=== PATIENT | female | born 1940 | race Caucasian/White ===

== ENCOUNTER 2019-05-29 02:02 | Inpatient (IN) | payer MEDICARE ==
[2019-05-29] MEDS ORDERED: DOPamine 400 MG/D5W 250 ML 250 ML ONE (02:12)
[2019-05-29] MEDS ORDERED: Norepinephrine 8 MG/0.9% NS 250 ML ONE (02:14)
[2019-05-29] MEDS: Norepinephrine 8 MG/0.9% NS 250 ML IVPB SCH ×3 (02:15→23:54)
[2019-05-29] MEDS ORDERED: Acetaminophen 325 MG TAB PO PRN (02:44)
[2019-05-29] MEDS ORDERED: DOPamine 400 MG/D5W 250 ML 250 ML IVPB SCH (03:00)
[2019-05-29] MEDS: Sodium Chloride 0.9% 1,000 ML IV SCH ×3 (03:30→22:50)
[2019-05-29 04:12] LABS: Band 35 % (5-11); Hemoglobin 7.6 g/dL (12.0-16.0); Lymphocytes 10 % (21-51); MDiff Complete? YES; Mean Corpuscular HGB CONC 31.5 g/dL (32.0-36.0); Mean Corpuscular Hemoglobin 29.7 pg (27.0-31.0); Mean Corpuscular Volume 94.3 fL (78.0-98.0); Mean Platelet Volume 9.6 fL (7.4-10.4); Monocytes 11 % (0-10); Neutrophil 44 % (42-75); Nucleated RBC 1 % (0); Platelet Count 111 thou/uL (130-400); Platelet Morphology Comment Appears Decreased; RBC Distribution Width 15.8 % (11.5-14.5); Red Blood Cell (RBC) Count 2.57 mill/uL (4.20-5.40); White Blood Cell (WBC) Count 6.1 thou/uL (4.8-10.8)
[2019-05-29 04:18] LABS: ALT (SGPT) 12 U/L (8-55); AST (SGOT) 23 U/L (5-34); Albumin 2.6 g/dL (3.4-4.8); Alkaline Phosphatase 74 U/L (40-110); Anion Gap 10 mmol/L (10-20); BUN (Urea Nitrogen) 17 mg/dL (9.8-20.1); Bilirubin, Total 0.3 mg/dL (0.2-1.2); CK (CPK) 141 U/L (29-168); Calc. Creatinine Clearance 42 mL/min (70-130); Calcium 8.2 mg/dL (7.8-10.44); Carbon Dioxide 17 mmol/L (23-31); Chloride 115 mmol/L (98-107); Estimated GFR-MDRD 50; Globulin 2.1 g/dL (2.4-3.5); Glucose 66 mg/dL (83-110); Magnesium 1.5 mg/dL (1.6-2.6); Potassium 4.5 mmol/L (3.5-5.1); Protein, Total 4.7 g/dL (6.0-8.3); Sodium 137 mmol/L (136-145)
[2019-05-29 04:20] LABS: Troponin I 0.148 ng/mL (< 0.028)
[2019-05-29] MEDS ORDERED: Cefepime 1 GM in Sodium Chloride 0.9% 100 ML IVPB SCH (06:00)
[2019-05-29] MEDS ORDERED: Vancomycin HCl 1 GM in Premix Bag 1 BAG IVPB SCH (06:00)
--- NOTE | 2019-05-29 06:11 | HP ---
CHIEF COMPLAINT: Transfer from [facility] for sepsis. HISTORY OF PRESENT ILLNESS: This patient is a 79-year-old female, who presented to the [facility] approximately one month ago, at which time, she had fever of unknown origin, but was treated and resolved. The patient has a history of significant coronary artery disease including ventricular tachycardia, requiring pacemaker and defibrillator. She has a history of smoking until 1999, and she had presented previously with a large thyroid mass, surgically removed by Dr. 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 The patient has subsequently been treated by Dr. Newton in [place] and ultimately that led to her prior admission for fever. At that time, she reportedly had a white count of around 1000 and again the workup was negative for any specific source. The patient returned to the hospital in [place] on 05/28 with shortness of breath, cough, and fever. She was somewhat hypotensive, but appeared to improve with some fluid resuscitation and was subsequently admitted to Dr. Alonzo Mix. The patient fairly quickly had some decline in her blood pressures, requiring further fluid resuscitation and initiation of pressors with dopamine. The patient's workup there included labs which were notable for CMP with a BUN of 13, creatinine of 1.5, glucose was 104, and magnesium was 1.2. Her troponin was 0.06, CK-MB 0.87, myoglobin was 438. White count was 2.0, hemoglobin 7.9, and platelets 96. She had 62% segmented neutrophils, 6% bands, 26% lymphocytes, and 6% monocytes. INR was 1.3, PTT 26. Reportedly, her chest x-ray was negative. Given the patient's cardiac history, her underlying cancer, pancytopenia, sepsis with requirement for pressors, the patient was subsequently transferred to this facility for a higher level of care. In [place], the patient was started on a dopamine drip and at one point, a Levophed drip as well. She was started on Tamiflu, vancomycin, and cefepime. Her pressure at the time of transfer was stable with systolic in the 80s on the pressors. REVIEW OF SYSTEMS: All other systems reviewed. The patient reports that she felt like she needed to void. She does have a Rios catheter in place which appears to be draining adequately. 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 Subsequent to the thyroidectomy, the patient has vocal cord dysfunction and hypophonia. She has a history of coronary artery disease with stents, subsequent ventricular tachycardia with a pacemaker defibrillator placed. She is undergoing chemotherapy. The regimen is not presently known. Has hypertension, hyperlipidemia. PAST SURGICAL HISTORY: Coronary stents, total hysterectomy, she has had a patellar fracture repair, left hip fracture repair with subsequent hardware removal. SOCIAL HISTORY: History of smoking for years, quit in 1999. No history of drugs or alcohol. She is full code, and her son was made as her [id number] for healthcare decisions while at the hospital in [place]. FAMILY HISTORY: Notable for heart disease and hypertension. PHYSICAL EXAMINATION: VITAL SIGNS: Temperature is 103, pulse 97, BP 101/58, and O2 saturation 94%. GENERAL APPEARANCE: Age-appropriate female. She has some alopecia. She is hypophonic, but awake and alert, very pleasant, and cooperative. HEENT: PERRL. No OP lesions. Edentulous. NECK: Supple and symmetric. HEART: Regular with no murmurs, gallops, or rubs. LUNGS: Clear bilaterally except there is significant amount of upper airway noise. ABDOMEN: Soft, nontender, and nondistended. There is a palpable fullness in the bladder area, which is minimally tender, feels generally smooth. EXTREMITIES: There is no cyanosis, clubbing, or edema. PSYCH: Normal affect and behavior. NEURO: The patient appears to have normal cognition. Cranial nerves intact. Moves all extremities spontaneously. IMPRESSION AND PLAN: 1. Sepsis, etiology is unclear. She appears to have unremarkable urinalysis and chest x-ray by report, she has very elevated procalcitonin and hypotension with fever. Lactic acid was normal. We will continue with the vancomycin and cefepime for now. We will repeat labs. Obtain a consult from ID. Certainly concerning for the possibility of some aspiration given her difficulty swallowing. She also has this fullness in her pelvis, which may be benign, but needs to be investigated further. We will likely need a CT, however, want to see what her repeat labs look like with regard to her kidney. 2. Acute hypoxic respiratory failure, requiring supplemental oxygen again may be due to some aspiration pneumonitis. We will need to repeat the chest x-ray as well. In the meantime, continue supplemental oxygen as needed. 3. Hypotension. The patient is requiring dopamine and Levophed pressors in order to maintain pressure support. We will continue with IV fluids, normal saline 125 mL/h. 4. History of coronary artery disease, appears to be stable. We will continue with aspirin. Obtain echocardiogram. 5. Hypertension. Avoiding her antihypertensive medications given her hypotension. 6. B-cell lymphoma. Reportedly, her chemotherapy agents may be cardiotoxic as well. We will need to get information from Dr. Shanita Newton in [place] in order to get more detailed information on her chemotherapy regimen. 7. Hypomagnesemia. Recheck levels now. 8. History of ventricular tachycardia with AICD in place. 9. Pelvic/Bladder mass. May need CT to assess. Bladder scan did not reveal a full bladder. Rios is in place and draining some urine. Does not decompress the fullness. Job ID: [id number] MTDD
[2019-05-29] MEDS: Enoxaparin Sodium 40 MG/0.4 ML SYRINGE SC SCH (08:16)
--- NOTE | 2019-05-29 08:23 | RAD ---
CHEST 1 VIEW: HISTORY: Fever and cough. COMPARISON: None. FINDINGS: Abnormal consolidation of right upper lobe, right middle lobe, and right lower lobe. There is also s ome basilar consolidation of the left lung base. No pneumothorax. Port catheter tip projects over the inferior SVC. AICD/pacer leads are in good position. Incomplete evaluation of lumbar spine fusion hardware. IMPRESSION: Findings worrisome for multifocal pneumonia of the right lung versus underlying mass given the port c atheter. Followup after treatment recommended. POS: CET
[2019-05-29] MEDS: Gabapentin 300 MG CAP PO SCH ×3 (09:00→21:20)
[2019-05-29] MEDS: Aspirin 81 mg Enteric Coated Tablet PO SCH (09:00)
[2019-05-29] MEDS ORDERED: Famotidine/PF 20 mg/2ml Vial SLOW IVP SCH (09:00)
[2019-05-29] MEDS ORDERED: Magnesium 2 GM/50 ML 2 GM in Premix Bag 1 BAG IVPB SCH (10:15)
--- NOTE | 2019-05-29 10:44 | CON ---
DATE OF CONSULTATION: HISTORY OF PRESENT ILLNESS: Vesna Madsen is a 79-year-old female, who was transferred from [facility] with for high level of care. The patient's son is at the bedside, who gives adequate history. Six weeks ago, she was found to have a thyroid mass and underwent resection and thyroid tumor was found to be B-cell lymphoma. She then was seen by a local oncologist and received chemotherapy. Unfortunately, ever since the surgery, she is unable to swallow. She has been constantly aspirating. Yesterday, she presented to the hospital with , fever, and pneumonia. She now is on Levophed and dopamine to maintain a systolic blood pressure of 130. She has smoked a pack a day, quit smoking 20 years ago. According to the son who is at the bedside, she has gradually lost some weight. PAST MEDICAL HISTORY: Pertinent otherwise for hypertension; coronary artery disease, angioplasty; B-cell lymphoma, complicated by a vocal cord paralysis causing dysphagia. PAST SURGICAL HISTORY: Otherwise included a left patella surgery, recent thyroid surgery, pacemaker for V-tach. Coronary artery disease with stents, hysterectomy, angioplasty, thyroid surgery. MEDICATIONS: 1. Plavix 75. 2. Lipitor 80. 3. Metoprolol 25 twice a day. 4. Amlodipine 10. 5. Aspirin 81. 6. Gabapentin 300 three times a day. 7. Demadex 10. SOCIAL HISTORY: As noted. No alcohol or drug. ALLERGIES: NO ALLERGIES. REVIEW OF SYSTEMS: Otherwise, unremarkable. PHYSICAL EXAMINATION: VITAL SIGNS: Pulse 122, blood pressure 130/68, saturations 90%, respirations 25. CHEST: Extensive rhonchi and crackles, right greater than left. CARDIAC: Normal S1 and S2. No gallops. ABDOMEN: Soft. LABORATORY DATA: White count 6000, H and H 7.6 and 24, platelet count 111. Lytes are normal. Albumin is 2.6. ASSESSMENT AND PLAN: 1. Recurrent aspiration following thyroid surgeries with vocal cord paralysis. 2. Severe deconditioning, advanced age, B-cell lymphoma, coronary artery disease, right-sided pneumonia, pacemaker. 3. Therapeutic bronchoscopy performed. Continue pressors. I am going to add stress dose of steroids. She is probably going to need a PEG. Discussed with the son, they are agreeable. It is unlikely she is going to improve her swallowing with vocal cord paralysis. This is a 70-minute consultation note, 50% direct patient care. Job ID: [id number]
--- NOTE | 2019-05-29 11:57 | OP ---
DATE OF PROCEDURE: 05/29/2019 PROCEDURES PERFORMED: Bronchoscopy with lavage, therapeutic bronchoscopy. INDICATION: Retained secretions, recurrent aspiration. POSTBRONCHOSCOPY DIAGNOSES: Retained secretions, recurrent aspiration. DESCRIPTION OF PROCEDURE: After informed consent, a bite block was placed in. Posterior pharynx was sprayed with cetacaine. After the bite block was placed in, the flexible bronchoscope was passed. Posterior pharynx with large amount of pus, which was cleaned. The vocal cords were visualized. The left lung appeared to be partially paralyzed. Entering the trachea, there are copious amounts of thick purulent secretions, suctioned, lavaged to clear. Nani was sharp. Thereafter, the right lung was inspected, initially. Right upper lobe and right middle lobe, no endobronchial disease was seen, but some purulent secretions were suctioned and lavaged until completely clear. Left lung inspected thereafter, also was visualized in left upper and left lower lobe without much endobronchial disease, blood or pus. This was also lavaged with normal saline until clear. Washings sent for Gram stain C and S. The patient tolerated the procedure. We are going to start active neb treatments, steroids. Job ID: [id number]
[2019-05-29] MEDS ORDERED: Morphine 2 MG/ML SYRINGE SLOW IVP PRN (12:43)
[2019-05-29] MEDS: Hydrocortisone Sod Succ/PF 100 mg/2 ml Vial IVP SCH ×3 (13:31→23:54)
[2019-05-29] MEDS: MEROPENEM 1 GM/50 ML 1 GM in Premix Bag 1 BAG IVPB SCH ×2 (13:57→21:26)
[2019-05-29] MEDS ORDERED: Senokot S 8.6-50 MG TAB PO PRN (15:50)
--- NOTE | 2019-05-29 15:55 | PDOC.HOSPP ---
- Subjective Encounter Date: 05/29/19 Encounter Time: 12:50 Subjective: bronch in process; admitted w.. sepsis and hypovolumia; pallaitive on board, dexa and dmorphine - Objective Vital Signs & Weight: Vital Signs (12 hours) Pulse Resp Pulse Ox 05/29/19 13:49 100 05/29/19 13:45 114 H 16 100 05/29/19 07:07 96 Weight Weight 130 lb 15.273 oz Most Recent Monitor Data Heart Rate from ECG 110 NIBP 103/68 NIBP BP-Mean 79 Respiration from ECG 13 SpO2 100 I&O: 05/28/19 05/29/19 05/30/19 06:59 06:59 06:59 Intake Total 587.5 852 Output Total 260 150 Balance 327.5 702 Result Diagrams: 05/29/19 03:37 05/29/19 03:37 Hospitalist ROS - Medication Medications: Active Medications Generic Name Dose Route Start Last Admin Trade Name Freq PRN Reason Stop Dose Admin Acetaminophen 650 mg 05/29/19 02:44 05/29/19 07:51 Tylenol PO 650 mg Q4H PRN Administration Headache/Fever/Mild Pain (1-3) Albuterol/Ipratropium 3 ml 05/29/19 13:00 05/29/19 13:45 Duoneb NEB 3 ml [id number] RACHEL Administration Aspirin 81 mg 05/29/19 09:00 05/29/19 09:00 Ecotrin PO Not Given DAILY RACHEL Enoxaparin Sodium 40 mg 05/29/19 09:00 05/29/19 08:16 Lovenox SC 40 mg 0900 RACHEL Administration Gabapentin 300 mg 05/29/19 09:00 05/29/19 09:00 Neurontin PO Not Given TID RACHEL Hydrocortisone Sodium Succinate 50 mg 05/29/19 12:00 05/29/19 13:31 Solu-Cortef IVP 06/05/19 12:01 50 mg Q6HR RACHEL Administration Dopamine HCl/Dextrose 250 mls @ 11.138 mls/hr 05/29/19 03:00 05/29/19 02:15 Dopamine 400 Mg/D5w 250 Ml IVPB 250 mls INF RACHEL Administration Protocol 5 MCG/KG/MIN Norepinephrine Bitartrate 250 mls @ 0 mls/hr 05/29/19 03:30 05/29/19 08:15 Levophed IVPB 250 mls INF RACHEL Administration Protocol Titrate Meropenem 1 gm/ Device 50 mls @ 200 mls/hr 05/29/19 14:00 05/29/19 13:57 IVPB 50 mls Q8HR RACHEL Administration Morphine Sulfate 2 mg 05/29/19 12:43 05/29/19 13:32 Morphine SLOW IVP 2 mg Q6H PRN Administration Pain - Exam General Appearance: NAD, awake alert, ill appearing Eye: PERRL ENT: dry oral mucosa Neck: symmetric Heart: RRR, normal peripheral pulses Respiratory: CTAB, rales, rhonchi Gastrointestinal: normal bowel sounds Hosp A/P - Plan sepsis prob 2/2 hypovolumia/ and pneumonia -afebrile and no high wbcs -ho.e empiric abx w.. merum started given her sig. comorbidity of CA -solucortef to improve the BP -on levophed currently B cell lymphoma Bladder mass CA pain --palliative on board - dexa, morphine and stool softener. Hx of thyroid sux -TSH in nl range - not on suppl't Vocal cord paralaysis -s/p bronch dysphagia, sequelae of above - eval for PEG been discussed w.. son by Dr. Kelsey - it appears that poss trach and peg placement. Comm acqd pneumonia -on merum -no bl gera ordered at the time of admission DVT ppx- lovenox DNR
--- NOTE | 2019-05-29 18:36 | CON ---
DATE OF CONSULTATION: REASON FOR CONSULTATION: Pneumonia, bacteremia. 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 The patient developed a vocal cord dysfunction following thyroidectomy and has had problems with aspiration, had one episode of pneumonia treated in [place] just a few weeks ago. After the most recent episode of chemotherapy treatment, she developed shortness of breath and cough associated with temperature elevation, hypotension. She was admitted and initial creatinine is 1.5 and the white cell count is 2000 with 62% neutrophils, 6% bands. Chest x-ray was within normal limits. She was transferred to this area for higher level of care. Currently, Ms. Madsen is awake, but she is a bit drowsy. She has difficulty in handling her upper airway secretions and has obvious pooling of secretions in the large airways. She will cough intermittently. No headaches. No visual symptoms. No sore throat. No back pain. No chest pain. Mild to moderate dyspnea. No abdominal pain. No diarrhea. No pain in the right subclavian port which is accessed at this time. She was started on broad-spectrum coverage with vancomycin and cefepime. She is on IV fluids and vasopressors. PAST MEDICAL HISTORY: Hypertension, hyperlipidemia, recently diagnosed B-cell lymphoma in thyroid gland with thyroidectomy, vocal cord dysfunction, aspiration pneumonia, recently diagnosed coronary disease with stenting, ventricular tachycardia and AICD placement. PAST SURGICAL HISTORY: As above. Also, hysterectomy, patellar fracture repair and left hip fracture repair with removal of hardware eventually. SOCIAL HISTORY: Lives in the area close to [place], former smoker up to 1999. FAMILY HISTORY: Coronary artery disease, hypertension. CURRENT MEDICATIONS: 1. DuoNeb. 2. Ecotrin. 3. Lipitor. 4. Cipro. 5. Dopamine. 6. Lovenox. 7. Pepcid. 8. Neurontin. 9. Solu-Cortef. 10. Meropenem. 11. Levophed. PHYSICAL EXAMINATION: VITAL SIGNS: T-max 99.5. She was 100.9 earlier today, which was 101 the day before. BP 104/66, pulse 112, respiratory rate 20 to 28, O2 saturation 100 with a regular nasal cannula. Right subclavian port which is accessed. Indwelling Rios catheter. Urinary output ranges from 260-150 daily, balance is positive 300-700. SKIN: With areas of bruising in the upper extremities, the access port, the Rios catheter. HEENT: Some element of temporal wasting. Ocular movements are conjugate. Pupils are somewhat constricted. Conjunctivae normal. Oral cavity with no [place] teeth remaining. No other lesions noted. NECK: Supple, no jugular vein distention. LUNGS: With evidence of some secretions and large airways. Diminished breath sounds at bases. HEART: S1, S2. Regular rate. No S3 or S4. ABDOMEN: Soft, not distended or tender. No ascites. No bladder distention. NEURO: Diffusely weak, but no focal weakness. Plantar responses are flexor. She recognizes family members and where she is, some word-finding difficulty. LABORATORY DATA: White cell count 6.1, hemoglobin 7.6, MCV 94, platelets 111, 35% bands. Sodium 137, creatinine 1.06. Liver profile normal. Albumin 2.6, total protein 4.7, cortisol 22. IMAGING: Chest x-ray with multifocal pneumonia in the right lung. ASSESSMENT: 1. A large cell lymphoma diagnosed through thyroid mass biopsy. 2. Two episodes of chemotherapy with R-CHOP. 3. Swallowing dysfunction with episodes of aspiration. 4. Recurring episodes of pneumonia. DISCUSSION: The patient had a bronchoscopy done with lavage. The vocal cords were visualized. The left lung appeared to not be moving much, copious amounts of thick purulent secretions, suction lavaged to clear. There was no evidence of endobronchial disease. The left lung appeared to be clear. She is immunosuppressed from her chemotherapy and the lymphoma and is having swallowing dysfunction with aspiration, which probably explains both episodes of pneumonia. She does not have dental structures so anaerobic component is less likely. She does have 2/2 sets of blood cultures from [place] positive for a gram-negative geoff which is an aerobe. Yet to be identified, susceptibility tested. In view of the device, the AICD, the possibility of colonization of the device needs to be considered. An echocardiogram is pending. Gram-negative rods have less propensity to attach to those devices. The other possibility is a port infection. I communicated with her oncologist who treats her in [place] and the port was placed in April. The samples were obtained from the port, so I think to be on the safe side and in view of the persistent hypotension, we will go ahead and consult General surgery, Dr. Santiago to assist us with removal of this device in case it is colonized. Switch her to meropenem and levofloxacin to provide broader spectrum of coverage. Discontinue vancomycin. Job ID: [id number]
[2019-05-29] MEDS: Atorvastatin Calcium 40 MG TAB PO SCH (21:20)
[2019-05-29] MEDS: Ciprofloxacin Lactate/D5W 200 MG in Premix Bag 1 BAG IVPB SCH (21:25)
--- NOTE | 2019-05-30 00:05 | CON ---
DATE OF CONSULTATION: HISTORY OF PRESENT ILLNESS: Ms. Madsen is a 79-year-old female, admitted today with sepsis, transferred to [place]. She has history of thyroidectomy, lymphoma. She has problems swallowing. Speech has evaluated her and her swallow is not possible at all. Dr. Kelsey has done a bronchoscopy. She has pus in her lungs. She is septic. She is on Levophed. White count is 6.1, with 35% band count, hemoglobin 7.6. Renal function is normal. ALLERGIES: NONE. SOCIAL HISTORY: Tobacco, none. Alcohol, none. MEDICATIONS: In the hospital: 1. Cipro IV. 2. Solu-Cortef. 3. Meropenem. 4. Morphine. 5. Levophed. PAST MEDICAL HISTORY: B-cell lymphoma found on thyroidectomy, swallow dysfunction, vocal cord dysfunction, history of coronary artery disease with stents, history of ventricular tachycardia with pacemaker, defibrillator placement, undergoing chemotherapy, hypertension, hyperlipidemia. PAST SURGICAL HISTORY: Coronary stents, total hysterectomy, thyroidectomy, bilateral knee surgery, left hip ORIF with subsequent removal. The patient smoked until 2000. She has quit. PHYSICAL EXAMINATION: GENERAL: The patient is on Levophed drip, being weaned. VITAL SIGNS: 5 foot, 230 pounds, 124/82, 96, 98.8 degrees. HEAD, EARS, EYES, NOSE, AND THROAT: Unremarkable. LUNGS: Clear to auscultation. No rhonchi or rales. CARDIAC: Regular rate and rhythm. ABDOMEN: Soft. EXTREMITIES: Unremarkable. MediPort right chest with normal skin, accessed with a catheter. ASSESSMENT AND PLAN: Sepsis, Levophed, more likely from aspiration pneumonia. I have been asked initially to remove her MediPort, but I have discussed with Dr. Kelsey and Dr. Vidales. At this point, we will leave her MediPort. Her oncologist in [place] states that she is probably not a candidate for chemotherapy in the future but at this point, we will leave her MediPort as we are not sure this is the source of her infection. This can be removed later, she so desires. It is currently being used for IV access as necessary. At this point, we will plan placement of a PEG tube tomorrow bedside, endoscopy suite under sedation local. We will place a central line if necessary. Dr. Vidales prefers a PICC line. This can be done. Job ID: [id number]
[2019-05-30] MEDS: Morphine 2 MG/ML SYRINGE SLOW IVP PRN (00:37)
[2019-05-30] MEDS: Hydrocortisone Sod Succ/PF 100 mg/2 ml Vial IVP SCH ×3 (05:00→16:23)
[2019-05-30] MEDS: MEROPENEM 1 GM/50 ML 1 GM in Premix Bag 1 BAG IVPB SCH ×3 (05:00→21:31)
[2019-05-30 05:59] LABS: Anion Gap 14 mmol/L (10-20); BUN (Urea Nitrogen) 24 mg/dL (9.8-20.1); Calc. Creatinine Clearance 43 mL/min (70-130); Carbon Dioxide 15 mmol/L (23-31); Chloride 117 mmol/L (98-107); Estimated GFR-MDRD 53; Glucose 71 mg/dL (83-110); Potassium 4.7 mmol/L (3.5-5.1); Sodium 141 mmol/L (136-145)
[2019-05-30 06:56] LABS: Band 35 % (5-11); Crenated RBC SLIGHT = 1-5 cells (100X) (None Seen); Hemoglobin 9.5 g/dL (12.0-16.0); Lymphocytes 3 % (21-51); MDiff Complete? YES; Mean Corpuscular HGB CONC 32.5 g/dL (32.0-36.0); Mean Corpuscular Hemoglobin 30.2 pg (27.0-31.0); Mean Platelet Volume 9.8 fL (7.4-10.4); Monocytes 8 % (0-10); Neutrophil 54 % (42-75); Platelet Count 65 thou/uL (130-400); Platelet Morphology Comment Appears Decreased; RBC Distribution Width 14.9 % (11.5-14.5); Red Blood Cell (RBC) Count 3.15 mill/uL (4.20-5.40); Toxic Granulation SLIGHT; White Blood Cell (WBC) Count 15.6 thou/uL (4.8-10.8)
--- NOTE | 2019-05-30 09:30 | PRG ---
DATE OF SERVICE: 05/30/2019 SUBJECTIVE: This morning, she is awake, alert, responsive. She is better. X-ray still shows pretty much right-sided extensive pneumonia. She is now on meropenem, Cipro, and Maxipime antibiotic. Cultures have been negative. OBJECTIVE: VITAL SIGNS: Pulse is 92, blood pressure is 106/68, sats are 100%, respirations 18. CHEST: Bilateral rhonchi and crackles, right greater than left. CARDIAC: Normal S1, S2. No gallops. ABDOMEN: No masses. LABORATORY DATA: Thyroid function is normal. Cortisol level is 22. White blood count is 15,000, H and H are normal, platelet count is 65,000. ASSESSMENT AND PLAN: 1. Thrombocytopenia. 2. Lymphoma, status post chemo. 3. Aspiration pneumonia. Continue hydrocortisone. She is off all pressors . ENT was consulted to see can be done about the paralyzed vocal cords. PEG today. Nutrition, PT. We will follow. Job ID: [id number]
--- NOTE | 2019-05-30 09:36 | RAD ---
SINGLE VIEW OF THE CHEST: Comparison: 05-29-2019 History: Ventilated patient with respiratory failure. FINDINGS: Single view of the chest shows a cardiomediastinal silhouette which is upper limits of normal in size . The Mediport and pacemaker are unchanged in position. Multifocal mixed opacities are seen in the ri ght upper and lower lobes consistent with pneumonia. IMPRESSION: Stable right sided pneumonia. POS: C
[2019-05-30] MEDS: Sodium Chloride 0.9% 1,000 ML IV SCH (10:33)
[2019-05-30] MEDS: Famotidine/PF 20 mg/2ml Vial SLOW IVP SCH (10:33)
[2019-05-30] MEDS: Ciprofloxacin Lactate/D5W 200 MG in Premix Bag 1 BAG IVPB SCH ×2 (10:34→21:31)
[2019-05-30] MEDS ORDERED: Ketamine 50 MG/ML (10ML VIAL) ONE (12:44)
[2019-05-30] MEDS ORDERED: Fentanyl 100 MCG/2 ML VIAL ONE (12:44)
[2019-05-30] MEDS ORDERED: Midazolam HCl 2 mg/2 ml Vial ONE (12:44)
--- NOTE | 2019-05-30 12:49 | PDOC.HOSPP ---
- Subjective Encounter Date: 05/30/19 Encounter Time: 12:10 Subjective: pt quite fatigued, ENT consulted, PEG placement consideration. - Objective Vital Signs & Weight: Vital Signs (12 hours) Temp Pulse Resp Pulse Ox 05/30/19 07:11 90 15 100 05/30/19 04:00 98.1 F Weight Admit Weight 130 lb Weight 129 lb 6.581 oz Most Recent Monitor Data Heart Rate from ECG 91 NIBP 124/73 NIBP BP-Mean 90 Respiration from ECG 23 SpO2 99 I&O: 05/29/19 05/30/19 05/31/19 06:59 06:59 06:59 Intake Total 587.5 2902.8 Output Total 260 469 55 Balance 327.5 2433.8 -55 Result Diagrams: 05/30/19 05:40 05/30/19 05:40 Hospitalist ROS - Medication Medications: Active Medications Generic Name Dose Route Start Last Admin Trade Name Freq PRN Reason Stop Dose Admin Acetaminophen 650 mg 05/29/19 02:44 05/29/19 07:51 Tylenol PO 650 mg Q4H PRN Administration Headache/Fever/Mild Pain (1-3) Albuterol/Ipratropium 3 ml 05/29/19 13:00 05/30/19 07:11 Duoneb NEB 3 ml [id number] RACHEL Administration Aspirin 81 mg 05/29/19 09:00 05/29/19 09:00 Ecotrin PO Not Given DAILY RACHEL Atorvastatin Calcium 80 mg 05/29/19 21:00 05/29/19 21:20 Lipitor PO Not Given HS RACHEL Enoxaparin Sodium 40 mg 05/29/19 09:00 05/29/19 08:16 Lovenox SC 40 mg 0900 RACHEL Administration Famotidine 20 mg 05/30/19 09:00 05/30/19 10:33 Pepcid SLOW IVP 20 mg 0900 RACHEL Administration Gabapentin 300 mg 05/29/19 09:00 05/29/19 21:20 Neurontin PO Not Given TID RACHEL Hydrocortisone Sodium Succinate 50 mg 05/29/19 12:00 05/30/19 10:33 Solu-Cortef IVP 06/05/19 12:01 50 mg Q6HR RACHEL Administration Dopamine HCl/Dextrose 250 mls @ 11.138 mls/hr 05/29/19 03:00 05/29/19 02:15 Dopamine 400 Mg/D5w 250 Ml IVPB 250 mls INF RACHEL Administration Protocol 5 MCG/KG/MIN Norepinephrine Bitartrate 250 mls @ 0 mls/hr 05/29/19 03:30 05/29/19 23:54 Levophed IVPB 250 mls INF RACHEL Administration Protocol Titrate Ciprofloxacin/Dextrose 200 mg/ 100 mls @ 100 mls/hr 05/29/19 21:00 05/30/19 10:34 Device IVPB 100 mls Q12HR RACHEL Administration Meropenem 1 gm/ Device 50 mls @ 200 mls/hr 05/29/19 14:00 05/30/19 05:00 IVPB 50 mls Q8HR RACHEL Administration Sodium Chloride 1,000 mls @ 50 mls/hr 05/29/19 14:45 05/30/19 10:33 Normal Saline 0.9% IV 1,000 mls .Q20H RACHEL Administration Morphine Sulfate 2 mg 05/29/19 15:51 05/30/19 00:37 Morphine SLOW IVP 2 mg Q4H PRN Administration Pain Sodium Chloride 10 ml 05/29/19 21:00 05/30/19 10:46 Flush - Normal Saline IVF 10 ml Q12HR RACHEL Administration - Exam General Appearance: ill appearing Eye: PERRL ENT: normocephalic atraumatic Neck: supple Heart: RRR, no gallops Respiratory: normal chest expansion, rales, wheezes Gastrointestinal: no splenomegaly Hosp A/P - Plan sepsis prob 2/2 hypovolumia/ and pneumonia -afebrile and no high wbcs -ho.e empiric abx w.. merum started given her sig. comorbidity of CA -solucortef to improve the BP -on levophed currently B cell lymphoma Bladder mass CA pain --palliative on board - dexa, morphine and stool softener. Hx of thyroid sux -TSH in nl range - not on suppl't Vocal cord paralaysis -s/p bronch -ENt consult placed dysphagia, sequelae of above - eval for PEG been discussed w.. son by Dr. Kelsey - it appears that poss trach and peg placement. Comm acqd pneumonia -on merum -no growth in bl gera plan for PEG evaluation. DVT ppx- lovenox DNR
[2019-05-30] MEDS: Aspirin 81 mg Enteric Coated Tablet PO SCH (15:43)
[2019-05-30] MEDS: Enoxaparin Sodium 40 MG/0.4 ML SYRINGE SC SCH (15:44)
[2019-05-30] MEDS: Gabapentin 300 MG CAP PO SCH ×3 (15:44→21:31)
--- NOTE | 2019-05-30 15:54 | RAD ---
RADIOGRAPH CHEST 1 VIEW: Date: 05/30/19 Time: 2:56 p.m. HISTORY: 79-year-old female with abnormal chest radiograph. Follow-up. COMPARISON: 05/30/19, 4:57 a.m. FINDINGS: Alveolar infiltrates at right upper, mid and lower lung zones are again demonstrated, consistent with pneumonia. Moderately large, dense opacification of medial aspect of right upper lobe. Right subclav paco implantable vascular access port. Left subclavian AICD. Left upper lobe is relatively clear. Nons pecific mildly increased attenuation in left lower lobe. Allowing for positional and technical differ ences, there is probably no interval change. No cardiomegaly. No pneumothorax. IMPRESSION: 1. No interval change since 4:57 AM. 2. Extensive right upper lobe and right lower lung zone pneumonia. 3. Right upper lobe dense opacity could represent malignant neoplastic tumor or pneumonia. JN [] POS: TPC
--- NOTE | 2019-05-30 17:56 | PRG ---
DATE OF SERVICE: 05/30/2019 SUBJECTIVE: Ms. Madsen is awake. She is more alert. She answers questions with some difficulty because of her hypopharyngeal issues. She denies headaches. Mild dyspnea. No chest pain. No abdominal pain. She has been afebrile since admission. The vasopressors have been discontinued and she is being transferred to [facility]. OBJECTIVE: VITAL SIGNS: Blood pressure 114/69, O2 saturation 100 with nasal cannula O2. HEENT: The ocular movements are conjugate. Oral cavity is dry. : She has an indwelling Rios catheter. She has a port still in place and she has a right groin central line catheter inserted. GI: Gastrostomy tube was placed yesterday. Abdomen is soft, not distended or tender. No ascites. No bladder distention. LUNGS: There is evidence of large airway secretions. There are diminished breath sounds in the right side, but a few inspiratory crackles but not many. No wheezing. The left side is clear. CVS: S1 and S2, regular rate without murmurs. MUSCULOSKELETAL: No joint inflammatory activity. No edema. Pulses are 1+. Plantar responses are flexor. LABORATORY DATA: White cell count was 6.1 and now is 15.6, hemoglobin is 9.5, platelets 65,000, 54% neutrophils and 35% bands. Creatinine is at 1.02. Liver profile normal. Albumin 2.6. Two sets of blood cultures have been received and cultures are in progress. The cultures from [facility] have yielded Pseudomonas aeruginosa with pending susceptibilities. Repeat chest x-ray today, no evidence of changes. She still has a dense opacification of medial aspect of the right upper lobe. The port, left subclavian AICD. ASSESSMENT: 1. Extranodal large cell B lymphoma, diagnosed in [place], on chemotherapy with R-CHOP. 2. Pneumonia with aspiration. 3. Pseudomonas aeruginosa bacteremia. 4. Swallowing dysfunction. DISCUSSION: Going forward, the patient would continue on meropenem and ciprofloxacin. Awaiting on the final susceptibility results of the organism retrieved from [place], hopefully tomorrow, we will have further information. There is evidence of clinical improvement on the current regimen, so we will not change the meropenem or ciprofloxacin. The doses will remain the same. It is not clear why the right groin catheter was inserted. I would advise removal of the catheter. The port has been maintained in place. It is more likely that the pneumonia is responsible for the bacteremia, but the ports will remain a concern and we will continue monitoring the results of the second set of blood cultures obtained in this hospital. The AICD is another element of concern for colonization and may have to reconsider that depending on the results of the second set of blood cultures. Job ID: [id number]
--- NOTE | 2019-05-30 18:37 | OP ---
DATE OF PROCEDURE: 05/30/2019 PREOPERATIVE DIAGNOSES: Lymphoma, aspiration pneumonia, dysphagia, malnutrition, poor IV access. POSTOPERATIVE DIAGNOSES: Lymphoma, aspiration pneumonia, dysphagia, malnutrition, poor IV access, left IJ outflow and right IJ outflow occluded, left subclavian vein pacemaker in place, right subclavian vein MediPort. PROCEDURES PERFORMED: Unsuccessful placement of right IJ central line. Placement of left femoral vein central line had to be removed due to bleeding. Right femoral vein triple-lumen catheter. PEG tube placement. Ultrasound used for line placement. DESCRIPTION OF PROCEDURE: The patient was taken to the operating room, where under intravenous sedation, neck and chest were prepared with ChloraPrep and draped in routine fashion. The patient had a left subclavian vein pacemaker and the right subclavian vein MediPort. Ultrasound was used to visualize both the right and left internal jugular veins. Trocar catheter was cannulated both IJs, but the J-wire was not thread. Local anesthetic 1% Xylocaine had been used. Left groin central line was then placed using Seldinger technique, cannulating the femoral vein, obtaining good venous blood, J-wire threaded, trocar catheter removed. Skin site was enlarged sharply. Triple-lumen catheter was placed, and J-wire was removed. Catheter secured, but then developed arterial bleeding from the puncture site. We held pressure and this persisted. Thus, the line was removed, pressure held and it became hemostatic. Right groin was then prepared with ChloraPrep. used to place a right femoral vein triple-lumen catheter and J-wire had been removed. Catheter was secured with 3-0 silk sutures, and sterile dressing applied. Each port aspirated with blood, flushed with saline solution. Endoscope was placed per os under direct visualization. Using air insufflation, passed throughout the esophagus into the stomach. There was some difficulty insufflating the stomach, but I was able to inflate it. A good indentation noted in left medial subcostal. Local anesthetic was infiltrated in the skin and subcutaneous tissue after ChloraPrep, and trocar catheter was placed through the stab incision and into the stomach, visualized endoscopically, grasping the wire introduced through this and then the endoscope and wire brought out through the esophagus. Feeding tube connected and lubricated and dropped back down through the mouth and secured to the abdominal wall with a fixation device. Tube tailored to length and the feeding device secured. Sterile dressing applied. The patient tolerated the procedure well. Job ID: [id number]
[2019-05-30] MEDS: Atorvastatin Calcium 40 MG TAB PO SCH (21:31)
[2019-05-31] MEDS: Hydrocortisone Sod Succ/PF 100 mg/2 ml Vial IVP SCH ×4 (00:09→19:09)
[2019-05-31] MEDS: Sodium Chloride 0.9% 1,000 ML IV SCH ×3 (00:10→22:13)
[2019-05-31] MEDS: MEROPENEM 1 GM/50 ML 1 GM in Premix Bag 1 BAG IVPB SCH ×3 (05:59→22:11)
[2019-05-31 06:14] LABS: Hemoglobin 7.8 g/dL (12.0-16.0); Mean Corpuscular HGB CONC 33.6 g/dL (32.0-36.0); Mean Corpuscular Hemoglobin 31.4 pg (27.0-31.0); Mean Corpuscular Volume 93.5 fL (78.0-98.0); Mean Platelet Volume 11.1 fL (7.4-10.4); Platelet Count 59 thou/uL (130-400); RBC Distribution Width 15.3 % (11.5-14.5); Red Blood Cell (RBC) Count 2.49 mill/uL (4.20-5.40); White Blood Cell (WBC) Count 17.2 thou/uL (4.8-10.8)
[2019-05-31 06:29] LABS: Anion Gap 14 mmol/L (10-20); BUN (Urea Nitrogen) 30 mg/dL (9.8-20.1); Calc. Creatinine Clearance 52 mL/min (70-130); Calcium 9.2 mg/dL (7.8-10.44); Carbon Dioxide 17 mmol/L (23-31); Chloride 118 mmol/L (98-107); Estimated GFR-MDRD 60; Glucose 101 mg/dL (83-110); Potassium 4.1 mmol/L (3.5-5.1); Sodium 145 mmol/L (136-145)
[2019-05-31 06:57] LABS: Band 14 % (5-11); Burr Cells MODERATE= 6-15 cells (100X) (0-1/hpf); Dohle Bodies SLIGHT; Large Platelets SLIGHT; MDiff Complete? YES; Monocytes 5 % (0-10); Myelocyte 3 % (0-0); Neutrophil 78 % (42-75); Platelet Morphology Comment Appears Decreased; Toxic Granulation SLIGHT
[2019-05-31] MEDS: Famotidine/PF 20 mg/2ml Vial SLOW IVP SCH (09:51)
[2019-05-31] MEDS: Aspirin 81 mg Enteric Coated Tablet PO SCH (09:51)
[2019-05-31] MEDS: Enoxaparin Sodium 40 MG/0.4 ML SYRINGE SC SCH (09:51)
[2019-05-31] MEDS: Gabapentin 300 MG CAP PO SCH ×3 (09:51→20:27)
[2019-05-31] MEDS: Ciprofloxacin Lactate/D5W 200 MG in Premix Bag 1 BAG IVPB SCH ×2 (09:52→20:29)
[2019-05-31] MEDS: Morphine 2 MG/ML SYRINGE SLOW IVP PRN (09:54)
--- NOTE | 2019-05-31 10:06 | RAD ---
PORTABLE SEMI-UPRIGHT FRONTAL CHEST RADIOGRAPH: 05/31/2019 HISTORY: Ventilated patient. COMPARISON: 05/30/2019 FINDINGS: Persistent dense opacity within the medial left base suggests left basilar consolidation/collapse. Bryant zy nonspecific air space disease is noted in the right upper lobe. Soft tissue density in the right p aratracheal region may signify volume loss or adenopathy/mass lesion. Right sided Port-A-Cath present . No pneumothorax. Heart and mediastinal contours are stable. IMPRESSION: Stable appearance of the chest, as described above. POS: XIN
--- NOTE | 2019-05-31 13:37 | PDOC.HOSPP ---
- Subjective Subjective: Follow-up evaluation on patient with lymphoma, dysphasia status post PEG tube or Dr. Santiago. Patient's antibiotics for pseudomonas bacteremia and pneumonia with ciprofloxacin and meropenem are being managed by infectious disease specialist. Status post bronchoscopy by Dr. Kelsey. Patient has very soft voice, hard to hear and understand. ENT is on the case and talking about vocal cord injection possibly early next week as in Sunday to strengthen her voice. - Objective Vital Signs & Weight: Vital Signs (12 hours) Temp Pulse Pulse Pulse Resp BP BP 05/31/19 13:10 102 H 13 05/31/19 11:10 104 H 103 H 111/70 117/79 05/31/19 08:34 102 H 14 05/31/19 08:00 05/31/19 07:36 97.1 F L 05/31/19 03:47 97.8 F 05/31/19 01:39 96 16 Pulse Ox Pulse Ox Pulse Ox 05/31/19 13:10 05/31/19 11:10 96 98 05/31/19 08:34 05/31/19 08:00 100 05/31/19 07:36 05/31/19 03:47 05/31/19 01:39 97 Weight Admit Weight 130 lb Weight 139 lb 11.2 oz Most Recent Monitor Data Heart Rate from ECG 104 NIBP 117/79 NIBP BP-Mean 91 Respiration from ECG 18 SpO2 97 I&O: 05/30/19 05/31/19 06/01/19 06:59 06:59 06:59 Intake Total 2902.8 1177 180 Output Total 469 365 Balance 2433.8 812 180 Result Diagrams: 05/31/19 05:52 05/31/19 05:52 Radiology Reviewed by me: Yes Hospitalist ROS - Review of Systems All other systems reviewed; all pertinent +/- noted in HPI/Subj - Medication Medications: Active Medications Generic Name Dose Route Start Last Admin Trade Name Freq PRN Reason Stop Dose Admin Acetaminophen 650 mg 05/29/19 02:44 05/29/19 07:51 Tylenol PO 650 mg Q4H PRN Administration Headache/Fever/Mild Pain (1-3) Albuterol/Ipratropium 3 ml 05/29/19 13:00 05/31/19 13:10 Duoneb NEB 3 ml [id number] RACHEL Administration Aspirin 81 mg 05/29/19 09:00 05/31/19 09:51 Ecotrin PO 81 mg DAILY RACHEL Administration Atorvastatin Calcium 80 mg 05/29/19 21:00 05/30/19 21:31 Lipitor PO 80 mg HS RACHEL Administration Enoxaparin Sodium 40 mg 05/29/19 09:00 05/31/19 09:51 Lovenox SC 40 mg 0900 RACHEL Administration Famotidine 20 mg 05/30/19 09:00 05/31/19 09:51 Pepcid SLOW IVP 20 mg 0900 RACHEL Administration Gabapentin 300 mg 05/29/19 09:00 05/31/19 09:51 Neurontin PO 300 mg TID RACHEL Administration Hydrocortisone Sodium Succinate 50 mg 05/29/19 12:00 05/31/19 05:59 Solu-Cortef IVP 06/05/19 12:01 50 mg Q6HR RACHEL Administration Dopamine HCl/Dextrose 250 mls @ 11.138 mls/hr 05/29/19 03:00 05/29/19 02:15 Dopamine 400 Mg/D5w 250 Ml IVPB 250 mls INF RACHEL Administration Protocol 5 MCG/KG/MIN Norepinephrine Bitartrate 250 mls @ 0 mls/hr 05/29/19 03:30 05/29/19 23:54 Levophed IVPB 250 mls INF RACHEL Administration Protocol Titrate Ciprofloxacin/Dextrose 200 mg/ 100 mls @ 100 mls/hr 05/29/19 21:00 05/31/19 09:52 Device IVPB 100 mls Q12HR RACHEL Administration Meropenem 1 gm/ Device 50 mls @ 200 mls/hr 05/29/19 14:00 05/31/19 05:59 IVPB 50 mls Q8HR RACHEL Administration Sodium Chloride 1,000 mls @ 50 mls/hr 05/29/19 14:45 05/31/19 07:40 Normal Saline 0.9% IV 1,000 mls .Q20H RACHEL Administration Morphine Sulfate 2 mg 05/29/19 15:51 05/31/19 09:54 Morphine SLOW IVP 2 mg Q4H PRN Administration Pain Sodium Chloride 10 ml 05/29/19 21:00 05/31/19 09:51 Flush - Normal Saline IVF 10 ml Q12HR RACHEL Administration - Exam General Appearance: NAD, awake alert Eye: PERRL ENT: normocephalic atraumatic, moist mucosa Neck: supple, symmetric, no lymphadenopathy Heart: no murmur, no gallops, no rubs Respiratory: CTAB, no wheezes, no rales, no ronchi, normal chest expansion Gastrointestinal: soft, non-tender, non-distended, no guarding, no rigidity Extremities: no edema Skin: no lesions, no rashes Neurological: cranial nerve grossly intact, no focal deficits Musculoskeletal: generalized weakness Psychiatric: normal affect, normal behavior Hosp A/P (1) Lymphoma Status: Acute (2) Dysphagia Code(s): R13.10 - DYSPHAGIA, UNSPECIFIED Status: Acute (3) Aspiration into airway Code(s): T17.908A - UNSP FB IN RESP TRACT, PART UNSP CAUSING OTH INJURY, INIT Status: Acute (4) Bacteremia Code(s): R78.81 - BACTEREMIA Status: Acute (5) Pseudomonas aeruginosa infection Code(s): A49.8 - OTHER BACTERIAL INFECTIONS OF UNSPECIFIED SITE Status: Acute (6) 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 - OTHER CONGENITAL MALFORMATIONS OF LARYNX Status: Acute - Plan Plan: intermediate medical care floor pulmonology consultation, recommendations appreciated ENT consultation, recommendations appreciated infectious disease consultation, recommendations appreciated may require direct visualization and vocal cord injection by ENT to regain her voice status post bronchoscopy, please see full operative report for details status post PEG tube placement, see full operative report for details continue broad-spectrum antibiotics for pseudomonas bacteremia modify antibiotics appropriately per infectious disease specialist repeat blood cultures bronchial washings continue other home medications as able blood pressure control blood sugar control G.I. prophylaxis DVT prophylaxis
--- NOTE | 2019-05-31 18:22 | PRG ---
DATE OF SERVICE: 05/31/2019 SUBJECTIVE: Ms. Madsen is clinically stable. She has some degree of dysphagia where she is not clearing her saliva, but she is in no distress. OBJECTIVE: VITAL SIGNS: Heart rates in the 90s to just over 100, blood pressure 111/70, respiratory rates in the teens. LUNGS: Clear. HEART: Regular rhythm. ABDOMEN: Soft. LABORATORY DATA: White count 17.2, hemoglobin 7.8, platelets 59. She has mild hyperchloremia with a chloride of 118 and bicarb of 17. Creatinine is normal. IMPRESSION: Lymphoma with swallowing dysfunction, status post PEG. Blood cultures are negative. Urine cultures are negative. There was Pseudomonas isolated in her bronchial washing. It is unclear whether this is a pathogen or colonizer given her chronic illness. Given that she does have infiltrates in her lung parenchyma, I suspect this is a pathogen. PLAN: We will continue with supportive care. Job ID: [id number]
[2019-05-31] MEDS: Atorvastatin Calcium 40 MG TAB PO SCH (20:27)
--- NOTE | 2019-05-31 21:00 | CON ---
DATE OF CONSULTATION: CHIEF COMPLAINT: Respiratory failure, left true vocal fold paralysis, dysphagia, and aspiration pneumonia. HISTORY OF PRESENT ILLNESS: The patient is a 79-year-old female patient who presented as a transfer from [facility] for aspiration pneumonia for a higher level of care. The patient's history was given by family, primarily her son. Roughly 6 weeks ago, she was found to have a left thyroid mass and underwent surgical resection. The thyroid tumor was identified as B-cell lymphoma and subsequently suffered loss of voice and also a left true vocal fold paralysis. She was initially treated with chemotherapy by a local oncologist; however, since her surgery, she was unable to tolerate p.o. and has been coughing or choking on liquids and foods when swallowing. She presented to the hospital intubated with fever and pneumonia. She has been treated with pressure support in the ICU as well with IV antibiotics. She does have a significant smoking history, however, was distant, roughly 20 or plus years ago. PAST MEDICAL HISTORY: Positive for hypertension, coronary artery disease, history of angioplasty, recent diagnosis of B-cell lymphoma, and also current vocal fold paralysis causing aspiration. PAST SURGICAL HISTORY: Includes left thyroid lobectomy, placement of a pacemaker, percutaneous stents for coronary artery disease, hysterectomy, and a left patellar knee surgery. CURRENT MEDICATIONS: 1. Plavix. 2. Lipitor. 3. Metoprolol. 4. Amlodipine. 5. Aspirin. 6. Gabapentin. 7. Demadex. SOCIAL HISTORY: No illicit drug use or no alcohol use. History of smoking. Currently, son provides information for care and for medical history. ALLERGIES: NO KNOWN DRUG ALLERGIES. REVIEW OF SYSTEMS: The patient describes as negative other than what is listed in the HPI. PHYSICAL EXAMINATION: GENERAL: The patient is alert, however, somnolent and oriented. HEENT: Face and head; normocephalic, atraumatic. No facial skin lesions. No maxillary or frontal tenderness. No parotid gland or submandibular gland masses or lesions or tenderness. Eyes; extraocular movements are intact. Pupils are equally round and reactive to light. There is no spontaneous nystagmus. Ears; right and left pinna are normal. EACs are clear. No evidence of drainage or infection. Nasal cavity; external nose is normal. Nasal mucosa is healthy. Turbinates are healthy. There is moderate crusting on nasal mucous. No masses or lesions. Oral cavity; tongue is soft and oral mucosa is moist without lesions. Tongue and floor of mouth are soft without masses. Palate and uvula are normal without lesions. There is no swelling, edema, erythema, or sign of infection. Nasopharynx, hypopharynx, and larynx per scope evaluation; nasopharynx is clear. No masses or lesions noted. Posterior pharynx, oropharynx, base of tongue, vallecula and epiglottis, and true vocal folds as well as the false vocal folds and arytenoids and pyriform sinuses are clear with no masses or lesions. The right true vocal fold is mobile and continues to the midline with effort to phonate ; however, the left true vocal fold was in the paramedian position and is immobile. NECK: No lymphadenopathy. Trachea is midline. There is an incision in the central neck, however, no significant masses are palpated. NEUROLOGIC: Cranial nerves 2 through 12 are grossly intact. Mood and affect are normal. DIAGNOSTIC DATA: Please see chest x-rays. ASSESSMENT AND PLAN: A 79-year-old female with significant aspiration, leading to current pneumonia and also aphonia with dysphagia and aspiration with any p.o. Given the patient's difficulty with eating, her primary team has ordered her a PEG tube for placement. We have discussed with her primary physician the need for true vocal fold augmentation in order to help close the glottic gap and hopefully potentially prevent future aspiration, and Dr. Garza is in agreement. Given the patient's current respiratory status, however, we would like the patient to have a few more days of IV antibiotics and possibly supplemental oxygen before attempting another intubation, which would be required for an appropriate true vocal fold injection in a currently ill patient. Given her left true vocal fold paralysis, I do not believe that her vocal fold will have a significant recovery. However, if she does have a significant recovery over time, then temporary injection will dissolve leaving a functional vocal fold. However, given her recent surgery and the distance from her surgery and the complete immobility, it is unlikely that recovery will be significant in the interim. She does have significant risk of aspiration and left true vocal fold augmenting injection would likely prevent her having future aspiration and will also help her phonate and will give her the significant benefit of being able to forcefully inflate the lungs, which would prevent future infection and help with the recovery from pneumonia with greater pulmonary toilet. Given these issues, we have scheduled a procedure to be performed on Sunday of the following week. Job ID: [id number]
[2019-06-01] MEDS: Hydrocortisone Sod Succ/PF 100 mg/2 ml Vial IVP SCH ×4 (00:02→20:36)
[2019-06-01 04:46] LABS: Anion Gap 11 mmol/L (10-20); BUN (Urea Nitrogen) 30 mg/dL (9.8-20.1); Calc. Creatinine Clearance 55 mL/min (70-130); Calcium 8.8 mg/dL (7.8-10.44); Carbon Dioxide 20 mmol/L (23-31); Chloride 119 mmol/L (98-107); Estimated GFR-MDRD 65; Glucose 151 mg/dL (83-110); Potassium 3.9 mmol/L (3.5-5.1); Sodium 146 mmol/L (136-145)
[2019-06-01] MEDS: Sodium Chloride 0.9% 1,000 ML IV SCH ×2 (05:01→20:53)
[2019-06-01 05:11] LABS: Band 16 % (5-11); Burr Cells SLIGHT = 2-5 cells (100X) (0-1/hpf); Dohle Bodies SLIGHT; Hemoglobin 7.1 g/dL (12.0-16.0); Large Platelets SLIGHT; Lymphocytes 1 % (21-51); MDiff Complete? YES; Mean Corpuscular HGB CONC 34.2 g/dL (32.0-36.0); Mean Corpuscular Hemoglobin 31.7 pg (27.0-31.0); Mean Corpuscular Volume 92.5 fL (78.0-98.0); Mean Platelet Volume 11.1 fL (7.4-10.4); Monocytes 3 % (0-10); Myelocyte 3 % (0-0); Neutrophil 77 % (42-75); Nucleated RBC 1 % (0); Platelet Count 64 thou/uL (130-400); Platelet Morphology Comment Appears Decreased; RBC Distribution Width 15.5 % (11.5-14.5); Red Blood Cell (RBC) Count 2.23 mill/uL (4.20-5.40); Toxic Granulation SLIGHT; White Blood Cell (WBC) Count 16.1 thou/uL (4.8-10.8)
[2019-06-01] MEDS: MEROPENEM 1 GM/50 ML 1 GM in Premix Bag 1 BAG IVPB SCH ×3 (06:14→22:28)
--- NOTE | 2019-06-01 08:46 | RAD ---
EXAM: Single view of the chest HISTORY: Ventilated patient with respiratory failure COMPARISON: 05/31/2019 FINDINGS: Single view of the chest shows a normal sized cardiomediastinal silhouette. The pacemaker and Mediport are unchanged in position. Increased interstitial markings are present. Stable opacity is seen projecting over the right upper lobe. The bones are unremarkable. IMPRESSION: Stable exam
[2019-06-01] MEDS: Gabapentin 300 MG CAP PO SCH ×3 (09:15→20:36)
[2019-06-01] MEDS: Aspirin 81 mg Enteric Coated Tablet PO SCH (09:15)
[2019-06-01] MEDS: Ciprofloxacin Lactate/D5W 200 MG in Premix Bag 1 BAG IVPB SCH (09:16)
[2019-06-01] MEDS: Famotidine/PF 20 mg/2ml Vial SLOW IVP SCH (09:16)
[2019-06-01] MEDS: Enoxaparin Sodium 40 MG/0.4 ML SYRINGE SC SCH (09:16)
--- NOTE | 2019-06-01 14:33 | PDOC.HOSPP ---
- Subjective Encounter Date: 06/01/19 Encounter Time: 09:00 Subjective: pt up in bed appears ill. she is unable to talk but is able to communicate nonverbally. - Objective Vital Signs & Weight: Vital Signs (12 hours) Temp Pulse Resp Pulse Ox 06/01/19 13:33 108 H 22 H 06/01/19 11:09 98.2 F 06/01/19 08:00 98 06/01/19 07:08 99.6 F 06/01/19 03:52 98.4 F Weight Admit Weight 130 lb Weight 134 lb 9.6 oz Most Recent Monitor Data Heart Rate from ECG 109 NIBP 120/74 NIBP BP-Mean 89 Respiration from ECG 22 SpO2 100 I&O: 05/31/19 06/01/19 06/02/19 06:59 06:59 06:59 Intake Total 1177 3076 220 Output Total 365 700 Balance 812 2376 220 Result Diagrams: 06/01/19 03:46 06/01/19 03:46 Hospitalist ROS - Review of Systems Respiratory: denies: cough, dry, shortness of breath, hemoptysis, SOB with excertion, pleuritic pain, sputum, wheezing, other Cardiovascular: denies: chest pain, palpitations, orthopnea, paroxysmal noc. dyspnea, edema, light headedness, other Gastrointestinal: denies: nausea, vomiting, abdominal pain, diarrhea, constipation, melena, hematochezia, other - Medication Medications: Active Medications Generic Name Dose Route Start Last Admin Trade Name Freq PRN Reason Stop Dose Admin Acetaminophen 650 mg 05/29/19 02:44 05/29/19 07:51 Tylenol PO 650 mg Q4H PRN Administration Headache/Fever/Mild Pain (1-3) Albuterol/Ipratropium 3 ml 05/29/19 13:00 06/01/19 13:33 Duoneb NEB 3 ml [id number] RACHEL Administration Aspirin 81 mg 05/29/19 09:00 06/01/19 09:15 Ecotrin PO 81 mg DAILY RACHEL Administration Atorvastatin Calcium 80 mg 05/29/19 21:00 05/31/19 20:27 Lipitor PO 80 mg HS RACHEL Administration Enoxaparin Sodium 40 mg 05/29/19 09:00 06/01/19 09:16 Lovenox SC 40 mg 0900 RACHEL Administration Famotidine 20 mg 05/30/19 09:00 06/01/19 09:16 Pepcid SLOW IVP 20 mg 0900 RACHEL Administration Gabapentin 300 mg 05/29/19 09:00 06/01/19 09:15 Neurontin PO 300 mg TID RACHEL Administration Hydrocortisone Sodium Succinate 50 mg 05/29/19 12:00 06/01/19 12:55 Solu-Cortef IVP 06/05/19 12:01 50 mg Q6HR RACHEL Administration Dopamine HCl/Dextrose 250 mls @ 11.138 mls/hr 05/29/19 03:00 05/29/19 02:15 Dopamine 400 Mg/D5w 250 Ml IVPB 250 mls INF RACHEL Administration Protocol 5 MCG/KG/MIN Norepinephrine Bitartrate 250 mls @ 0 mls/hr 05/29/19 03:30 05/29/19 23:54 Levophed IVPB 250 mls INF RACHEL Administration Protocol Titrate Meropenem 1 gm/ Device 50 mls @ 200 mls/hr 05/29/19 14:00 06/01/19 06:14 IVPB 50 mls Q8HR RACHEL Administration Sodium Chloride 1,000 mls @ 50 mls/hr 05/29/19 14:45 06/01/19 05:01 Normal Saline 0.9% IV Not Given .Q20H RACHEL Morphine Sulfate 2 mg 05/29/19 15:51 05/31/19 09:54 Morphine SLOW IVP 2 mg Q4H PRN Administration Pain Sodium Chloride 10 ml 05/29/19 21:00 06/01/19 09:16 Flush - Normal Saline IVF 10 ml Q12HR RACHEL Administration - Exam Heart: negative: RRR, no murmur, no gallops, no rubs, normal peripheral pulses, irregular, diminshed peripheral pulses, murmur present, II/IV, III/IV Respiratory: rales, wheezes Gastrointestinal: negative: soft, non-tender, non-distended, normal bowel sounds , no palpable masses, no hepatomegaly, no splenomegaly, no bruit, no guarding, no rigidity, tender to palpation, distended, diminished bowl sounds, voluntary guarding Gastrointestinal - other findings: peg tube Hosp A/P (1) Acute respiratory failure Code(s): J96.00 - ACUTE RESPIRATORY FAILURE, UNSP W HYPOXIA OR HYPERCAPNIA Status: Acute (2) Lymphoma Status: Acute (3) Pseudomonas aeruginosa infection Code(s): A49.8 - OTHER BACTERIAL INFECTIONS OF UNSPECIFIED SITE Status: Acute (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 I did speak with her son about code status and he states that she wanted everything to be done. He also told me that her 32y primary care doc recommended against intubation but she wanted it. will start her on continue feeds at 10ml/hr and titrate it up to 30ml/hr. per family she has not been eating much prior to coming in to this hospital. she is deconditioned. will add some reglan since she had high residual. she will have vocal code argumentation. will decrease her solucortef. will restart her plavix/asa and statin. According to family she has 4 stents. She also has a AICD.
[2019-06-01] MEDS ORDERED: Hydrocortisone Sod Succ/PF 100 mg/2 ml Vial IVP SCH (14:45)
[2019-06-01] MEDS ORDERED: Metoclopramide HCl 10 MG/2 ML VIAL IVP SCH (14:45)
--- NOTE | 2019-06-01 14:48 | PRG ---
DATE OF SERVICE: 06/01/2019 SUBJECTIVE: The patient is still in the IMCU. She is awake, but has a very ineffective cough and air excursions are quite shallow. She has difficulty in taking deep breath. She does not have a headache. No abdominal pain. Still indwelling Rios catheter. The I's and O's have been positive for the past few days, chronically ill appearing, does not appear in acute distress. OBJECTIVE: VITAL SIGNS: She has been afebrile, T-max 99.6, BP 120/74, pulse 109, respirations 22, O2 saturation 100. LUNGS: Diminished breath sounds in the right side, moderate crackles in the left. The bases are poorly ventilated or aerated. HEART: S1 and S2, diminished heart sounds. Regular rate. ABDOMEN: Soft and not distended. Right groin catheter, the port is accessed. Bronchial washing with presumptive Pseudomonas. Blood cultures from [place] showed a fairly susceptible Pseudomonas strain with only resistance to aztreonam, and urine culture with no growth, repeat blood culture no growth at 48 hours. Repeat chest x-ray shows what appears to be better aeration of the right side compared with previous imaging study. ASSESSMENT AND DISCUSSION: Extranodal large cell B lymphoma, diagnosed in [place], on chemo with R-CHOP; pneumonia with aspiration due to Pseudomonas aeruginosa with bacteremia; swallowing dysfunction. We will continue with full interventions, after discussion with family, they decided that she continues to be a full code, so we will go ahead and discontinue ciprofloxacin and just leave her on the meropenem. Job ID: [id number]
--- NOTE | 2019-06-01 17:05 | PRG ---
DATE OF SERVICE: 06/01/2019 SUBJECTIVE: Vesna Madsen still looks very weak. She did nod that she was willing to try sitting up in the neuro chair. She stood briefly earlier today. OBJECTIVE: VITAL SIGNS: Blood pressure 120/74, heart rate is 109, respiratory rate 22. LUNGS: Remarkable for mild rhonchi bilaterally. HEART: Regular rhythm. ABDOMEN: Soft. She is tolerating her feeds. LABORATORY DATA: White count 16.1, hemoglobin 7.1, platelets 64,000. She will probably benefit from a transfusion soon given how weak she is. Sodium 146, potassium 3.9, chloride 119, bicarb 20, BUN 30, and creatinine 0.85. IMPRESSION: 1. Cachexia. 2. B-cell lymphoma. 3. Aspiration with pneumonia. 4. Status post percutaneous endoscopic gastrostomy for swallowing dysfunction. 5. Extreme weakness and deconditioning. Antibiotics have been adjusted by Dr. Vidales. Given her clinical appearance now, I cannot see how she would ever be a candidate for more chemotherapy. She appears 15 years older than her age at this point and is extremely weak, met with the son and answered all of his questions. Job ID: [id number]
[2019-06-01] MEDS: Metoclopramide HCl 10 MG/2 ML VIAL IVP SCH (22:28)
[2019-06-02] MEDS: Morphine 2 MG/ML SYRINGE SLOW IVP PRN (02:09)
[2019-06-02] MEDS: Hydrocortisone Sod Succ/PF 100 mg/2 ml Vial IVP SCH ×4 (03:41→23:09)
[2019-06-02] MEDS: Metoclopramide HCl 10 MG/2 ML VIAL IVP SCH ×2 (06:12→14:28)
[2019-06-02] MEDS: MEROPENEM 1 GM/50 ML 1 GM in Premix Bag 1 BAG IVPB SCH ×3 (06:12→21:49)
[2019-06-02 06:22] LABS: Hemoglobin 9.4 g/dL (12.0-16.0); Mean Corpuscular HGB CONC 33.5 g/dL (32.0-36.0); Mean Corpuscular Hemoglobin 30.7 pg (27.0-31.0); Mean Corpuscular Volume 91.5 fL (78.0-98.0); Mean Platelet Volume 11.6 fL (7.4-10.4); Platelet Count 97 thou/uL (130-400); Red Blood Cell (RBC) Count 3.05 mill/uL (4.20-5.40); White Blood Cell (WBC) Count 25.5 thou/uL (4.8-10.8)
[2019-06-02 06:41] LABS: Anion Gap 11 mmol/L (10-20); BUN (Urea Nitrogen) 32 mg/dL (9.8-20.1); Calc. Creatinine Clearance 57 mL/min (70-130); Calcium 9.3 mg/dL (7.8-10.44); Carbon Dioxide 21 mmol/L (23-31); Chloride 121 mmol/L (98-107); Estimated GFR-MDRD 69; Glucose 115 mg/dL (83-110); Potassium 4.5 mmol/L (3.5-5.1); Sodium 148 mmol/L (136-145)
[2019-06-02 07:22] LABS: Band 26 % (5-11); Lymphocytes 2 % (21-51); MDiff Complete? YES; Monocytes 5 % (0-10); Neutrophil 67 % (42-75); Nucleated RBC 1 % (0); Platelet Morphology Comment Appears Decreased; Polychromasia SLIGHT = 2-3 cells (100X) (0-2/hpf)
[2019-06-02] MEDS ORDERED: Dextrose 5% in Water 1,000 ML IV SCH (07:45)
[2019-06-02] MEDS ORDERED: Dextrose 5 %-0.45 % NaCl 1,000 ML IV SCH (07:45)
[2019-06-02] MEDS ORDERED: Lactated Ringer's 500 ML IV SCH (09:00)
[2019-06-02] MEDS ORDERED: Hydrocortisone Sod Succ/PF 100 mg/2 ml Vial IVP SCH (09:00)
--- NOTE | 2019-06-02 09:30 | RAD ---
XR Chest 1 View Portable HISTORY: Shortness of breath COMPARISON: Prior day study. FINDINGS: Heart size is enlarged. Internal defibrillator device and right-sided Mediport catheter is unchanged in position. Parenchymal lung changes are stable. No new process. More confluent opacity in the right upper lobe in the right lung apex is also unchanged. Continued follow-up to resolution i s recommended. IMPRESSION: Stable exam.
[2019-06-02] MEDS ORDERED: Vancomycin HCl 1 GM in Premix Bag 1 BAG IVPB SCH (10:00)
--- NOTE | 2019-06-02 10:02 | PRG ---
DATE OF SERVICE: 06/02/2019 SUBJECTIVE: This morning, she looks like she is having difficulty breathing. Appears to be slightly OBJECTIVE: VITAL SIGNS: Pulse 123, respiratory rate 29, saturations are 93% on 3 L, and blood pressure 125/90. CHEST: Bilateral rhonchi and crackles. CARDIAC: Normal S1 and S2. No gallops. ABDOMEN: No masses. LABORATORY DATA: Bronchial washing is growing Pseudomonas, sensitive to the present antibiotic. Her white count is elevated at 25,000, H and H 9 and 28 with a big left shift. X-ray shows bilateral pulmonary infiltrates. IMPRESSION: Acute on chronic respiratory failure, aspiration with bilateral bronchopneumonia, severe deconditioning, vocal cord paralysis, lymphoma. PLAN: She probably needs to be intubated. Continue PT, supportive care, and nutrition. . Job ID: [id number]
[2019-06-02] MEDS ORDERED: Propofol 1,000 MG/100 ML VIAL IV ONE (10:28)
[2019-06-02] MEDS ORDERED: Midazolam HCl 2 mg/2 ml Vial ONE (10:29)
[2019-06-02 10:46] LABS: INR-International Normal Ratio 1.1; Prothrombin Time 14.6 SEC (12.0-14.7)
[2019-06-02 10:47] LABS: PTT 30.4 SEC (22.9-36.1)
[2019-06-02] MEDS: Gabapentin 300 MG CAP PO SCH ×3 (10:57→19:54)
[2019-06-02] MEDS: Aspirin 81 mg Enteric Coated Tablet PO SCH (10:57)
[2019-06-02] MEDS: Atorvastatin Calcium 40 MG TAB PO SCH (10:57)
[2019-06-02] MEDS: Clopidogrel Bisulfate 75 MG TAB PO SCH (10:57)
[2019-06-02] MEDS: Famotidine/PF 20 mg/2ml Vial SLOW IVP SCH (11:01)
--- NOTE | 2019-06-02 11:03 | OP ---
DATE OF PROCEDURE: 06/02/2019 Upon arrival, she was having agonal respirations, the son and the daughter wanted everything to be done. She was transferred to the ICU, where it was felt she needed to be intubated. Bite block was placed and 7.5 endotracheal tube was placed over the bronchoscope. Posterior pharynx had large amounts of copious thick pus entering the vocal cord. In trachea, there was copious amounts of thick purulent pus arising, the entire trachea was occluded. Suctioned and lavaged until clear. Both lungs inspected initially. In the right lung, there was large amount of pus, which was suctioned and lavaged until completely clear. Thereafter, the entire right upper, right middle lobe visualized without any further endobronchial obstruction, blood, or pus. Left lung was inspected thereafter, she also had surprisingly less amount of pus in the basilar segments, also suctioned and lavaged until clear. Thereafter, the left upper and left lower lobe were visualized without any additional endobronchial obstruction or blood or pus. The patient has known left vocal cord paralysis. Washing was sent for Gram stain and C and S. I am going to add anti-Staph coverage, Zyvox, she is already on meropenem. Discussed with the family at length. Her overall prognosis is guarded. She is going to have continued issues with aspiration pneumonia, she has a PEG in place. Please note, this is a bronchoscopy and lavage, therapeutic bronchoscopy along with the intubation. Please note, the patient is connected to volume cycle respirator. Job ID: [id number]
[2019-06-02] MEDS: Fluconazole In NaCl,Iso-Osm 200 MG in Premix Bag 1 BAG IVPB SCH (12:09)
[2019-06-02] MEDS: Enoxaparin Sodium 40 MG/0.4 ML SYRINGE SC SCH (12:20)
--- NOTE | 2019-06-02 14:01 | PDOC.PALCO ---
Palliative Care Consult - Consult Details Requesting Physician: Dr Kate Reason for Consult: goals of care, advance directives assistance, family support Family Members Present: Uri son "Oneal", Patient two sisters - Pertinent HPI 79 year old female who initially presented to [facility] with shortness of breath cough, and fever. She has a know history of B-cell lymphoma and pronounced cardiovascular history, and had presented to the hospital for fever of unknown origin. After admission to the [facility] Mr Madsen declined and became hypotensive requiring dopamine. Secondary to need for higher level of care and multiple morbidities she was transferred to [facility]. Continued decline with respiratory compromise and required intubation this morning. - Pertinent PMH B - Cell lymphoma, CAD, HTN, HDL, Vtach requiring pacer with defibrillator, - Social History Smoking Status: Former smoker Smoking: quit greater than 1 year Alcohol Use: none Drug Use History: none - Medications MAR Reviewed: Yes - Allergies Allergies/Adverse Reactions: Allergies Allergy/AdvReac Type Severity Reaction Status Date / Time No Known Allergies Allergy Unverified 05/29/19 04:59 - Subjective Mechanical intubation with sedation. - ROS Non Response: due to endotracheal tube, due to mental status - Objective Vital Signs: Vital Signs - Most Recent Temp Pulse Resp BP Pulse Ox 99.9 F H 105 H 19 89/61 L 91 L 06/02/19 10:15 06/02/19 10:10 06/02/19 12:00 06/02/19 10:10 06/02/19 09:03 Palliative Performance Scale: 20 - Advance Directives Medical Power of Tool Crib Clerk: Son was listed at [facility] - Physical Exam Constitutional: ill appearing HEENT: moist MMs Deviation from normal: Mechanical ventilation, mildly adventicious Cardiovascular: irregular Genitourinary: bah catheter Musculoskeletal: no cyanosis, no clubbing, muscle wasting Deviation from normal: sedated Deviation from normal: Pallor Deviation from normal: sedated - Problem List (1) Palliative care encounter Code(s): Z51.5 - ENCOUNTER FOR PALLIATIVE CARE Current Visit: Yes Status: Acute (2) Physical deconditioning Code(s): R53.81 - OTHER MALAISE Current Visit: Yes Status: Acute (3) Acute respiratory failure Code(s): J96.00 - ACUTE RESPIRATORY FAILURE, UNSP W HYPOXIA OR HYPERCAPNIA Current Visit: Yes Status: Acute (4) Bacteremia Code(s): R78.81 - BACTEREMIA Current Visit: Yes Status: Acute (5) CAD (coronary artery disease) Code(s): I25.10 - ATHSCL HEART DISEASE OF [place] CORONARY ARTERY W/O ANG PCTRS Current Visit: Yes Status: Acute (6) Dysphagia Code(s): R13.10 - DYSPHAGIA, UNSPECIFIED Current Visit: Yes Status: Acute (7) Lymphoma Current Visit: Yes Status: Acute (8) Pneumonia Code(s): J18.9 - PNEUMONIA, UNSPECIFIED ORGANISM Current Visit: Yes Status: Acute (9) Protein-calorie malnutrition, moderate Code(s): E44.0 - MODERATE PROTEIN-CALORIE MALNUTRITION Current Visit: Yes Status: Acute - Plan/Recommendations Plan: Initial visit with family. Introduced Palliative Care. Family gave short life review of patient, states that her favorite thing was "to get her purse and go" . She loved to travel and went to [place] with her sisters several times. Enjoyed her grandchildren and has great grandchildren. Family relayed "she always wanted everything done" however her son was tearful, and is wanting to have a family meeting to discuss no further resuscitation measures. He states his sister (patient daughter) is wanting all aggressive measures, and they disagree with what to do. Reminded family it is not what "they want" but that they are her voice, and to think about what Mrs Madsen would desire. Family asked questions in relation to disease processes and meaningful recovery. Will follow up and facilitate a family meeting if the family desires. Dr Gomez provided insight and history of patient prior to consult. [50] minutes spent on this encounter with >50% of the time in counseling and coordination of care. Thank you for this very appropriate consult.
--- NOTE | 2019-06-02 16:43 | EKG ---
Test Reason : Blood Pressure : / mmHG Vent. Rate : 124 BPM Atrial Rate : 124 BPM P-R Int : 144 ms QRS Dur : 084 ms QT Int : 300 ms P-R-T Axes : 064 047 225 degrees QTc Int : 431 ms Sinus tachycardia with Premature supraventricular complexes and Premature ventricular complexes or Low voltage QRS Cannot rule out Anterior infarct , age undetermined Abnormal ECG Confirmed by DARREL NELSON ([id number]) on 06/02/2019 4:42:45 PM Referred By: JAVIER Confirmed By:DARREL NELSON
[2019-06-02] MEDS ORDERED: DISCONTINUE PREVIOUS NARCOTIC PAIN MEDICATIONS AND BENZODIAZEPINES FS SCH (18:08)
[2019-06-02] MEDS ORDERED: Fentanyl BOLUS 250 ML IVPB PRN (18:08)
[2019-06-02] MEDS ORDERED: Lorazepam 2 MG/ML VIAL SLOW IVP PRN (18:08)
[2019-06-02] MEDS ORDERED: fentaNYL Citrate/PF 2,000 MCG in Sodium Chloride 0.9% 60 ML IV SCH (18:08)
[2019-06-02] MEDS ORDERED: Propofol BOLUS 1,000 MG/100 ML VIAL IV PRN (18:08)
--- NOTE | 2019-06-02 18:58 | PRG ---
DATE OF SERVICE: 06/02/2019 SUBJECTIVE: Ms. Madsen had to be intubated. She had a lot of aspiration in the right and left lungs, but more on the right side, with a thick plug of mucus obstructing her large airways, mostly on the right side. 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 OBJECTIVE: VITAL SIGNS: The patient's T-max 99.9, blood pressure 117/78, pulse 107, respirations 24, O2 saturations 100%. GENERAL: She is sedated. HEENT: Pupils are constricted. Orotracheal intubation. LUNGS: With coarse breath sounds, particularly in the right side. HEART: S1 and S2. Regular rate. ABDOMEN: Soft. Not distended. Port is accessed. She has a right groin catheter. LABORATORY DATA: White cell count 25,000, hemoglobin 9.4, platelets 97,000, 26% bands. Creatinine 0.81. Microbiology with repeat cultures from the bronchial washing from today pending. She is currently on fluconazole, linezolid, and meropenem. 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 Repeat bronchoscopy has been carried out, and she is going to have a procedure done to try to improve the vocal cord function, I believe tomorrow. The preference of the family is to continue the full range of interventions needed for possible reversal of this process. Job ID: [id number]
[2019-06-02] MEDS: Linezolid 600 MG in Premix Bag 1 BAG IVPB SCH (19:54)
[2019-06-02] MEDS: Sodium Chloride 0.9% 1,000 ML IV SCH (22:44)
[2019-06-03] MEDS: Sodium Chloride 0.9% 1,000 ML IV SCH ×2 (01:26→12:05)
[2019-06-03] MEDS: Propofol 1,000 MG/100 ML VIAL IV PRN ×2 (01:31→18:10)
[2019-06-03] MEDS: Hydrocortisone Sod Succ/PF 100 mg/2 ml Vial IVP SCH ×4 (05:14→23:29)
[2019-06-03] MEDS: MEROPENEM 1 GM/50 ML 1 GM in Premix Bag 1 BAG IVPB SCH ×3 (05:14→22:30)
[2019-06-03 06:20] LABS: Anion Gap 11 mmol/L (10-20); BUN (Urea Nitrogen) 33 mg/dL (9.8-20.1); Calc. Creatinine Clearance 57 mL/min (70-130); Calcium 8.8 mg/dL (7.8-10.44); Carbon Dioxide 22 mmol/L (23-31); Chloride 119 mmol/L (98-107); Estimated GFR-MDRD 69; Glucose 137 mg/dL (83-110); Potassium 4.5 mmol/L (3.5-5.1); Sodium 147 mmol/L (136-145)
[2019-06-03 06:34] LABS: Hemoglobin 8.2 g/dL (12.0-16.0); Mean Corpuscular HGB CONC 33.5 g/dL (32.0-36.0); Mean Corpuscular Volume 92.7 fL (78.0-98.0); Mean Platelet Volume 12.1 fL (7.4-10.4); Platelet Count 102 thou/uL (130-400); RBC Distribution Width 15.7 % (11.5-14.5); Red Blood Cell (RBC) Count 2.63 mill/uL (4.20-5.40); White Blood Cell (WBC) Count 12.2 thou/uL (4.8-10.8)
[2019-06-03 07:14] LABS: Actual Bicarbonate (HCO3a) 19.6 mEq/L (22-28); Base Excess (BEa) -5.3 mEq/L (-2.0 to +3.0); CO2 Tension 35.6 mmHg (35.0-45.0); Calcium, Ionized 1.31 mmol/L (1.12-1.30); Carboxyhemoglobin (COHb) 0.4 gm% (0.0-3.0); Hemoglobin (Hb) 8.3 g/dL (12.0-16.0); O2 Tension (PaO2) 131.3 mmHg (> 70.0); Potassium - ABG Lab 4.51 mmol/L (3.70-5.30); pH, Arterial 7.36 (7.35-7.45)
[2019-06-03 07:23] LABS: Puncture Site L.R.
[2019-06-03 07:37] LABS: Anisocytosis SLIGHT = 6-15 cells (100X) (0-5/hpf); Band 20 % (5-11); Lymphocytes 2 % (21-51); MDiff Complete? YES; Metamyelocyte 1 % (0-0); Monocytes 3 % (0-10); Myelocyte 1 % (0-0); Neutrophil 73 % (42-75); Platelet Morphology Comment Appears Decreased; Polychromasia MODERATE = 3-4 cells (100X) (0-2/hpf)
--- NOTE | 2019-06-03 08:48 | PRG ---
DATE OF SERVICE: 06/03/2019 SUBJECTIVE: This morning, she is awake, responsive on the vent, lightly sedated. OBJECTIVE: VITAL SIGNS: Temperature 98, sats 90%, blood pressure respirations 18. GENERAL: Opens her eyes. She is weak. CHEST: Decreased breath sounds. No wheezing or crackles. CARDIAC: Normal S1 and S2. No gallops. ABDOMEN: No masses. ASSESSMENT: 1. Aspiration pneumonia. So far, cultures negative except for Pseudomonas. 2. Lymphoma, status post chemo with pancytopenia, improved. 3. Respiratory failure. 4. Cord paralysis. 5. Severe deconditioning. PLAN: Continue slow hydration. PT, supportive care. ENT to address the vocal cord paralysis today. Instantly, platelet count is improved to 102. White count is 12,000, H and H 8 and 24. Lytes are normal. We will follow. Hopefully, we will start weaning in the next few days. One-half hour of critical care. Job ID: [id number]
[2019-06-03] MEDS: Atorvastatin Calcium 40 MG TAB PO SCH (09:00)
[2019-06-03] MEDS: Clopidogrel Bisulfate 75 MG TAB PO SCH (09:00)
[2019-06-03] MEDS: Aspirin 81 mg Enteric Coated Tablet PO SCH (09:00)
[2019-06-03] MEDS: Gabapentin 300 MG CAP PO SCH ×3 (09:00→20:31)
[2019-06-03] MEDS: Famotidine/PF 20 mg/2ml Vial SLOW IVP SCH (09:43)
[2019-06-03] MEDS: Linezolid 600 MG in Premix Bag 1 BAG IVPB SCH ×2 (09:45→20:31)
--- NOTE | 2019-06-03 10:28 | RAD ---
CHEST 1 VIEW: Date: 06/03/2019 HISTORY: Respiratory insufficiency, ventilated patient. FINDINGS: Endotracheal tube has been placed with the tip approximately 1.0 cm above the level of the belle. Ab normal opacity in the medial aspect of the right upper lobe, but stable from prior study. Patchy pare nchymal changes in both lung bases with some pleural effusions. Left ICD. Right subclavian catheter a nd injection port. IMPRESSION: Overall stable findings, other than placement of an endotracheal tube with the tip about 1.0 cm above the level of the belle. Continue short-term follow-up. CODE T. POS: [facility]
[2019-06-03] MEDS: Fluconazole In NaCl,Iso-Osm 200 MG in Premix Bag 1 BAG IVPB SCH (10:37)
--- NOTE | 2019-06-03 14:21 | PDOC.HOSPP ---
- Subjective Encounter Date: 06/02/19 Encounter Time: 09:45 Subjective: pt up in bed appears ill - Objective Vital Signs & Weight: Vital Signs (12 hours) Temp Pulse Pulse Pulse Resp BP BP 06/03/19 13:38 92 21 H 115/70 06/03/19 12:00 19 06/03/19 10:49 98 102 H 114/75 06/03/19 10:48 98 116/75 06/03/19 10:00 18 06/03/19 08:00 98.2 F 06/03/19 07:37 17 06/03/19 06:36 90 108/69 06/03/19 06:35 92 17 06/03/19 06:00 17 06/03/19 04:00 18 06/03/19 03:00 98.6 F 06/03/19 02:36 94 88/57 L BP Pulse Ox Pulse Ox Pulse Ox 06/03/19 13:38 98 06/03/19 12:00 06/03/19 10:49 115/76 98 98 06/03/19 10:48 06/03/19 10:00 06/03/19 08:00 06/03/19 07:37 98 06/03/19 06:36 06/03/19 06:35 99 06/03/19 06:00 06/03/19 04:00 06/03/19 03:00 06/03/19 02:36 Weight Admit Weight 130 lb Weight 136 lb 14.513 oz Most Recent Monitor Data Heart Rate from ECG 91 NIBP 115/70 NIBP BP-Mean 85 Respiration from ECG 19 SpO2 98 I&O: 06/02/19 06/03/19 06/04/19 06:59 06:59 06:59 Intake Total 3436 2893.4 Output Total 475 470 125 Balance 2961 2423.4 -125 Result Diagrams: 06/03/19 05:48 06/03/19 05:48 Hospitalist ROS - Review of Systems Other: unable to obtain - Medication Medications: Active Medications Generic Name Dose Route Start Last Admin Trade Name Freq PRN Reason Stop Dose Admin Acetaminophen 650 mg 05/29/19 02:44 05/29/19 07:51 Tylenol PO 650 mg Q4H PRN Administration Headache/Fever/Mild Pain (1-3) Albuterol/Ipratropium 3 ml 05/29/19 13:00 06/03/19 13:38 Duoneb NEB 3 ml [id number] RACHEL Administration Aspirin 81 mg 06/02/19 09:00 06/02/19 10:57 Ecotrin PO Not Given DAILY RACHEL Atorvastatin Calcium 80 mg 06/02/19 09:00 06/02/19 10:57 Lipitor PO Not Given DAILY RACHEL Clopidogrel Bisulfate 75 mg 06/02/19 09:00 06/02/19 10:57 Plavix PO Not Given DAILY RACHEL Enoxaparin Sodium 40 mg 05/29/19 09:00 06/02/19 12:20 Lovenox SC 40 mg 0900 RACHEL Administration Famotidine 20 mg 05/30/19 09:00 06/03/19 09:43 Pepcid SLOW IVP 20 mg 0900 RACHEL Administration Gabapentin 300 mg 06/01/19 15:00 06/02/19 19:54 Neurontin PO 300 mg TID RACHEL Administration Hydrocortisone Sodium Succinate 50 mg 06/02/19 12:00 06/03/19 05:14 Solu-Cortef IVP 06/09/19 12:01 50 mg Q6HR RACHEL Administration Dopamine HCl/Dextrose 250 mls @ 11.138 mls/hr 05/29/19 03:00 05/29/19 02:15 Dopamine 400 Mg/D5w 250 Ml IVPB 250 mls INF RACHEL Administration Protocol 5 MCG/KG/MIN Meropenem 1 gm/ Device 50 mls @ 200 mls/hr 05/29/19 14:00 06/03/19 05:14 IVPB 50 mls Q8HR RACHEL Administration Fluconazole/Sodium Chloride 100 mls @ 100 mls/hr 06/02/19 11:00 06/03/19 10: 37 200 mg/ Device IVPB 100 mls Q24HR RACHEL Administration Linezolid 600 mg/ Device 300 mls @ 150 mls/hr 06/02/19 21:00 06/03/19 09:45 IVPB 300 mls Q12HR RACHEL Administration Sodium Chloride 1,000 mls @ 75 mls/hr 06/02/19 22:45 06/03/19 01:26 Normal Saline 0.9% IV 1,000 mls .[id number] RACHEL Administration Propofol 1,000 mg 06/02/19 18:08 06/03/19 01:31 Diprivan IV 07/02/19 18:08 1,000 mg INF PRN Administration TO ACHIEVE GOAL RASS Protocol Sodium Chloride 10 ml 05/29/19 21:00 06/02/19 19:54 Flush - Normal Saline IVF 10 ml Q12HR RACHEL Administration - Exam Neck: negative: supple, symmetric, no JVD, no thyromegaly, no lymphadenopathy, no carotid bruit, JVD Heart: negative: RRR, no murmur, no gallops, no rubs, normal peripheral pulses, irregular, diminshed peripheral pulses, murmur present, II/IV, III/IV Respiratory: rhonchi Gastrointestinal: negative: soft, non-tender, non-distended, normal bowel sounds , no palpable masses, no hepatomegaly, no splenomegaly, no bruit, no guarding, no rigidity, tender to palpation, distended, diminished bowl sounds, voluntary guarding Hosp A/P (1) Acute respiratory failure Code(s): J96.00 - ACUTE RESPIRATORY FAILURE, UNSP W HYPOXIA OR HYPERCAPNIA Status: Acute (2) Lymphoma Status: Acute (3) Pseudomonas aeruginosa infection Code(s): A49.8 - OTHER BACTERIAL INFECTIONS OF UNSPECIFIED SITE Status: Acute (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 I did speak with her son about code status and he states that she wanted everything to be done. He also told me that her 32y primary care doc recommended against intubation but she wanted it. will start her on continue feeds at 10ml/hr and titrate it up to 30ml/hr. per family she has not been eating much prior to coming in to this hospital. she is deconditioned. will add some reglan since she had high residual. she will have vocal code argumentation. will decrease her solucortef. will restart her plavix/asa and statin. According to family she has 4 stents. She also has a AICD. 06/03 pt appear ill will get a stat abg she most likley will need to be intubated. she is unable to hold her secretions. Son at bedside and is ok with this. will also broaden her abx given her elevated wbc. will give her some fluid since she is tachycardia. I got a call for her oncologist Dr campos who states that she recently got a cell count stimulating shot and most likley her elevated wbc is due to that. also she is very optimistic about her cancer tx and states it is very treatable if her current situation improves.
--- NOTE | 2019-06-03 14:27 | PDOC.HOSPP ---
- Subjective Encounter Date: 06/03/19 Encounter Time: 10:15 Subjective: pt up in bed intubated, family at bedside. - Objective Vital Signs & Weight: Vital Signs (12 hours) Temp Pulse Pulse Pulse Resp BP BP 06/03/19 13:38 92 21 H 115/70 06/03/19 12:00 19 06/03/19 10:49 98 102 H 114/75 06/03/19 10:48 98 116/75 06/03/19 10:00 18 06/03/19 08:00 98.2 F 06/03/19 07:37 17 06/03/19 06:36 90 108/69 06/03/19 06:35 92 17 06/03/19 06:00 17 06/03/19 04:00 18 06/03/19 03:00 98.6 F 06/03/19 02:36 94 88/57 L BP Pulse Ox Pulse Ox Pulse Ox 06/03/19 13:38 98 06/03/19 12:00 06/03/19 10:49 115/76 98 98 06/03/19 10:48 06/03/19 10:00 06/03/19 08:00 06/03/19 07:37 98 06/03/19 06:36 06/03/19 06:35 99 06/03/19 06:00 06/03/19 04:00 06/03/19 03:00 06/03/19 02:36 Weight Admit Weight 130 lb Weight 136 lb 14.513 oz Most Recent Monitor Data Heart Rate from ECG 91 NIBP 115/70 NIBP BP-Mean 85 Respiration from ECG 19 SpO2 98 I&O: 06/02/19 06/03/19 06/04/19 06:59 06:59 06:59 Intake Total 3436 2893.4 Output Total 475 470 125 Balance 2961 2423.4 -125 Result Diagrams: 06/03/19 05:48 06/03/19 05:48 Hospitalist ROS - Review of Systems Other: pt intubated - Medication Medications: Active Medications Generic Name Dose Route Start Last Admin Trade Name Freq PRN Reason Stop Dose Admin Acetaminophen 650 mg 05/29/19 02:44 05/29/19 07:51 Tylenol PO 650 mg Q4H PRN Administration Headache/Fever/Mild Pain (1-3) Albuterol/Ipratropium 3 ml 05/29/19 13:00 06/03/19 13:38 Duoneb NEB 3 ml [id number] RACHEL Administration Aspirin 81 mg 06/02/19 09:00 06/02/19 10:57 Ecotrin PO Not Given DAILY RACHEL Atorvastatin Calcium 80 mg 06/02/19 09:00 06/02/19 10:57 Lipitor PO Not Given DAILY RACHEL Clopidogrel Bisulfate 75 mg 06/02/19 09:00 06/02/19 10:57 Plavix PO Not Given DAILY RACHEL Enoxaparin Sodium 40 mg 05/29/19 09:00 06/02/19 12:20 Lovenox SC 40 mg 0900 RACHEL Administration Famotidine 20 mg 05/30/19 09:00 06/03/19 09:43 Pepcid SLOW IVP 20 mg 0900 RACHEL Administration Gabapentin 300 mg 06/01/19 15:00 06/02/19 19:54 Neurontin PO 300 mg TID RACHEL Administration Hydrocortisone Sodium Succinate 50 mg 06/02/19 12:00 06/03/19 05:14 Solu-Cortef IVP 06/09/19 12:01 50 mg Q6HR RACHEL Administration Dopamine HCl/Dextrose 250 mls @ 11.138 mls/hr 05/29/19 03:00 05/29/19 02:15 Dopamine 400 Mg/D5w 250 Ml IVPB 250 mls INF RACHEL Administration Protocol 5 MCG/KG/MIN Meropenem 1 gm/ Device 50 mls @ 200 mls/hr 05/29/19 14:00 06/03/19 05:14 IVPB 50 mls Q8HR RACHEL Administration Fluconazole/Sodium Chloride 100 mls @ 100 mls/hr 06/02/19 11:00 06/03/19 10: 37 200 mg/ Device IVPB 100 mls Q24HR RACHEL Administration Linezolid 600 mg/ Device 300 mls @ 150 mls/hr 06/02/19 21:00 06/03/19 09:45 IVPB 300 mls Q12HR RACHEL Administration Sodium Chloride 1,000 mls @ 75 mls/hr 06/02/19 22:45 06/03/19 01:26 Normal Saline 0.9% IV 1,000 mls .[id number] RACHEL Administration Propofol 1,000 mg 06/02/19 18:08 06/03/19 01:31 Diprivan IV 07/02/19 18:08 1,000 mg INF PRN Administration TO ACHIEVE GOAL RASS Protocol Sodium Chloride 10 ml 05/29/19 21:00 06/02/19 19:54 Flush - Normal Saline IVF 10 ml Q12HR RACHEL Administration - Exam Heart: negative: RRR, no murmur, no gallops, no rubs, normal peripheral pulses, irregular, diminshed peripheral pulses, murmur present, II/IV, III/IV Respiratory: rhonchi. negative: CTAB, no wheezes, no rales, no ronchi, normal chest expansion, no tachypnea, normal percussion, rales, tachypneic, wheezes Gastrointestinal: negative: soft, non-tender, non-distended, normal bowel sounds , no palpable masses, no hepatomegaly, no splenomegaly, no bruit, no guarding, no rigidity, tender to palpation, distended, diminished bowl sounds, voluntary guarding Extremities: negative: no cyanosis, no clubbing, no edema, 1+ LE edema, 2+ LE edema, clubbing Hosp A/P (1) Acute respiratory failure Code(s): J96.00 - ACUTE RESPIRATORY FAILURE, UNSP W HYPOXIA OR HYPERCAPNIA Status: Acute (2) Lymphoma Status: Acute (3) Pseudomonas aeruginosa infection Code(s): A49.8 - OTHER BACTERIAL INFECTIONS OF UNSPECIFIED SITE Status: Acute (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 - OTHER CONGENITAL MALFORMATIONS OF [place] Status: Acute (5) Pneumonia Code(s): J18.9 - PNEUMONIA, UNSPECIFIED ORGANISM Status: Acute (6) Protein-calorie malnutrition, moderate Code(s): E44.0 - MODERATE PROTEIN-CALORIE MALNUTRITION Status: Acute (7) CAD (coronary artery disease) Code(s): I25.10 - ATHSCL HEART DISEASE OF [place] CORONARY ARTERY W/O ANG PCTRS Status: Acute (8) Hypernatremia Code(s): E87.0 - HYPEROSMOLALITY AND HYPERNATREMIA Status: Acute (9) Leukocytosis Code(s): D72.829 - ELEVATED WHITE BLOOD CELL COUNT, UNSPECIFIED Status: Acute - Plan will continue current abx, pt's overall prognosis is poor. I did speak with her son about code status and he states that she wanted everything to be done. He also told me that her 32y primary care doc recommended against intubation but she wanted it. will start her on continue feeds at 10ml/hr and titrate it up to 30ml/hr. per family she has not been eating much prior to coming in to this hospital. she is deconditioned. will add some reglan since she had high residual. she will have vocal code argumentation. will decrease her solucortef. will restart her plavix/asa and statin. According to family she has 4 stents. She also has a AICD. 06/03 pt appear ill will get a stat abg she most likley will need to be intubated. she is unable to hold her secretions. Son at bedside and is ok with this. will also broaden her abx given her elevated wbc. will give her some fluid since she is tachycardia. I got a call for her oncologist Dr campos who states that she recently got a cell count stimulating shot and most likley her elevated wbc is due to that. also she is very optimistic about her cancer tx and states it is very treatable if her current situation improves. 06/04 pt still intubated s/p bronscopy done yesterday which indicated significant amounts of thick secretions ( pus) around the trachea. will continue current abx for now.
[2019-06-03] MEDS: Enoxaparin Sodium 40 MG/0.4 ML SYRINGE SC SCH (15:50)
[2019-06-04 04:30] LABS: Anion Gap 14 mmol/L (10-20); BUN (Urea Nitrogen) 34 mg/dL (9.8-20.1); Calc. Creatinine Clearance 51 mL/min (70-130); Carbon Dioxide 21 mmol/L (23-31); Chloride 117 mmol/L (98-107); Estimated GFR-MDRD 61; Glucose 165 mg/dL (83-110); Potassium 4.6 mmol/L (3.5-5.1); Sodium 147 mmol/L (136-145)
[2019-06-04 04:59] LABS: Band 11 % (5-11); Hemoglobin 8.9 g/dL (12.0-16.0); Large Platelets SLIGHT; MDiff Complete? YES; Mean Corpuscular HGB CONC 33.3 g/dL (32.0-36.0); Mean Corpuscular Hemoglobin 31.1 pg (27.0-31.0); Mean Corpuscular Volume 93.4 fL (78.0-98.0); Mean Platelet Volume 12.8 fL (7.4-10.4); Monocytes 2 % (0-10); Myelocyte 1 % (0-0); Neutrophil 86 % (42-75); Platelet Count 175 thou/uL (130-400); Platelet Morphology Comment Appears Adequate; Polychromasia SLIGHT = 2-3 cells (100X) (0-2/hpf); RBC Distribution Width 15.3 % (11.5-14.5); Red Blood Cell (RBC) Count 2.87 mill/uL (4.20-5.40); White Blood Cell (WBC) Count 17.7 thou/uL (4.8-10.8)
[2019-06-04] MEDS: MEROPENEM 1 GM/50 ML 1 GM in Premix Bag 1 BAG IVPB SCH ×3 (05:48→21:30)
[2019-06-04] MEDS: Sodium Chloride 0.9% 1,000 ML IV SCH ×2 (05:48→17:08)
[2019-06-04] MEDS: Hydrocortisone Sod Succ/PF 100 mg/2 ml Vial IVP SCH (05:49)
[2019-06-04 08:08] LABS: Actual Bicarbonate (HCO3a) 19.4 mEq/L (22-28); Base Excess (BEa) -4.1 mEq/L (-2.0 to +3.0); CO2 Tension 29.7 mmHg (35.0-45.0); Carboxyhemoglobin (COHb) 0.5 gm% (0.0-3.0); Hemoglobin (Hb) 9.3 g/dL (12.0-16.0); O2 Tension (PaO2) 108.5 mmHg (> 70.0); Potassium - ABG Lab 4.41 mmol/L (3.70-5.30); pH, Arterial 7.43 (7.35-7.45)
[2019-06-04 08:18] LABS: ALV-art Gradient 139.575 (0-20); Puncture Site L.R.
--- NOTE | 2019-06-04 08:47 | RAD ---
CHEST 1 VIEW: HISTORY: Ventilated patient. COMPARISON: Radiograph of prior day. FINDINGS: The patient is intubated with endotracheal tube tip above the belle approximately 1.5 cm. AICD/pace r is similar. There is a port catheter in place with the tip obscured with the cardiac leads likely at the inferior SVC. Small to moderate effusions. Moderate bibasilar airspace opacities. No pneumothorax. No acute osseous abnormality. IMPRESSION: Similar appearance to the chest. POS: CET
--- NOTE | 2019-06-04 08:52 | PRG ---
DATE OF SERVICE: SUBJECTIVE: This morning, she is sedated on Diprivan. OBJECTIVE: VITAL SIGNS: Pulse 103, blood pressure 124/81, respiratory rate 23, sats are 98%, maximum temperature 98. CHEST: Bilateral rhonchi and crackles. CARDIAC: Normal S1 and S2. No gallops. ABDOMEN: No masses. LABORATORY DATA: White count 17,000. H and H , platelet count has improved to 175, slight left shift. Lytes are normal. ASSESSMENT: 1. Respiratory failure. 2. Severe deconditioning. 3. Aspiration. 4. Vocal cord paralysis. 5. Lymphoma. PLAN: Hold sedation and continue aggressive PT. At this stage, that she gets stronger. Then, consider weaning and extubation. Clearly, she is severely deconditioned. Chief continue antibiotics, neb treatments, and steroids. One-half hour of critical care time. Job ID: [id number]
[2019-06-04] MEDS: Linezolid 600 MG in Premix Bag 1 BAG IVPB SCH (09:13)
[2019-06-04] MEDS: Enoxaparin Sodium 40 MG/0.4 ML SYRINGE SC SCH (09:13)
[2019-06-04] MEDS: methylPREDNISolone Sod Succ 40 MG VIAL IVP SCH (09:14)
[2019-06-04] MEDS: Gabapentin 300 MG CAP PO SCH ×3 (09:14→20:07)
[2019-06-04] MEDS: Aspirin 81 mg Enteric Coated Tablet PO SCH (09:14)
[2019-06-04] MEDS: Famotidine/PF 20 mg/2ml Vial SLOW IVP SCH (09:14)
[2019-06-04] MEDS: Clopidogrel Bisulfate 75 MG TAB PO SCH (09:14)
[2019-06-04] MEDS: Fluconazole In NaCl,Iso-Osm 200 MG in Premix Bag 1 BAG IVPB SCH (12:00)
--- NOTE | 2019-06-04 14:39 | PDOC.HOSPP ---
- Subjective Encounter Date: 06/04/19 Encounter Time: 10:15 Subjective: pt intubated and moving all her ext. - Objective Vital Signs & Weight: Vital Signs (12 hours) Temp Pulse Resp BP Pulse Ox 06/04/19 13:21 109 H 133/91 H 06/04/19 13:20 109 H 22 H 98 06/04/19 12:00 23 H 06/04/19 11:01 119 H 125/89 06/04/19 10:00 23 H 06/04/19 08:29 111 H 130/82 06/04/19 08:00 99.5 F 16 98 06/04/19 07:26 103 H 124/81 06/04/19 07:25 103 H 23 H 98 06/04/19 06:00 22 H 06/04/19 04:00 98.7 F 18 Weight Admit Weight 130 lb Weight 136 lb 10.986 oz Most Recent Monitor Data Heart Rate from ECG 109 NIBP 127/82 NIBP BP-Mean 97 Respiration from ECG 21 SpO2 98 I&O: 06/03/19 06/04/19 06/05/19 06:59 06:59 06:59 Intake Total 2893.4 2973.3 300 Output Total 470 465 105 Balance 2423.4 2508.3 195 Result Diagrams: 06/04/19 03:46 06/04/19 03:30 Hospitalist ROS - Review of Systems Other: pt intubated - Medication Medications: Active Medications Generic Name Dose Route Start Last Admin Trade Name Freq PRN Reason Stop Dose Admin Acetaminophen 650 mg 05/29/19 02:44 05/29/19 07:51 Tylenol PO 650 mg Q4H PRN Administration Headache/Fever/Mild Pain (1-3) Albuterol/Ipratropium 3 ml 05/29/19 13:00 06/04/19 13:20 Duoneb NEB 3 ml [id number] RACHEL Administration Aspirin 81 mg 06/02/19 09:00 06/04/19 09:14 Ecotrin PO 81 mg DAILY RACHEL Administration Clopidogrel Bisulfate 75 mg 06/02/19 09:00 06/04/19 09:14 Plavix PO 75 mg DAILY RACHEL Administration Enoxaparin Sodium 40 mg 05/29/19 09:00 06/04/19 09:13 Lovenox SC 40 mg 09 RACHEL Administration Famotidine 20 mg 05/30/19 09:00 06/04/19 09:14 Pepcid SLOW IVP 20 mg 0900 RACHEL Administration Gabapentin 300 mg 06/01/19 15:00 06/04/19 09:14 Neurontin PO 300 mg TID RACHEL Administration Dopamine HCl/Dextrose 250 mls @ 11.138 mls/hr 05/29/19 03:00 05/29/19 02:15 Dopamine 400 Mg/D5w 250 Ml IVPB 250 mls INF RACHEL Administration Protocol 5 MCG/KG/MIN Meropenem 1 gm/ Device 50 mls @ 200 mls/hr 05/29/19 14:00 06/04/19 05:48 IVPB 50 mls Q8HR RACHEL Administration Fluconazole/Sodium Chloride 100 mls @ 100 mls/hr 06/02/19 11:00 06/04/19 12: 00 200 mg/ Device IVPB 100 mls Q24HR RACHEL Administration Linezolid 600 mg/ Device 300 mls @ 150 mls/hr 06/02/19 21:00 06/04/19 09:13 IVPB 300 mls Q12HR RACHEL Administration Sodium Chloride 1,000 mls @ 75 mls/hr 06/02/19 22:45 06/04/19 05:48 Normal Saline 0.9% IV 1,000 mls .[id number] RACHEL Administration Methylprednisolone Sodium Succinate 40 mg 06/04/19 09:00 06/04/19 09:14 Solu-Medrol IVP 40 mg DAILY RACHEL Administration Propofol 1,000 mg 06/02/19 18:08 06/03/19 18:10 Diprivan IV 07/02/19 18:08 1,000 mg INF PRN Administration TO ACHIEVE GOAL RASS Protocol Sodium Chloride 10 ml 05/29/19 21:00 06/04/19 09:14 Flush - Normal Saline IVF 10 ml Q12HR RACHEL Administration - Exam Heart: negative: RRR, no murmur, no gallops, no rubs, normal peripheral pulses, irregular, diminshed peripheral pulses, murmur present, II/IV, III/IV Respiratory: rhonchi. negative: CTAB, no wheezes, no rales, no ronchi, normal chest expansion, no tachypnea, normal percussion, rales, tachypneic, wheezes Gastrointestinal: negative: soft, non-tender, non-distended, normal bowel sounds , no palpable masses, no hepatomegaly, no splenomegaly, no bruit, no guarding, no rigidity, tender to palpation, distended, diminished bowl sounds, voluntary guarding Extremities - other findings: has significant edema all over Hosp A/P (1) Acute respiratory failure Code(s): J96.00 - ACUTE RESPIRATORY FAILURE, UNSP W HYPOXIA OR HYPERCAPNIA Status: Acute (2) Lymphoma Status: Acute (3) Pseudomonas aeruginosa infection Code(s): A49.8 - OTHER BACTERIAL INFECTIONS OF UNSPECIFIED SITE Status: Acute (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 - OTHER CONGENITAL MALFORMATIONS OF [place] Status: Acute (5) Pneumonia Code(s): J18.9 - PNEUMONIA, UNSPECIFIED ORGANISM Status: Acute (6) Protein-calorie malnutrition, moderate Code(s): E44.0 - MODERATE PROTEIN-CALORIE MALNUTRITION Status: Acute (7) CAD (coronary artery disease) Code(s): I25.10 - ATHSCL HEART DISEASE OF [place] CORONARY ARTERY W/O ANG PCTRS Status: Acute (8) Hypernatremia Code(s): E87.0 - HYPEROSMOLALITY AND HYPERNATREMIA Status: Acute (9) Leukocytosis Code(s): D72.829 - ELEVATED WHITE BLOOD CELL COUNT, UNSPECIFIED Status: Acute - Plan will continue current abx, pt's overall prognosis is poor. I did speak with her son about code status and he states that she wanted everything to be done. He also told me that her 32y primary care doc recommended against intubation but she wanted it. will start her on continue feeds at 10ml/hr and titrate it up to 30ml/hr. per family she has not been eating much prior to coming in to this hospital. she is deconditioned. will add some reglan since she had high residual. she will have vocal code argumentation. will decrease her solucortef. will restart her plavix/asa and statin. According to family she has 4 stents. She also has a AICD. 06/02 pt appear ill will get a stat abg she most likley will need to be intubated. she is unable to hold her secretions. Son at bedside and is ok with this. will also broaden her abx given her elevated wbc. will give her some fluid since she is tachycardia. I got a call for her oncologist Dr campos who states that she recently got a cell count stimulating shot and most likley her elevated wbc is due to that. also she is very optimistic about her cancer tx and states it is very treatable if her current situation improves. 06/03 pt still intubated s/p bronscopy done yesterday which indicated significant amounts of thick secretions ( pus) around the trachea. will continue current abx for now. 06/04 pt is moving all her ext, will continue abx for now. she has significant edema to her upper ext. she is tolerating her feeding well. she is on free water. Her procedure was cancelled due to pt being intubated.
--- NOTE | 2019-06-04 18:03 | PRG ---
DATE OF SERVICE: 06/04/2019 SUBJECTIVE: The patient's sedation has been stopped. She is totally awake and aware and feels comfortable. She is not agitated, follows commands. OBJECTIVE: VITAL SIGNS: T-max 99.9, she is now 99.6, blood pressure 130/80, pulse 111, O2 saturations are 98 and she is on FiO2 of 40 and PEEP of 5. LUNGS: With fairly clear breath sounds, right and left side, much improved from prior visits. HEART: S1 and S2, regular rate. ABDOMEN: Soft and not distended. EXTREMITIES: Access port in the right subclavian location. She moves extremities on command. LABORATORY DATA: White cell count is 12.2 and then now is 17.7, hemoglobin 8.9, and platelets 175 with 86% neutrophils, 11% bands, which has improvement compared with prior visits. The patient has a culture from the central line, which showed no growth at 48 hours. Chest x-ray repeat from this morning with ET tube above the belle, AICD and port catheter in place. Small to moderate effusions and moderate bibasilar airspace opacities. 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 3. Recurrent aspiration with eventual Pseudomonas aeruginosa pneumonia and bacteremia. The plan is to continue treatment and eventually the patient will hopefully be a candidate for weaning and extubation. Otherwise, she will end up with a tracheostomy. Once extubation is accomplished, then she will be a candidate for repair of this mechanism by injection of plastic material in the vocal cord involved. We will go ahead and deescalate and discontinue fluconazole and discontinue linezolid as well. Job ID: [id number]
[2019-06-04] MEDS: Morphine 2 MG/ML SYRINGE SLOW IVP PRN ×2 (20:06→21:31)
[2019-06-04] MEDS: Acetaminophen 650 MG/20.3 ML UDCUP PO PRN (20:07)
[2019-06-05] MEDS: MEROPENEM 1 GM/50 ML 1 GM in Premix Bag 1 BAG IVPB SCH (05:25)
[2019-06-05] MEDS: Sodium Chloride 0.9% 1,000 ML IV SCH (05:25)
[2019-06-05 05:26] LABS: ALT (SGPT) 259 U/L (8-55); AST (SGOT) 367 U/L (5-34); Albumin 2.7 g/dL (3.4-4.8); Alkaline Phosphatase 136 U/L (40-110); Anion Gap 14 mmol/L (10-20); BUN (Urea Nitrogen) 42 mg/dL (9.8-20.1); Bilirubin, Direct 0.4 mg/dL (0.1-0.3); Bilirubin, Total 0.7 mg/dL (0.2-1.2); Calc. Creatinine Clearance 42 mL/min (70-130); Calcium 9.1 mg/dL (7.8-10.44); Carbon Dioxide 19 mmol/L (23-31); Cardiac Risk 3.2 (Less than 4.5); Chloride 119 mmol/L (98-107); Cholesterol 113 mg/dl (< 200 Desired); Estimated GFR-MDRD 47; Glucose 118 mg/dL (83-110); HDL Cholesterol 35 mg/dL (>60 Neg Risk); LDL Cholesterol, Calculated 49 mg/dL; Potassium 5.4 mmol/L (3.5-5.1); Protein, Total 5.2 g/dL (6.0-8.3); Sodium 147 mmol/L (136-145); Triglycerides 143 mg/dL (Less than 150)
[2019-06-05 06:35] LABS: Band 16 % (5-11); Hemoglobin 9.8 g/dL (12.0-16.0); Lymphocytes 7 % (21-51); MDiff Complete? YES; Mean Corpuscular Hemoglobin 30.8 pg (27.0-31.0); Mean Corpuscular Volume 96.3 fL (78.0-98.0); Mean Platelet Volume 11.8 fL (7.4-10.4); Metamyelocyte 1 % (0-0); Monocytes 6 % (0-10); Myelocyte 4 % (0-0); Neutrophil 66 % (42-75); Platelet Count 310 thou/uL (130-400); RBC Distribution Width 15.9 % (11.5-14.5); Red Blood Cell (RBC) Count 3.17 mill/uL (4.20-5.40)
--- NOTE | 2019-06-05 07:42 | RAD ---
Portable frontal chest radiograph: 06/05/2019 COMPARISON: 06/04/2019 HISTORY: Ventilated patient FINDINGS: Stable endotracheal tube, CT injectable Port-A-Cath, and dual lead transvenous pacing devic e. Stable masslike opacity in the right paratracheal region. Stable nonspecific streaky opacity in the right lung base. Stable dense opacity in the left base with blunting of left costophrenic angle s uggesting left lower lobe consolidation/collapse and left pleural fluid. No significant interval change. IMPRESSION: Stable frontal chest radiograph as detailed above.
[2019-06-05 08:09] LABS: Actual Bicarbonate (HCO3a) 15.4 mEq/L (22-28); Base Excess (BEa) -8.5 mEq/L (-2.0 to +3.0); CO2 Tension 26.9 mmHg (35.0-45.0); Calcium, Ionized 1.28 mmol/L (1.12-1.30); Carboxyhemoglobin (COHb) 0.2 gm% (0.0-3.0); Hemoglobin (Hb) 10.1 g/dL (12.0-16.0); O2 Tension (PaO2) 103.5 mmHg (> 70.0); Potassium - ABG Lab 5.46 mmol/L (3.70-5.30); pH, Arterial 7.38 (7.35-7.45)
[2019-06-05 08:10] LABS: ALV-art Gradient 148.075 (0-20); Puncture Site LRA
[2019-06-05] MEDS: Aspirin 81 mg Enteric Coated Tablet PO SCH (08:44)
[2019-06-05] MEDS: Clopidogrel Bisulfate 75 MG TAB PO SCH (08:44)
[2019-06-05] MEDS: Famotidine/PF 20 mg/2ml Vial SLOW IVP SCH (08:45)
[2019-06-05] MEDS: Enoxaparin Sodium 40 MG/0.4 ML SYRINGE SC SCH (08:45)
[2019-06-05] MEDS: methylPREDNISolone Sod Succ 40 MG VIAL IVP SCH (08:46)
[2019-06-05] MEDS: Gabapentin 300 MG CAP PO SCH ×3 (08:46→21:47)
--- NOTE | 2019-06-05 09:06 | PRG ---
DATE OF SERVICE: 06/05/2019 SUBJECTIVE: This morning, she is more awake, responsive. X-ray looks relatively stable with right upper lung infiltrate. All cultures and the bronch washings are showing gram-negative Pseudomonas. She adequately covered on antibiotics. OBJECTIVE: VITAL SIGNS: Pulse 103, blood pressure 125/66, saturations are 90%, she is on CPAP. GENERAL: She is more awake, more responsive, but still very weak. CHEST: Decreased breath sounds. No wheezing. Bilateral rhonchi. CARDIAC: Normal S1 and S2. No gallops. ABDOMEN: No masses. LABORATORY DATA: Total cholesterol is 113, triglyceride 143. PO2 of 103, pCO2 of 26.38. Platelet count is 310, white count 20,000. ASSESSMENT: 1. Status post chemotherapy for lymphoma, elevated liver function tests. 2. Immunocompromised gram-negative pneumonia Pseudomonas. PLAN: 1. Therapeutic bronchoscopy. We will wean and extubate. Otherwise, PT, supportive care. 2. We will follow. One-half hour of critical time. Job ID: [id number]
--- NOTE | 2019-06-05 10:44 | PRG ---
DATE OF SERVICE: 06/05/2019 SUBJECTIVE: A 79-year-old female remains weak, off sedation. OBJECTIVE: VITAL SIGNS: Temperature 98, pulse 80, blood pressure 128/81, respirations 18. CHEST: Decreased breath sounds. No wheezing. CARDIAC: Normal S1 and S2. No gallops. ABDOMEN: No masses. IMAGING STUDIES: X-ray still shows some nonspecific infiltrates. LABORATORY DATA: White count was 20,000. It was felt we will try and extubate following a bronchoscopy. Therefore, after using a bite block, flexible bronchoscope was passed using an adapter. Distal trachea was supposedly normal. The left lung had a very minimal amount of pus, but much improved. No edema. No erythema. This was suctioned and lavaged to clear. Right lung was inspected next. This also was unremarkable with very minimal amount of pus. This was also suctioned, lavaged to clear. Bronchoscope was removed. Endotracheal tube was removed. She was placed on high-flow. She tolerated the procedure well. She still remains severely deconditioned. She is n.p.o. The patient tolerated the procedure well. Job ID: [id number] [facility]
[2019-06-05] MEDS ORDERED: Meropenem 2 GM, Admixture Fee 1 EACH in Sodium Chloride 0.9% 100 ML IVPB SCH (12:00)
--- NOTE | 2019-06-05 15:00 | PDOC.HOSPP ---
- Subjective Encounter Date: 06/05/19 Encounter Time: 12:45 Subjective: pt extubated - Objective Vital Signs & Weight: Vital Signs (12 hours) Temp Pulse Pulse Pulse Resp BP BP 06/05/19 13:21 94 24 H 06/05/19 12:00 99.6 F 06/05/19 09:31 114 H 92 123/82 127/88 06/05/19 09:00 105 H 24 H 06/05/19 08:00 98.7 F 16 06/05/19 07:55 97 06/05/19 06:00 14 06/05/19 04:00 98.8 F 14 Pulse Ox Pulse Ox Pulse Ox 06/05/19 13:21 100 06/05/19 12:00 06/05/19 09:31 97 99 06/05/19 09:00 96 06/05/19 08:00 100 06/05/19 07:55 06/05/19 06:00 06/05/19 04:00 Weight Admit Weight 130 lb Weight 141 lb 1.533 oz Most Recent Monitor Data Heart Rate from ECG 96 NIBP 121/71 NIBP BP-Mean 87 Respiration from ECG 24 SpO2 100 I&O: 06/04/19 06/05/19 06/06/19 06:59 06:59 06:59 Intake Total 2973.3 4691 383 Output Total 465 390 137 Balance 2508.3 4301 246 Result Diagrams: 06/07/19 03:55 06/07/19 03:55 Hospitalist ROS - Review of Systems Other: pt has a face mask and not able to verbalize - Medication Medications: Active Medications Generic Name Dose Route Start Last Admin Trade Name Freq PRN Reason Stop Dose Admin Acetaminophen 650 mg 06/04/19 19:42 06/04/19 20:07 Tylenol Elixir PO 650 mg Q4H PRN Administration Headache/Fever/Mild Pain (1-3) Albuterol/Ipratropium 3 ml 05/29/19 13:00 06/05/19 13:21 Duoneb NEB 3 ml [id number] RACHEL Administration Aspirin 81 mg 06/02/19 09:00 06/05/19 08:44 Ecotrin PO 81 mg DAILY RACHEL Administration Clopidogrel Bisulfate 75 mg 06/02/19 09:00 06/05/19 08:44 Plavix PO 75 mg DAILY RACHEL Administration Enoxaparin Sodium 40 mg 05/29/19 09:00 06/05/19 08:45 Lovenox SC 40 mg 09 RACHEL Administration Famotidine 20 mg 05/30/19 09:00 06/05/19 08:45 Pepcid SLOW IVP 20 mg 0900 RACHEL Administration Gabapentin 300 mg 06/01/19 15:00 06/05/19 08:46 Neurontin PO 300 mg TID RACHEL Administration Dopamine HCl/Dextrose 250 mls @ 11.138 mls/hr 05/29/19 03:00 05/29/19 02:15 Dopamine 400 Mg/D5w 250 Ml IVPB 250 mls INF RACHEL Administration Protocol 5 MCG/KG/MIN Sodium Chloride 1,000 mls @ 75 mls/hr 06/02/19 22:45 06/05/19 05:25 Normal Saline 0.9% IV 1,000 mls .[id number] RACHEL Administration Meropenem 2 gm/ Miscellaneous 100 mls @ 0 mls/hr 06/05/19 12:00 06/05/19 12: 55 Medication 1 each/ Sodium IVPB 100 mls Chloride 1200,2359 RACHEL Administration Methylprednisolone Sodium Succinate 40 mg 06/04/19 09:00 06/05/19 08:46 Solu-Medrol IVP 40 mg DAILY RACHEL Administration Morphine Sulfate 2 mg 06/02/19 18:08 06/04/19 21:31 Morphine SLOW IVP 07/02/19 18:08 2 mg Q1H PRN Administration BREAKTHROUGH PAIN/Agitation Propofol 1,000 mg 06/02/19 18:08 06/03/19 18:10 Diprivan IV 07/02/19 18:08 1,000 mg INF PRN Administration TO ACHIEVE GOAL RASS Protocol Sodium Chloride 10 ml 05/29/19 21:00 06/05/19 08:46 Flush - Normal Saline IVF 10 ml Q12HR RACHEL Administration - Exam ENT - other findings: she is unable to talk Respiratory: rhonchi Gastrointestinal: negative: soft, non-tender, non-distended, normal bowel sounds , no palpable masses, no hepatomegaly, no splenomegaly, no bruit, no guarding, no rigidity, tender to palpation, distended, diminished bowl sounds, voluntary guarding Extremities - other findings: significant swelling to her upper ext Neurological: negative: cranial nerve grossly intact, normal sensation to touch , no weakness, no focal deficits, no new deficit, facial droop, hemiplegia, speech deficit, vision deficit Hosp A/P (1) Acute respiratory failure Code(s): J96.00 - ACUTE RESPIRATORY FAILURE, UNSP W HYPOXIA OR HYPERCAPNIA Status: Acute (2) Lymphoma Status: Acute (3) Pseudomonas aeruginosa infection Code(s): A49.8 - OTHER BACTERIAL INFECTIONS OF UNSPECIFIED SITE Status: Acute (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 - OTHER CONGENITAL MALFORMATIONS OF [place] Status: Acute (5) Pneumonia Code(s): J18.9 - PNEUMONIA, UNSPECIFIED ORGANISM Status: Acute (6) Protein-calorie malnutrition, moderate Code(s): E44.0 - MODERATE PROTEIN-CALORIE MALNUTRITION Status: Acute (7) CAD (coronary artery disease) Code(s): I25.10 - ATHSCL HEART DISEASE OF [place] CORONARY ARTERY W/O ANG PCTRS Status: Acute (8) Hypernatremia Code(s): E87.0 - HYPEROSMOLALITY AND HYPERNATREMIA Status: Acute (9) Leukocytosis Code(s): D72.829 - ELEVATED WHITE BLOOD CELL COUNT, UNSPECIFIED Status: Acute - Plan will continue current abx, pt's overall prognosis is poor. I did speak with her son about code status and he states that she wanted everything to be done. He also told me that her 32y primary care doc recommended against intubation but she wanted it. will start her on continue feeds at 10ml/hr and titrate it up to 30ml/hr. per family she has not been eating much prior to coming in to this hospital. she is deconditioned. will add some reglan since she had high residual. she will have vocal code argumentation. will decrease her solucortef. will restart her plavix/asa and statin. According to family she has 4 stents. She also has a AICD. 06/02 pt appear ill will get a stat abg she most likley will need to be intubated. she is unable to hold her secretions. Son at bedside and is ok with this. will also broaden her abx given her elevated wbc. will give her some fluid since she is tachycardia. I got a call for her oncologist Dr campos who states that she recently got a cell count stimulating shot and most likley her elevated wbc is due to that. also she is very optimistic about her cancer tx and states it is very treatable if her current situation improves. 06/03 pt still intubated s/p bronscopy done yesterday which indicated significant amounts of thick secretions ( pus) around the trachea. will continue current abx for now. 06/04 pt is moving all her ext, will continue abx for now. she has significant edema to her upper ext. she is tolerating her feeding well. she is on free water. Her procedure was cancelled due to pt being intubated. 06/05 will increase her free water. she has been extubated. Her fluids have been stopped. will monitor.
[2019-06-05] MEDS ORDERED: Furosemide 40 MG/4 ML VIAL ONE (16:46)
[2019-06-05] MEDS: Meropenem 500 MG in Sodium Chloride 0.9% 100 ML IVPB SCH ×2 (18:01→23:53)
[2019-06-05] MEDS ORDERED: Midazolam HCl 2 mg/2 ml Vial ONE (20:56)
[2019-06-05] MEDS ORDERED: Vancomycin HCl 1 GM in Sodium Chloride 0.9% 250 ML 300 ML IVPB SCH (21:00)
[2019-06-05] MEDS ORDERED: Benzocaine 20% Spray 60 ML CAN FS SCH (21:00)
[2019-06-05] MEDS ORDERED: Midazolam HCl 2 mg/2 ml Vial IVP ONE (21:05)
--- NOTE | 2019-06-05 21:15 | PRG ---
DATE OF SERVICE: 06/05/2019 SUBJECTIVE: Ms. Madsen has been extubated. She establishes eye contact, has a hard time in speaking, appears to be very weak. She does not follow some commands and will move her extremities, but not as strong as when she was intubated. Has not had any diarrhea. OBJECTIVE: VITAL SIGNS: She did have a temperature elevation up to 101.3 yesterday at 07:00 p.m., she is now 99.2, BP 115/75, and heart rate 94. She still has the right groin catheter that had been inserted few days ago. The port is accessed. HEENT: Eye movements are conjugate. Pupils are constricted. LUNGS: Fairly clear breath sounds, S1 and S2, regular rate. ABDOMEN: Flat, soft, and not-distended with the Rios catheter in place. LABORATORY DATA: The white cell count was down to 12 and is up now to 26, hemoglobin is 9.8, platelets are 310, only 16% bands. Microbiology: We have negative blood culture from June 02. Repeated her chest x-ray, has dense opacity in left base with blunting of left costophrenic angle. ASSESSMENT AND DISCUSSION: 1. 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 2. Pseudomonas aeruginosa pneumonia with bacteremia. The patient now has had recurrence of fever and nosocomial complications more likely scenario. The main concern is bacteremia or fungemia in view of the catheter in the groin. The patient will be switched to a prolonged infusion of meropenem. We will also restart MRSA coverage because of this development. Intraabdominal inflammatory process is another concern, particularly in view of the elevation of liver enzymes we will have to go ahead and check her abdomen ultrasound. Job ID: [id number] [facility]
[2019-06-05] MEDS ORDERED: Sodium Chloride 0.9% 1,000 ML IV SCH ×3 (21:45)
[2019-06-05] MEDS: Vancomycin HCl 1 GM in Premix Bag 1 BAG IVPB SCH (21:47)
[2019-06-05] MEDS: Acetaminophen 650 MG/20.3 ML UDCUP PO PRN (21:47)
[2019-06-05] MEDS: Sodium Chloride 0.45% 1,000 ML IV SCH (21:49)
--- NOTE | 2019-06-05 22:06 | PRG ---
DATE OF SERVICE: 06/05/2019 SUBJECTIVE: Ms. Madsen was evaluated with the son at the bedside after she is intubated. OBJECTIVE: VITAL SIGNS: Blood pressure is in the 90s, heart rates in 80s. GENERAL: She appears comfortable now after some sedation. He has informed me that he does not want her resuscitated should she have a cardiac arrest. Apparently, he and his sister have differences of opinion about how aggressive to be. His mother apparently pointed him to be power of healthcare when he was over in [place], but he does not have those papers. He tells me the case workers were supposed to try to get those papers from [place], but they have not yet. PLAN: We will honor his wishes for do not resuscitate. We will continue with aggressive care. Give her 1 L of saline because her pressure will likely drop. A little more as she is sedated and then continue with some IV fluids. I have explained to him that her prognosis is quite poor based on simply her weakness. He was told that the lymphoma was very treatable, which is true. She did not have these kind of setbacks. I am not sure if she can recover to a point where she can never receive chemo again. He understands that it is very supportive blood gas prior to intubation. We will await until morning for another blood gas. The do not resuscitate order will be placed. Critical care time is 35 minutes, independent of procedure performed. Job ID: [id number] [facility]
[2019-06-06] MEDS ORDERED: Acetaminophen 650 MG Suppository PR PRN (01:40)
[2019-06-06] MEDS ORDERED: Acetaminophen 650 MG Suppository PR SCH (02:00)
[2019-06-06 04:12] LABS: Band 10 % (5-11); Large Platelets SLIGHT; Lymphocytes 1 % (21-51); MDiff Complete? YES; Metamyelocyte 3 % (0-0); Monocytes 1 % (0-10); Neutrophil 85 % (42-75); Nucleated RBC 2 % (0); Platelet Morphology Comment Appears Adequate
[2019-06-06 04:18] LABS: Hemoglobin 8.8 g/dL (12.0-16.0); Mean Corpuscular HGB CONC 32.1 g/dL (32.0-36.0); Mean Corpuscular Volume 96.6 fL (78.0-98.0); Mean Platelet Volume 12.4 fL (7.4-10.4); Platelet Count 224 thou/uL (130-400); Red Blood Cell (RBC) Count 2.84 mill/uL (4.20-5.40); White Blood Cell (WBC) Count 26.3 thou/uL (4.8-10.8)
[2019-06-06 04:21] LABS: Anion Gap 14 mmol/L (10-20); BUN (Urea Nitrogen) 57 mg/dL (9.8-20.1); Calc. Creatinine Clearance 33 mL/min (70-130); Calcium 8.5 mg/dL (7.8-10.44); Carbon Dioxide 17 mmol/L (23-31); Chloride 120 mmol/L (98-107); Estimated GFR-MDRD 35; Glucose 136 mg/dL (83-110); Potassium 4.7 mmol/L (3.5-5.1); Sodium 146 mmol/L (136-145)
[2019-06-06] MEDS: Meropenem 500 MG in Sodium Chloride 0.9% 100 ML IVPB SCH ×3 (05:39→18:35)
[2019-06-06 07:14] LABS: Actual Bicarbonate (HCO3a) 14.6 mEq/L (22-28); Base Excess (BEa) -8.3 mEq/L (-2.0 to +3.0); Calcium, Ionized 1.23 mmol/L (1.12-1.30); Carboxyhemoglobin (COHb) 0.3 gm% (0.0-3.0); Hemoglobin (Hb) 9.8 g/dL (12.0-16.0); O2 Tension (PaO2) 102.6 mmHg (> 70.0); Potassium - ABG Lab 4.66 mmol/L (3.70-5.30); pH, Arterial 7.43 (7.35-7.45)
[2019-06-06 07:29] LABS: CO2 Tension 22.6 mmHg (35.0-45.0); Puncture Site LRA
--- NOTE | 2019-06-06 08:37 | ULT ---
Ultrasound of theabdomen: 06/06/2019 COMPARISON:None available HISTORY:Fever, abnormal LFTs TECHNIQUE: Multiplanar grayscale sonographic imaging of theabdomen FINDINGS:The imaged IVC and aorta appear grossly unremarkable, partially obscured by bowel gas. The imaged pancreas is grossly unremarkable but partially obscured by bowel gas. The hepatic parenchyma is mildly heterogeneous. No discrete focal liver lesion or intrahepatic biliar y dilatation. There is a right pleural effusion. Right kidney measures 10.3 cm in craniocaudal dimension and demonstrates no evidence for stone, hydro nephrosis, or mass. There is marked gallbladder wall thickening. There is small volume pericholecystic fluid. Small echog enic foci in gallbladder suggest small gallstones. The spleen measures 11.8 cm in greatest dimension, within normal limits. The left kidney measures 8.8 cm in craniocaudal dimension and demonstrates no evidence for stone, hyd ronephrosis, or mass. IMPRESSION: Prominent gallbladder wall thickening with small volume pericholecystic fluid and gallsto jennifer. The slps reports a negative Tejeda's sign. Findings may signify acute cholecystitis in the proper clinical setting. Clinical correlation is essential. If further imaging assessment is clin ically warranted, hepatobiliary scan suggested. Incompletely imaged right pleural effusion.
--- NOTE | 2019-06-06 09:12 | RAD ---
CHEST 1 VIEW: HISTORY: Ventilated patient. COMPARISON: None. FINDINGS: Port catheter is similar. Endotracheal tube tip is not well seen due to overlying leads, although it is very close to the belle. Moderate effusions. No pneumothorax. Cardiac device is similar. IMPRESSION: 1. Endotracheal tube tip very close to the belle, although not well seen due to overlying leads. R ecommend retraction 2 cm. 2. Moderate effusions and cardiomegaly. POS: CET
[2019-06-06] MEDS: Gabapentin 300 MG CAP PO SCH ×3 (09:16→21:25)
[2019-06-06] MEDS: Clopidogrel Bisulfate 75 MG TAB PO SCH (09:16)
[2019-06-06] MEDS: Aspirin 81 mg Enteric Coated Tablet PO SCH (09:16)
[2019-06-06] MEDS: Enoxaparin Sodium 30 MG/0.3 ML SYRINGE SC SCH (09:16)
[2019-06-06] MEDS: methylPREDNISolone Sod Succ 40 MG VIAL IVP SCH (09:16)
[2019-06-06] MEDS: Famotidine/PF 20 mg/2ml Vial SLOW IVP SCH (09:17)
--- NOTE | 2019-06-06 09:36 | PRG ---
DATE OF SERVICE: 06/06/2019 SUBJECTIVE: Vesna Madsen was extubated, re-intubated for progressive respiratory failure. OBJECTIVE: VITAL SIGNS: Blood pressure 130/86, sats 100%, respiratory rate 18, and pulse 80. She is sedated. CHEST: Extensive rhonchi. CARDIAC: Normal S1 and S2. No gallops. ABDOMEN: No masses. DIAGNOSTIC DATA: Chest x-ray showed evidence of cardiomegaly and left-sided infiltrate. She had ultrasound done of the abdomen yesterday, which showed gallbladder with thickened small volume of pericholecystic fluid and gallstones. Tejeda sign was negative. LABORATORY DATA: Her white count is elevated at 26, H and H are 8 and 27, and platelet count is normal. PO2 of 102, , rate of 20, 40%, 500 tidal volume, pressure support 10, and PEEP of 5. BUN and creatinine of 57 and 1.46. BNP is almost 10,000. ASSESSMENT: Multiorgan respiratory failure; severe deconditioning; gram-negative Pseudomonas; tracheobronchial pneumonia, status post chemotherapy; pancytopenia, resolved; lymphoma; azotemia. Son has made the patient DNR. Long discussion once again was held with the son. She has a PEG and a feeding in place. She has failed a swallow test. Vancomycin on board. One-half hour of critical time. Job ID: [id number]
--- NOTE | 2019-06-06 13:59 | PDOC.PALPN ---
Palliative Progress Note - Subjective Remains mechanically intubated, no sedation. Patient opens eyes spontaneously, pronounced weakness, drifts back to sleep state. Patient was extubated yesterday, however secondary to respiratory decline required to be reintubated. Dr Li visited iw the son and patient was transitioned to a DNAR. Called to bedside to visit with patient daughter and son to revisit resuscitation status. - Objective Vital Signs: Vital Signs - Most Recent Temp Pulse Resp BP Pulse Ox 98.5 F 113 H 23 H 117/72 99 06/06/19 07:00 06/06/19 13:41 06/06/19 10:00 06/06/19 02:08 06/06/19 08:00 - Physical Exam Constitutional: cachectic, ill appearing HEENT: moist MMs, sclera anicteric Deviation from normal: mechanical ventilation, adventicious lung sounds Cardiovascular: RRR Gastrointestinal: non-tender, incontinent Genitourinary: bah catheter Musculoskeletal: edema present Neurology: moves all 4 limbs Skin: bruising, fragile - Assessment (1) Palliative care encounter Code(s): Z51.5 - ENCOUNTER FOR PALLIATIVE CARE Current Visit: Yes Status: Acute (2) Physical deconditioning Code(s): R53.81 - OTHER MALAISE Current Visit: Yes Status: Acute (3) Acute respiratory failure Code(s): J96.00 - ACUTE RESPIRATORY FAILURE, UNSP W HYPOXIA OR HYPERCAPNIA Current Visit: Yes Status: Acute (4) Bacteremia Code(s): R78.81 - BACTEREMIA Current Visit: Yes Status: Acute (5) CAD (coronary artery disease) Code(s): I25.10 - ATHSCL HEART DISEASE OF [place] CORONARY ARTERY W/O ANG PCTRS Current Visit: Yes Status: Acute (6) Dysphagia Code(s): R13.10 - DYSPHAGIA, UNSPECIFIED Current Visit: Yes Status: Acute (7) Lymphoma Current Visit: Yes Status: Acute (8) Pneumonia Code(s): J18.9 - PNEUMONIA, UNSPECIFIED ORGANISM Current Visit: Yes Status: Acute (9) Protein-calorie malnutrition, moderate Code(s): E44.0 - MODERATE PROTEIN-CALORIE MALNUTRITION Current Visit: Yes Status: Acute - Plan Plan: Discussed resuscitation status at length with Patient son and daughter. Requested to have Ms Madsen transitioned to intubate only, no chemical/chest compressions/defibrillation. Family fears if she is accidentally extubated that she would not be reintubated. Conversation in relation to fragile health status. Therapeutic listening and emotional support offered. *Dr Gomez notified of family wishes. *MELECIO RN caring for patient has secured the MPOA that was signed by the patient listing her son as MPOA from [facility]. *Revisit Goal of care Sunday with patient (if able to participate) son and daughter. [60] minutes spent on this encounter with >50% of the time in counseling and coordination of care. - ROS Non Response: due to endotracheal tube, due to mental status
--- NOTE | 2019-06-06 14:04 | PRG ---
DATE OF SERVICE: 06/06/2019 SUBJECTIVE: Cale had to be reintubated. She now is awake, but is delirious and cannot follow commands. OBJECTIVE: VITAL SIGNS: T-max of 101.3 and now she is 98.5, blood pressure 120/80, pulse 104, respirations 27, O2 saturation 97%. The right groin catheter has been removed. HEENT: Ocular movements are conjugate. She has the right port accessed. LUNGS: Symmetric air entry. Few crackles at the bases. HEART: S1 and S2, regular rate. ABDOMEN: Soft. Not distended. Gastrostomy tube in place with normal-appearing exit site. Rios catheter. I's and O's have been positive consistently for the past few days. EXTREMITIES: Flaccid with edema. LABORATORY DATA: White cell count is up to 26.3, hemoglobin 8.8, platelets 224 with 85% neutrophils. Sodium 146, creatinine 1.46. BNP was 9900. Abdominal ultrasound; heterogeneous hepatic parenchyma, right pleural effusion, marked gallbladder wall thickening, small volume of pericholecystic fluid. Repeat chest x-ray; moderate effusions, cardiomegaly. ET tube close to the belle. Currently, the patient is on inhalers, enoxaparin, fentanyl, furosemide, meropenem extended infusion, methylprednisolone, which was restarted. She is on vancomycin as well. 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 A do not resuscitate order has been placed. Poor overall prognosis. Job ID: [id number]
[2019-06-06] MEDS: Furosemide 20 MG/2 ML VIAL SLOW IVP SCH (14:05)
[2019-06-06] MEDS: Morphine 2 MG/ML SYRINGE SLOW IVP PRN (14:05)
[2019-06-06] MEDS: Sodium Chloride 0.45% 1,000 ML IV SCH (14:06)
--- NOTE | 2019-06-06 14:56 | OP ---
DATE OF PROCEDURE: 06/05/2019 Ms. Madsen has had increasing problems with feedings, progressed with handling her secretions and clearing her airway. She is so weak, she cannot cough up her secretions in my opinion. OBJECTIVE: VITAL SIGNS: At this time, she is 113/70, heart rate is 106, respiratory rate is in the teens. BiPAP has been placed while I was driving in to see her. LUNGS: Remarkable for rhonchi on both sides. I recommend intubation. A disposable bronchoscope was brought to the bedside. Her upper airway was full of saliva that she was unable to clear. Once this was suctioned out, I was able to visualize her vocal cords. Bronchoscope was passed through the vocal cords and she was intubated with a 7.5 endotracheal tube, secured at 23 cm at the lips. She was connected to mechanical ventilation. She was sedated with 2 mg of Versed. Sedation protocol will be started. Son was contacted by the nursing staff. Son claims he wants everything to be done. I cannot see any way she can possibly survive this, much less be a candidate for chemotherapy in the future. Critical care time 40 minutes, independent of the procedure performed. Job ID: [id number]
[2019-06-06] MEDS: Vancomycin HCl 1 GM in Premix Bag 1 BAG IVPB SCH (21:25)
[2019-06-06] MEDS: Acetaminophen 650 MG/20.3 ML UDCUP PO PRN (21:25)
[2019-06-07] MEDS: Meropenem 500 MG in Sodium Chloride 0.9% 100 ML IVPB SCH ×5 (00:17→23:41)
[2019-06-07 04:33] LABS: Anion Gap 16 mmol/L (10-20); BUN (Urea Nitrogen) 77 mg/dL (9.8-20.1); Calc. Creatinine Clearance 27 mL/min (70-130); Calcium 8.3 mg/dL (7.8-10.44); Carbon Dioxide 17 mmol/L (23-31); Chloride 118 mmol/L (98-107); Estimated GFR-MDRD 25; Glucose 216 mg/dL (83-110); Potassium 4.5 mmol/L (3.5-5.1); Sodium 146 mmol/L (136-145)
[2019-06-07] MEDS: Furosemide 20 MG/2 ML VIAL SLOW IVP SCH (05:09)
[2019-06-07 05:19] LABS: Band 8 % (5-11); Elliptocytes SLIGHT = 2-5 cells (100X) (0-1/hpf); Hemoglobin 9.5 g/dL (12.0-16.0); Hypochromia SLIGHT = 6-15 cells (100X) (0-5/hpf); MDiff Complete? YES; Mean Corpuscular HGB CONC 32.2 g/dL (32.0-36.0); Mean Corpuscular Hemoglobin 31.1 pg (27.0-31.0); Mean Corpuscular Volume 96.6 fL (78.0-98.0); Mean Platelet Volume 12.2 fL (7.4-10.4); Monocytes 9 % (0-10); Neutrophil 83 % (42-75); Nucleated RBC 2 % (0); Platelet Count 256 thou/uL (130-400); Platelet Morphology Comment Appears Adequate; RBC Distribution Width 16.3 % (11.5-14.5); Red Blood Cell (RBC) Count 3.07 mill/uL (4.20-5.40); White Blood Cell (WBC) Count 28.4 thou/uL (4.8-10.8)
[2019-06-07 07:38] LABS: Actual Bicarbonate (HCO3a) 15.6 mEq/L (22-28); Base Excess (BEa) -8.5 mEq/L (-2.0 to +3.0); CO2 Tension 27.4 mmHg (35.0-45.0); Calcium, Ionized 1.17 mmol/L (1.12-1.30); Carboxyhemoglobin (COHb) 0.1 gm% (0.0-3.0); Hemoglobin (Hb) 9.7 g/dL (12.0-16.0); O2 Tension (PaO2) 78.7 mmHg (> 70.0); Potassium - ABG Lab 4.45 mmol/L (3.70-5.30); pH, Arterial 7.37 (7.35-7.45)
[2019-06-07 07:39] LABS: Puncture Site LB
--- NOTE | 2019-06-07 10:06 | PRG ---
DATE OF SERVICE: 06/07/2019 35 minutes critical time. SUBJECTIVE: This patient remains intubated on mechanical ventilation. She looks extremely weak and frail. OBJECTIVE: VITAL SIGNS: Her temperature is 98.8, pulse 105, blood pressure 115/79, O2 saturation 99%. A 24-hour intake 4029, output 798. She has been approximately 20 pounds over her admission weight. HEENT: Remarkable for alopecia. An endotracheal tube in place. NECK: No JVD. LUNGS: Coarse rhonchi bilaterally. CARDIOVASCULAR: S1, S2. Slightly tachycardic. ABDOMEN: Soft and nontender. EXTREMITIES: Edematous throughout with severe muscle wasting. LABORATORY DATA: White blood cell count 28.4, hematocrit 29.6, and platelet count 256 with 83% neutrophils. PH is 7.37, pCO2 of 27, pO2 of 78, on SIMV rate 14, tidal of 450, PEEP of 5, pressure support 10, FiO2 of 40%. Sodium 146, potassium 4.5, chloride 118, CO2 of 17, BUN 77, creatinine 1.9, and glucose 216. IMAGING DATA: Chest x-ray continues to show severe pulmonary vascular congestion bilaterally. ASSESSMENT: 1. Acute respiratory failure requiring mechanical ventilation. 2. 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 3. Severe protein-calorie malnutrition. 4. 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 5. Pseudomonal pneumonia. 6. Overt fluid overload. 7. Acute on chronic renal insufficiency. RECOMMENDATIONS: 1. In my mind, there is probably little hope for recovery. I spoke to the son at bedside. If they want to forge on with continued care, then I would recommend tracheostomy as I doubt she will be able to maintain her airway given her severe weakness and her vocal cord paresis. 2. The patient is significantly fluid overloaded and I would recommend attempts to fluid restrict her as much as possible. Unfortunately, her renal function is quite poor and we are looking in a situation where that is probably going to get worse before it gets better. 3. Further decisions will be made by the family next week. I think they understand the prognosis is quite poor. Job ID: [id number]
[2019-06-07] MEDS: Aspirin 81 mg Enteric Coated Tablet PO SCH (10:16)
[2019-06-07] MEDS: Gabapentin 300 MG CAP PO SCH ×3 (10:16→19:36)
[2019-06-07] MEDS: Clopidogrel Bisulfate 75 MG TAB PO SCH (10:16)
[2019-06-07] MEDS: Famotidine/PF 20 mg/2ml Vial SLOW IVP SCH (10:17)
[2019-06-07] MEDS: Enoxaparin Sodium 30 MG/0.3 ML SYRINGE SC SCH (10:17)
[2019-06-07] MEDS: methylPREDNISolone Sod Succ 40 MG VIAL IVP SCH (10:18)
[2019-06-07] MEDS: Bacteriostatic Water 30 ML VIAL FS PRN (10:19)
--- NOTE | 2019-06-07 11:59 | RAD ---
EXAM: CHEST ONE VIEW HISTORY: On ventilator. Follow-up evaluation COMPARISON: 06/06/2019 FINDINGS: Endotracheal tube is again noted in place with the tip at the level of the belle and similar in posi tion to the prior study. Endotracheal tube should be retracted by approximately 1 to 2 cm. Right subclavian Mediport catheter remain in place. Dual lead left subclavian AICD device is present. Heart is magnified by projection but stable in size. Patient is rotated to the right which accentuates the cardiac silhouette and mediastinal structures. Bilateral pleural effusions are again seen with as sociated passive atelectasis. No other interval change. IMPRESSION: 1. Stable chest with bilateral pleural effusions again larger in size on the left. 2. Endotracheal tube remaining in place with tip at the level of the belle. Endotracheal tube should be retracted approximately 1 to 2 cm.
[2019-06-07] MEDS: Furosemide 40 MG/4 ML VIAL SLOW IVP SCH ×3 (12:11→21:22)
[2019-06-07] MEDS: Albumin 25% 25 GM/100 ML BOT IVPB SCH ×3 (12:12→21:22)
[2019-06-07] MEDS ORDERED: Albumin 25% 25 GM/100 ML BOT IVPB SCH (14:00)
--- NOTE | 2019-06-07 17:12 | PRG ---
DATE OF SERVICE: 06/07/2019 SUBJECTIVE: The patient noted with the following vital signs. OBJECTIVE: VITAL SIGNS: Blood pressure 115/79, pulse of 96, and O2 saturations are 88% to 91%. HEENT: Remarkable for endotracheal tube in place. CARDIOVASCULAR SYSTEM: First and second heart sounds were heard. RESPIRATORY SYSTEM: Revealed some vented sounds. DIGESTIVE SYSTEM: Revealed a benign abdomen. EXTREMITIES: Showed obvious peripheral edema. LABORATORY INVESTIGATION: Showed a creatinine gone up to 1.9. IMPRESSION: 1. Worsening acute kidney injury, this is likely in the context of prerenal due to intravascular depletion. 2. Complicated fluid status. This patient is overall hypovolemic, but intravascularly depleted. 3. Cardiopulmonary failure. PLAN: 1. We will try to increase the patient's intravascular oncotic pressure by giving this patient albumin to see if we have to mobilize this fluid and improve diuresis. 2. Renally dose all medications. 3. Further management to be dependent on the clinical course. Prognosis is poor. Job ID: [id number]
--- NOTE | 2019-06-07 19:31 | PDOC.HOSPP ---
- Subjective Encounter Date: 06/06/19 Encounter Time: 10:30 Subjective: pt intubated - Objective Vital Signs & Weight: Vital Signs (12 hours) Temp Pulse Resp BP Pulse Ox 06/07/19 19:06 107 H 100 06/07/19 19:05 100 06/07/19 19:00 98.6 F 06/07/19 18:00 21 H 06/07/19 16:00 98.1 F 22 H 06/07/19 14:54 96 115/79 06/07/19 14:00 24 H 06/07/19 12:34 105 H 20 100 06/07/19 12:00 99.5 F 24 H 06/07/19 10:53 96 119/72 06/07/19 10:00 23 H 06/07/19 08:00 18 100 Weight Admit Weight 130 lb Weight 155 lb 4.417 oz Most Recent Monitor Data Heart Rate from ECG 107 NIBP 118/76 NIBP BP-Mean 90 Respiration from ECG 20 SpO2 99 I&O: 06/06/19 06/07/19 06/08/19 06:59 06:59 06:59 Intake Total 4512 4029 2756 Output Total 1069 798 738 Balance 8868 6649 2017 Result Diagrams: 06/07/19 03:55 06/07/19 03:55 Hospitalist ROS - Review of Systems Other: pt intubated - Medication Medications: Active Medications Generic Name Dose Route Start Last Admin Trade Name Freq PRN Reason Stop Dose Admin Acetaminophen 650 mg 06/04/19 19:42 06/06/19 21:25 Tylenol Elixir PO 650 mg Q4H PRN Administration Headache/Fever/Mild Pain (1-3) Albumin Human 25 gm 06/07/19 10:00 06/07/19 16:58 Albumin 25% IVPB 06/08/19 04:01 25 gm Q6H RACHEL Administration Albuterol/Ipratropium 3 ml 05/29/19 13:00 06/07/19 19:05 Duoneb NEB 3 ml [id number] RACHEL Administration Aspirin 81 mg 06/02/19 09:00 06/07/19 10:16 Ecotrin PO 81 mg DAILY RACHEL Administration Clopidogrel Bisulfate 75 mg 06/02/19 09:00 06/07/19 10:16 Plavix PO 75 mg DAILY RACHEL Administration Enoxaparin Sodium 30 mg 06/06/19 09:00 06/07/19 10:17 Lovenox SC 30 mg 0900 RACHEL Administration Famotidine 20 mg 05/30/19 09:00 06/07/19 10:17 Pepcid SLOW IVP 20 mg 0900 RACHEL Administration Furosemide 40 mg 06/07/19 10:00 06/07/19 16:58 Lasix SLOW IVP 06/08/19 04:01 40 mg Q6H RACHEL Administration Gabapentin 300 mg 06/01/19 15:00 06/07/19 15:30 Neurontin PO 300 mg TID RACHEL Administration Meropenem 500 mg/ Sodium 100 mls @ 33.333 mls/hr 06/05/19 18:00 06/07/19 18: 21 Chloride IVPB 100 mls Q6HR RACHEL Administration Vancomycin HCl 1 gm/ Device 200 mls @ 200 mls/hr 06/05/19 22:00 06/06/19 21: 25 IVPB 200 mls Q24HR@2200 RACHEL Administration Methylprednisolone Sodium Succinate 40 mg 06/04/19 09:00 06/07/19 10:18 Solu-Medrol IVP 40 mg DAILY RACHEL Administration Morphine Sulfate 2 mg 06/02/19 18:08 06/06/19 14:05 Morphine SLOW IVP 07/02/19 18:08 2 mg Q1H PRN Administration BREAKTHROUGH PAIN/Agitation Propofol 1,000 mg 06/02/19 18:08 06/03/19 18:10 Diprivan IV 07/02/19 18:08 1,000 mg INF PRN Administration TO ACHIEVE GOAL RASS Protocol Sodium Chloride 10 ml 05/29/19 21:00 06/07/19 10:18 Flush - Normal Saline IVF Not Given Q12HR [facility] Sterile Water 1 ml 06/04/19 08:34 06/07/19 10:19 Bacteriostatic Water FS 1 ml PRN PRN Administration RECONSTITUTION - Exam Heart: negative: RRR, no murmur, no gallops, no rubs, normal peripheral pulses, irregular, diminshed peripheral pulses, murmur present, II/IV, III/IV Respiratory: rhonchi. negative: CTAB, no wheezes, no rales, no ronchi, normal chest expansion, no tachypnea, normal percussion, rales, tachypneic, wheezes Gastrointestinal: negative: soft, non-tender, non-distended, normal bowel sounds , no palpable masses, no hepatomegaly, no splenomegaly, no bruit, no guarding, no rigidity, tender to palpation, distended, diminished bowl sounds, voluntary guarding Hosp A/P (1) Acute respiratory failure Code(s): J96.00 - ACUTE RESPIRATORY FAILURE, UNSP W HYPOXIA OR HYPERCAPNIA Status: Acute (2) Lymphoma Status: Acute (3) Pseudomonas aeruginosa infection Code(s): A49.8 - OTHER BACTERIAL INFECTIONS OF UNSPECIFIED SITE Status: Acute (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 - OTHER CONGENITAL MALFORMATIONS OF [place] Status: Acute (5) Pneumonia Code(s): J18.9 - PNEUMONIA, UNSPECIFIED ORGANISM Status: Acute (6) Protein-calorie malnutrition, moderate Code(s): E44.0 - MODERATE PROTEIN-CALORIE MALNUTRITION Status: Acute (7) CAD (coronary artery disease) Code(s): I25.10 - ATHSCL HEART DISEASE OF [place] CORONARY ARTERY W/O ANG PCTRS Status: Acute (8) Hypernatremia Code(s): E87.0 - HYPEROSMOLALITY AND HYPERNATREMIA Status: Acute (9) Leukocytosis Code(s): D72.829 - ELEVATED WHITE BLOOD CELL COUNT, UNSPECIFIED Status: Acute - Plan will continue current abx, pt's overall prognosis is poor. I did speak with her son about code status and he states that she wanted everything to be done. He also told me that her 32y primary care doc recommended against intubation but she wanted it. will start her on continue feeds at 10ml/hr and titrate it up to 30ml/hr. per family she has not been eating much prior to coming in to this hospital. she is deconditioned. will add some reglan since she had high residual. she will have vocal code argumentation. will decrease her solucortef. will restart her plavix/asa and statin. According to family she has 4 stents. She also has a AICD. 06/02 pt appear ill will get a stat abg she most likley will need to be intubated. she is unable to hold her secretions. Son at bedside and is ok with this. will also broaden her abx given her elevated wbc. will give her some fluid since she is tachycardia. I got a call for her oncologist Dr campos who states that she recently got a cell count stimulating shot and most likley her elevated wbc is due to that. also she is very optimistic about her cancer tx and states it is very treatable if her current situation improves. 06/03 pt still intubated s/p bronscopy done yesterday which indicated significant amounts of thick secretions ( pus) around the trachea. will continue current abx for now. 06/04 pt is moving all her ext, will continue abx for now. she has significant edema to her upper ext. she is tolerating her feeding well. she is on free water. Her procedure was cancelled due to pt being intubated. 06/05 will increase her free water. she has been extubated. Her fluids have been stopped. will monitor. 06/06 pt reintubated, will monitor. her overall prognosis does not appear well.
--- NOTE | 2019-06-07 19:33 | PDOC.HOSPP ---
- Subjective Encounter Date: 06/07/19 Encounter Time: 11:30 Subjective: pt intubated - Objective Vital Signs & Weight: Vital Signs (12 hours) Temp Pulse Resp BP Pulse Ox 06/07/19 19:06 107 H 100 06/07/19 19:05 100 06/07/19 19:00 98.6 F 06/07/19 18:00 21 H 06/07/19 16:00 98.1 F 22 H 06/07/19 14:54 96 115/79 06/07/19 14:00 24 H 06/07/19 12:34 105 H 20 100 06/07/19 12:00 99.5 F 24 H 06/07/19 10:53 96 119/72 06/07/19 10:00 23 H 06/07/19 08:00 18 100 Weight Admit Weight 130 lb Weight 155 lb 4.417 oz Most Recent Monitor Data Heart Rate from ECG 107 NIBP 118/76 NIBP BP-Mean 90 Respiration from ECG 20 SpO2 99 I&O: 06/06/19 06/07/19 06/08/19 06:59 06:59 06:59 Intake Total 4512 4029 2756 Output Total 1069 798 738 Balance 3638 4737 2017 Result Diagrams: 06/07/19 03:55 06/07/19 03:55 Hospitalist ROS - Review of Systems Other: pt intubated - Medication Medications: Active Medications Generic Name Dose Route Start Last Admin Trade Name Freq PRN Reason Stop Dose Admin Acetaminophen 650 mg 06/04/19 19:42 06/06/19 21:25 Tylenol Elixir PO 650 mg Q4H PRN Administration Headache/Fever/Mild Pain (1-3) Albumin Human 25 gm 06/07/19 10:00 06/07/19 16:58 Albumin 25% IVPB 06/08/19 04:01 25 gm Q6H RACHEL Administration Albuterol/Ipratropium 3 ml 05/29/19 13:00 06/07/19 19:05 Duoneb NEB 3 ml [id number] RACHEL Administration Aspirin 81 mg 06/02/19 09:00 06/07/19 10:16 Ecotrin PO 81 mg DAILY RACHEL Administration Clopidogrel Bisulfate 75 mg 06/02/19 09:00 06/07/19 10:16 Plavix PO 75 mg DAILY RACHEL Administration Enoxaparin Sodium 30 mg 06/06/19 09:00 06/07/19 10:17 Lovenox SC 30 mg 0900 RACHEL Administration Famotidine 20 mg 05/30/19 09:00 06/07/19 10:17 Pepcid SLOW IVP 20 mg 0900 RACHEL Administration Furosemide 40 mg 06/07/19 10:00 06/07/19 16:58 Lasix SLOW IVP 06/08/19 04:01 40 mg Q6H RACHEL Administration Gabapentin 300 mg 06/01/19 15:00 06/07/19 15:30 Neurontin PO 300 mg TID RACHEL Administration Meropenem 500 mg/ Sodium 100 mls @ 33.333 mls/hr 06/05/19 18:00 06/07/19 18: 21 Chloride IVPB 100 mls Q6HR RACHEL Administration Vancomycin HCl 1 gm/ Device 200 mls @ 200 mls/hr 06/05/19 22:00 06/06/19 21: 25 IVPB 200 mls Q24HR@2200 RACHEL Administration Methylprednisolone Sodium Succinate 40 mg 06/04/19 09:00 06/07/19 10:18 Solu-Medrol IVP 40 mg DAILY RACHEL Administration Morphine Sulfate 2 mg 06/02/19 18:08 06/06/19 14:05 Morphine SLOW IVP 07/02/19 18:08 2 mg Q1H PRN Administration BREAKTHROUGH PAIN/Agitation Propofol 1,000 mg 06/02/19 18:08 06/03/19 18:10 Diprivan IV 07/02/19 18:08 1,000 mg INF PRN Administration TO ACHIEVE GOAL RASS Protocol Sodium Chloride 10 ml 05/29/19 21:00 06/07/19 10:18 Flush - Normal Saline IVF Not Given Q12HR [facility] Sterile Water 1 ml 06/04/19 08:34 06/07/19 10:19 Bacteriostatic Water FS 1 ml PRN PRN Administration RECONSTITUTION - Exam Neck: negative: supple, symmetric, no JVD, no thyromegaly, no lymphadenopathy, no carotid bruit, JVD Heart: negative: RRR, no murmur, no gallops, no rubs, normal peripheral pulses, irregular, diminshed peripheral pulses, murmur present, II/IV, III/IV Respiratory: rhonchi Gastrointestinal: negative: soft, non-tender, non-distended, normal bowel sounds , no palpable masses, no hepatomegaly, no splenomegaly, no bruit, no guarding, no rigidity, tender to palpation, distended, diminished bowl sounds, voluntary guarding Hosp A/P (1) Acute respiratory failure Code(s): J96.00 - ACUTE RESPIRATORY FAILURE, UNSP W HYPOXIA OR HYPERCAPNIA Status: Acute (2) Lymphoma Status: Acute (3) Pseudomonas aeruginosa infection Code(s): A49.8 - OTHER BACTERIAL INFECTIONS OF UNSPECIFIED SITE Status: Acute (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 - OTHER CONGENITAL MALFORMATIONS OF [place] Status: Acute (5) Pneumonia Code(s): J18.9 - PNEUMONIA, UNSPECIFIED ORGANISM Status: Acute (6) Protein-calorie malnutrition, moderate Code(s): E44.0 - MODERATE PROTEIN-CALORIE MALNUTRITION Status: Acute (7) CAD (coronary artery disease) Code(s): I25.10 - ATHSCL HEART DISEASE OF [place] CORONARY ARTERY W/O ANG PCTRS Status: Acute (8) Hypernatremia Code(s): E87.0 - HYPEROSMOLALITY AND HYPERNATREMIA Status: Acute (9) Leukocytosis Code(s): D72.829 - ELEVATED WHITE BLOOD CELL COUNT, UNSPECIFIED Status: Acute - Plan will continue current abx, pt's overall prognosis is poor. I did speak with her son about code status and he states that she wanted everything to be done. He also told me that her 32y primary care doc recommended against intubation but she wanted it. will start her on continue feeds at 10ml/hr and titrate it up to 30ml/hr. per family she has not been eating much prior to coming in to this hospital. she is deconditioned. will add some reglan since she had high residual. she will have vocal code argumentation. will decrease her solucortef. will restart her plavix/asa and statin. According to family she has 4 stents. She also has a AICD. 06/02 pt appear ill will get a stat abg she most likley will need to be intubated. she is unable to hold her secretions. Son at bedside and is ok with this. will also broaden her abx given her elevated wbc. will give her some fluid since she is tachycardia. I got a call for her oncologist Dr campos who states that she recently got a cell count stimulating shot and most likley her elevated wbc is due to that. also she is very optimistic about her cancer tx and states it is very treatable if her current situation improves. 06/03 pt still intubated s/p bronscopy done yesterday which indicated significant amounts of thick secretions ( pus) around the trachea. will continue current abx for now. 06/04 pt is moving all her ext, will continue abx for now. she has significant edema to her upper ext. she is tolerating her feeding well. she is on free water. Her procedure was cancelled due to pt being intubated. 06/05 will increase her free water. she has been extubated. Her fluids have been stopped. will monitor. 06/06 pt reintubated, will monitor. her overall prognosis does not appear well. 06/07 will increase her free water and add albumin. nephrology consulted. spoke with family about her overall poor outcome.
[2019-06-07] MEDS: Morphine 2 MG/ML SYRINGE SLOW IVP PRN (20:49)
[2019-06-07 21:16] LABS: Vancomycin, Trough 24.5 ug/mL
[2019-06-07] MEDS: Vancomycin HCl 1 GM in Premix Bag 1 BAG IVPB SCH (21:22)
[2019-06-08] MEDS: Morphine 2 MG/ML SYRINGE SLOW IVP PRN (03:04)
[2019-06-08] MEDS: Albumin 25% 25 GM/100 ML BOT IVPB SCH (03:31)
[2019-06-08] MEDS: Furosemide 40 MG/4 ML VIAL SLOW IVP SCH (03:31)
[2019-06-08 05:21] LABS: Anion Gap 18 mmol/L (10-20); BUN (Urea Nitrogen) 93 mg/dL (9.8-20.1); Calc. Creatinine Clearance 25 mL/min (70-130); Carbon Dioxide 18 mmol/L (23-31); Chloride 114 mmol/L (98-107); Estimated GFR-MDRD 22; Glucose 145 mg/dL (83-110); Potassium 4.7 mmol/L (3.5-5.1); Sodium 145 mmol/L (136-145)
[2019-06-08 05:32] LABS: Band 11 % (5-11); Hemoglobin 8.2 g/dL (12.0-16.0); Lymphocytes 2 % (21-51); MDiff Complete? YES; Mean Corpuscular HGB CONC 32.8 g/dL (32.0-36.0); Mean Corpuscular Hemoglobin 31.5 pg (27.0-31.0); Mean Corpuscular Volume 95.9 fL (78.0-98.0); Mean Platelet Volume 12.3 fL (7.4-10.4); Metamyelocyte 1 % (0-0); Monocytes 8 % (0-10); Myelocyte 2 % (0-0); Neutrophil 76 % (42-75); Nucleated RBC 2 % (0); Platelet Count 169 thou/uL (130-400); Platelet Morphology Comment Appears Adequate; RBC Distribution Width 16.6 % (11.5-14.5); RBC Morphology Normal; Red Blood Cell (RBC) Count 2.59 mill/uL (4.20-5.40); White Blood Cell (WBC) Count 26.5 thou/uL (4.8-10.8)
[2019-06-08] MEDS: Meropenem 500 MG in Sodium Chloride 0.9% 100 ML IVPB SCH ×4 (05:51→23:59)
[2019-06-08 05:58] VITALS: BMI 28.9
[2019-06-08 07:51] LABS: Actual Bicarbonate (HCO3a) 16.4 mEq/L (22-28); Base Excess (BEa) -8.7 mEq/L (-2.0 to +3.0); CO2 Tension 32.1 mmHg (35.0-45.0); Calcium, Ionized 1.17 mmol/L (1.12-1.30); Carboxyhemoglobin (COHb) 1.8 gm% (0.0-3.0); Hemoglobin (Hb) 7.7 g/dL (12.0-16.0); O2 Tension (PaO2) 83.9 mmHg (> 70.0); Potassium - ABG Lab 4.54 mmol/L (3.70-5.30); pH, Arterial 7.33 (7.35-7.45)
[2019-06-08 08:01] LABS: ALV-art Gradient 89.875 (0-20); Puncture Site LB
--- NOTE | 2019-06-08 09:42 | PDOC.HOSPP ---
- Subjective Encounter Date: 06/08/19 Encounter Time: 09:40 Subjective: intubated, minimally responsive - Objective Vital Signs & Weight: Vital Signs (12 hours) Temp Pulse Resp BP Pulse Ox 06/08/19 08:00 99.2 F 06/08/19 07:03 97 113/74 100 06/08/19 06:57 98 16 100 06/08/19 05:59 14 06/08/19 04:21 92 06/08/19 04:00 99 F 14 98 06/08/19 01:57 22 H 06/08/19 00:17 105 H 110/79 06/08/19 00:16 98 06/08/19 00:00 98.8 F 06/07/19 23:52 16 06/07/19 22:00 14 Weight Admit Weight 130 lb Weight 158 lb 4.163 oz Most Recent Monitor Data Heart Rate from ECG 89 NIBP 102/64 NIBP BP-Mean 76 Respiration from ECG 14 SpO2 99 I&O: 06/07/19 06/08/19 06/09/19 06:59 06:59 06:59 Intake Total 4029 5272 Output Total 798 1128 87 Balance 3231 4144 -87 Result Diagrams: 06/08/19 03:08 06/08/19 03:08 Radiology Reviewed by me: Yes (cxr- ET tube, bilat pleural effusions) Hospitalist ROS - Medication Medications: Active Medications Generic Name Dose Route Start Last Admin Trade Name Freq PRN Reason Stop Dose Admin Acetaminophen 650 mg 06/04/19 19:42 06/06/19 21:25 Tylenol Elixir PO 650 mg Q4H PRN Administration Headache/Fever/Mild Pain (1-3) Albuterol/Ipratropium 3 ml 05/29/19 13:00 06/08/19 06:57 Duoneb NEB 3 ml [id number] RACHEL Administration Aspirin 81 mg 06/02/19 09:00 06/07/19 10:16 Ecotrin PO 81 mg DAILY RACHEL Administration Clopidogrel Bisulfate 75 mg 06/02/19 09:00 06/07/19 10:16 Plavix PO 75 mg DAILY RACHEL Administration Enoxaparin Sodium 30 mg 06/06/19 09:00 06/07/19 10:17 Lovenox SC 30 mg 09 RACHEL Administration Famotidine 20 mg 05/30/19 09:00 06/07/19 10:17 Pepcid SLOW IVP 20 mg 0900 RACHEL Administration Gabapentin 300 mg 06/01/19 15:00 06/07/19 19:36 Neurontin PO 300 mg TID RACHEL Administration Meropenem 500 mg/ Sodium 100 mls @ 33.333 mls/hr 06/05/19 18:00 06/08/19 05: 51 Chloride IVPB 100 mls Q6HR RACHEL Administration Lorazepam 2 mg 06/02/19 18:08 06/08/19 04:01 Ativan SLOW IVP 07/02/19 18:08 2 mg Q1H PRN Administration Breakthrough agitation Methylprednisolone Sodium Succinate 40 mg 06/04/19 09:00 06/07/19 10:18 Solu-Medrol IVP 40 mg DAILY RACHEL Administration Morphine Sulfate 2 mg 06/02/19 18:08 06/08/19 03:04 Morphine SLOW IVP 07/02/19 18:08 2 mg Q1H PRN Administration BREAKTHROUGH PAIN/Agitation Propofol 1,000 mg 06/02/19 18:08 06/03/19 18:10 Diprivan IV 07/02/19 18:08 1,000 mg INF PRN Administration TO ACHIEVE GOAL RASS Protocol Sodium Chloride 10 ml 05/29/19 21:00 06/07/19 19:36 Flush - Normal Saline IVF Not Given Q12HR RACHEL Sterile Water 1 ml 06/04/19 08:34 06/07/19 10:19 Bacteriostatic Water FS 1 ml PRN PRN Administration RECONSTITUTION - Exam Neck: no JVD Heart: RRR, no murmur Respiratory - other findings: bilat coarse BS with rhonchi Gastrointestinal: soft, normal bowel sounds Extremities: 2+ LE edema Hosp A/P (1) Sepsis Code(s): A41.9 - SEPSIS, UNSPECIFIED ORGANISM Status: Acute Qualifiers: Sepsis type: Pseudomonas Sepsis acute organ dysfunction status: with acute organ dysfunction Severe sepsis acute organ dysfunction type: acute renal failure Severe sepsis shock status: unspecified (2) Acute respiratory failure Code(s): J96.00 - ACUTE RESPIRATORY FAILURE, UNSP W HYPOXIA OR HYPERCAPNIA Status: Acute Qualifiers: Respiratory failure complication: hypoxia Qualified Code(s): J96.01 - Acute respiratory failure with hypoxia (3) Aspiration into airway Code(s): T17.908A - UNSP FB IN RESP TRACT, PART UNSP CAUSING OTH INJURY, INIT Status: Acute (4) CAD (coronary artery disease) Code(s): I25.10 - ATHSCL HEART DISEASE OF [place] CORONARY ARTERY W/O ANG PCTRS Status: Acute Qualifiers: Coronary Disease-Associated Artery/Lesion type: [place] artery [place] vs. transplanted heart: [place] heart Associated angina: without angina Qualified Code(s): I25.10 - Atherosclerotic heart disease of [place] coronary artery without angina pectoris (5) Dysphagia Code(s): R13.10 - DYSPHAGIA, UNSPECIFIED Status: Acute (6) Hypernatremia Code(s): E87.0 - HYPEROSMOLALITY AND HYPERNATREMIA Status: Acute (7) Lymphoma Status: Acute Qualifiers: Lymphoma type: non-Hodgkin Non-Hodgkin lymphoma type: B-cell B-cell lymphoma type: unspecified B-cell Lymphoma site: neck Qualified Code(s): C85.11 - Unspecified B-cell lymphoma, lymph nodes of head, face, and neck (8) Pseudomonas aeruginosa infection Code(s): A49.8 - OTHER BACTERIAL INFECTIONS OF UNSPECIFIED SITE Status: Acute - Plan vent dependent on iv antibx now DNAR
[2019-06-08] MEDS: Aspirin 81 mg Enteric Coated Tablet PO SCH (09:46)
[2019-06-08] MEDS: Clopidogrel Bisulfate 75 MG TAB PO SCH (09:46)
[2019-06-08] MEDS: Gabapentin 300 MG CAP PO SCH ×3 (09:47→22:08)
[2019-06-08] MEDS: Enoxaparin Sodium 30 MG/0.3 ML SYRINGE SC SCH (09:50)
[2019-06-08] MEDS: Famotidine/PF 20 mg/2ml Vial SLOW IVP SCH (09:52)
[2019-06-08] MEDS: methylPREDNISolone Sod Succ 40 MG VIAL IVP SCH (09:52)
[2019-06-08] MEDS: Bacteriostatic Water 30 ML VIAL FS PRN (09:53)
--- NOTE | 2019-06-08 11:00 | PRG ---
DATE OF SERVICE: 06/08/2019 TIME SPENT: 35 minutes of critical care time. SUBJECTIVE: Ms. Madsen continues to do poorly despite aggressive treatment. I was able to speak to her son and her grandson at bedside. OBJECTIVE: VITAL SIGNS: Her temperature is 99.2, pulse 100, blood pressure 114/74, O2 saturation 100% on minimal sedation. GENERAL: She is not responsive for me. HEENT: Remarkable for alopecia. NECK: No adenopathy or JVD. LUNGS: Coarse breath sounds. CARDIOVASCULAR: S1 and S2. Slightly tachycardic. ABDOMEN: Soft. PEG tube noted. EXTREMITIES: Edematous throughout. LABORATORY DATA: Sodium 145, potassium 4.7, chloride 114, CO2 of 18, BUN 93, creatinine 2.1, and glucose 145. White blood cell count 26.5, hematocrit 24.9, and platelet count 169. PH of 7.33, pCO2 of 32, and pO2 of 83. Cultures show Pseudomonas from bronchial washing on 06/02/2019, which was sensitive to all antibiotics on the panel. ASSESSMENT: 1. Worsening acute kidney injury despite giving volume yesterday. 2. Significant third spacing. 3. Lymphoma. 4. Acute respiratory failure, requiring mechanical ventilation. 5. Protein-calorie malnutrition. PLAN: It is hard to see a scenario in which this patient will survive the current illness. I was very jaida with the family in that regard. I would advocate converting to palliative care measures. I have reviewed the orders. She will continue the IV antibiotics. We have stopped any diuretics. She will continue on steroids. She is not weanable at this time. Job ID: [id number]
--- NOTE | 2019-06-08 12:02 | RAD ---
CHEST ONE VIEW: HISTORY: Respiratory insufficiency. COMPARISON: 06/07/2019 FINDINGS: Endotracheal tube at the level of the belle but essentially unchanged from 06/07/2019. Left ICD. Rig ht subclavian catheter injection port. Bilateral vascular congestion with some bilateral interstitial opacity changes and pleural effusions. IMPRESSION: Overall stable chest. Endotracheal tube at the level of the belle. POS: [facility]
[2019-06-08] MEDS ORDERED: Vancomycin HCl 500 MG in Sodium Chloride 0.9% 100 ML IVPB SCH (22:00)
[2019-06-09 04:58] LABS: Band 5 % (5-11); Hemoglobin 8.1 g/dL (12.0-16.0); Lymphocytes 3 % (21-51); MDiff Complete? YES; Mean Corpuscular HGB CONC 32.9 g/dL (32.0-36.0); Mean Corpuscular Hemoglobin 31.6 pg (27.0-31.0); Mean Corpuscular Volume 95.9 fL (78.0-98.0); Mean Platelet Volume 12.5 fL (7.4-10.4); Monocytes 2 % (0-10); Neutrophil 90 % (42-75); Nucleated RBC 5 % (0); Platelet Count 151 thou/uL (130-400); Platelet Morphology Comment Appears Adequate; RBC Distribution Width 16.4 % (11.5-14.5); Red Blood Cell (RBC) Count 2.56 mill/uL (4.20-5.40); White Blood Cell (WBC) Count 25.6 thou/uL (4.8-10.8)
[2019-06-09 05:02] LABS: Anion Gap 19 mmol/L (10-20); BUN (Urea Nitrogen) 113 mg/dL (9.8-20.1); Calc. Creatinine Clearance 23 mL/min (70-130); Calcium 9.4 mg/dL (7.8-10.44); Carbon Dioxide 17 mmol/L (23-31); Chloride 114 mmol/L (98-107); Estimated GFR-MDRD 20; Glucose 160 mg/dL (83-110); Potassium 4.7 mmol/L (3.5-5.1); Sodium 145 mmol/L (136-145)
[2019-06-09] MEDS: Meropenem 500 MG in Sodium Chloride 0.9% 100 ML IVPB SCH ×2 (05:33→12:42)
[2019-06-09 07:21] LABS: Actual Bicarbonate (HCO3a) 15.5 mEq/L (22-28); Base Excess (BEa) -8.8 mEq/L (-2.0 to +3.0); CO2 Tension 27.5 mmHg (35.0-45.0); Calcium, Ionized 1.23 mmol/L (1.12-1.30); Carboxyhemoglobin (COHb) 1.9 gm% (0.0-3.0); Hemoglobin (Hb) 7.6 g/dL (12.0-16.0); O2 Tension (PaO2) 96.8 mmHg (> 70.0); Potassium - ABG Lab 4.42 mmol/L (3.70-5.30); pH, Arterial 7.37 (7.35-7.45)
[2019-06-09 07:22] LABS: ALV-art Gradient 82.725 (0-20); Puncture Site LRA
--- NOTE | 2019-06-09 08:30 | PRG ---
DATE OF SERVICE: 06/09/2019 SUBJECTIVE: Vesna Madsen is a 79-year-old female, remains in the ICU intubated in the vent, pretty much encephalopathic. OBJECTIVE: VITAL SIGNS: Pulse 99, blood pressure 118/75, saturations are 95%, respiratory rate 18. I's and O's 5272 in, 1128 out. GENERAL: She barely opens her eyes. CHEST: Decreased breath sounds. Bilateral rhonchi. CARDIAC: Normal S1 and S2. No gallops. ABDOMEN: No masses. LABORATORY DATA: White count is 25,000, H and H 8 and 24, and platelet count 51. PO2 is 96, pCO2 35 ph 7.51. BUN and creatinine are elevated. ASSESSMENT: 1. Worsening renal failure. 2. Respiratory failure. 3. Gram-negative pneumonia. 4. Severe deconditioning. 5. Congestive heart failure. 6. Lymphoma status post chemotherapy. PLAN: 1. Awaiting sister's arrival. 2. At this stage, comfort care. Did not incline to do a trach and a PEG. One half hour critical time. Job ID: [id number] MTDD
--- NOTE | 2019-06-09 08:33 | RAD ---
Chest AP view INDICATION: Intubation COMPARISON: 06/08/2019 FINDINGS: Lungs: Bibasilar airspace opacities persist. Cardiac silhouette: Mild cardiomegaly is stable Pulmonary vasculature: Mild pulmonary vascular congestion is stable Pleural spaces: Small bilateral pleural effusions persist Upper abdomen: No abnormality seen. Osseous structures: No acute osseous abnormality. Additional findings: The ET tube tip is now seen 8 mm above the level of belle. AICD and right ches t wall port is unchanged. IMPRESSION: Stable exam. ET tube tip now seen 8 mm above the level of belle.
--- NOTE | 2019-06-09 08:45 | PDOC.HOSPP ---
- Subjective Encounter Date: 06/09/19 Encounter Time: 08:43 Subjective: non-responsive - Objective Vital Signs & Weight: Vital Signs (12 hours) Temp Pulse Resp BP 06/09/19 07:52 97 06/09/19 07:00 97.6 F 06/09/19 06:00 18 06/09/19 04:00 98.6 F 20 06/09/19 03:42 97 06/09/19 02:00 18 06/09/19 00:00 97.9 F 16 06/08/19 23:07 97 118/75 06/08/19 22:00 16 Weight Admit Weight 130 lb Weight 154 lb 8.705 oz Most Recent Monitor Data Heart Rate from ECG 95 NIBP 118/75 NIBP BP-Mean 89 Respiration from ECG 17 SpO2 100 I&O: 06/08/19 06/09/19 06/10/19 06:59 06:59 06:59 Intake Total 5272 1637.1 Output Total 1128 646 45 Balance 4144 991.1 -45 Result Diagrams: 06/09/19 04:30 06/09/19 04:30 Hospitalist ROS - Medication Medications: Active Medications Generic Name Dose Route Start Last Admin Trade Name Freq PRN Reason Stop Dose Admin Acetaminophen 650 mg 06/04/19 19:42 06/06/19 21:25 Tylenol Elixir PO 650 mg Q4H PRN Administration Headache/Fever/Mild Pain (1-3) Albuterol/Ipratropium 3 ml 05/29/19 13:00 06/09/19 07:10 Duoneb NEB 3 ml [id number] RACHEL Administration Clopidogrel Bisulfate 75 mg 06/02/19 09:00 06/08/19 09:46 Plavix PO 75 mg DAILY RACHEL Administration Enoxaparin Sodium 30 mg 06/06/19 09:00 06/08/19 09:50 Lovenox SC 30 mg 0900 RACHEL Administration Meropenem 500 mg/ Sodium 100 mls @ 33.333 mls/hr 06/05/19 18:00 06/09/19 05: 33 Chloride IVPB 100 mls Q6HR RACHEL Administration Vancomycin HCl 500 mg/ Sodium 100 mls @ 100 mls/hr 06/08/19 22:00 06/08/19 22 :08 Chloride IVPB 100 mls Q24HR@2200 RACHEL Administration Methylprednisolone Sodium Succinate 40 mg 06/04/19 09:00 06/08/19 09:52 Solu-Medrol IVP 40 mg DAILY RACHEL Administration Morphine Sulfate 2 mg 06/02/19 18:08 06/08/19 03:04 Morphine SLOW IVP 07/02/19 18:08 2 mg Q1H PRN Administration BREAKTHROUGH PAIN/Agitation Propofol 1,000 mg 06/02/19 18:08 06/03/19 18:10 Diprivan IV 07/02/19 18:08 1,000 mg INF PRN Administration TO ACHIEVE GOAL RASS Protocol Sodium Chloride 10 ml 05/29/19 21:00 06/08/19 22:08 Flush - Normal Saline IVF 10 ml Q12HR RACHEL Administration Sterile Water 1 ml 06/04/19 08:34 06/08/19 09:53 Bacteriostatic Water FS 1 ml PRN PRN Administration RECONSTITUTION - Exam General Appearance: ill appearing Neck: no JVD Heart: RRR Respiratory - other findings: coarse BS with rhonchi Gastrointestinal: soft, normal bowel sounds Extremities: no edema Hosp A/P (1) Sepsis Code(s): A41.9 - SEPSIS, UNSPECIFIED ORGANISM Status: Acute Qualifiers: Sepsis type: Pseudomonas Sepsis acute organ dysfunction status: with acute organ dysfunction Severe sepsis acute organ dysfunction type: acute renal failure Severe sepsis shock status: unspecified (2) Acute respiratory failure Code(s): J96.00 - ACUTE RESPIRATORY FAILURE, UNSP W HYPOXIA OR HYPERCAPNIA Status: Acute Qualifiers: Respiratory failure complication: hypoxia Qualified Code(s): J96.01 - Acute respiratory failure with hypoxia (3) Aspiration into airway Code(s): T17.908A - UNSP FB IN RESP TRACT, PART UNSP CAUSING OTH INJURY, INIT Status: Acute (4) CAD (coronary artery disease) Code(s): I25.10 - ATHSCL HEART DISEASE OF [place] CORONARY ARTERY W/O ANG PCTRS Status: Acute Qualifiers: Coronary Disease-Associated Artery/Lesion type: [place] artery [place] vs. transplanted heart: [place] heart Associated angina: without angina Qualified Code(s): I25.10 - Atherosclerotic heart disease of [place] coronary artery without angina pectoris (5) Dysphagia Code(s): R13.10 - DYSPHAGIA, UNSPECIFIED Status: Acute (6) Hypernatremia Code(s): E87.0 - HYPEROSMOLALITY AND HYPERNATREMIA Status: Acute (7) Lymphoma Status: Acute Qualifiers: Lymphoma type: non-Hodgkin Non-Hodgkin lymphoma type: B-cell B-cell lymphoma type: unspecified B-cell Lymphoma site: neck Qualified Code(s): C85.11 - Unspecified B-cell lymphoma, lymph nodes of head, face, and neck (8) Pseudomonas aeruginosa infection Code(s): A49.8 - OTHER BACTERIAL INFECTIONS OF UNSPECIFIED SITE Status: Acute - Plan vent dependent on iv antibx now DNAR planned palliative care and extubation today talked with family present
[2019-06-09] MEDS ORDERED: Famotidine 20 MG TAB PO SCH (09:00)
--- NOTE | 2019-06-09 09:02 | CON ---
DATE OF CONSULTATION: CONSULTING PHYSICIAN: Stephane Baumann MD REQUESTING PHYSICIAN: Siobhan Gomez MD REASON FOR CONSULTATION: Acute kidney injury. IMPRESSION: 1. Acute kidney injury this is likely hemodynamically-mediated. The patient seems to be overall hypervolemic but intravascularly depleted. 2. Hyponatremia in the context of free water deficit. 3. Multiorgan failure. PLAN: 1. Increase the free water repletion. 2. Renally dose medications and avoid potentially nephrotoxic agents. 3. Very challenging to rehydrate this patient; however, if the renal function deteriorates any further, the patient may benefit from increasing oncotic pressure with albumin. 4. Further management will be dependent on the clinical course. HISTORY OF PRESENT ILLNESS: History is that of 79-year-old of female patient, who is not doing very well in ICU . Presently extubated, but had to be reintubated most likely because of inadequate intermittent airway . The patient noted with elevated creatinine as well as elevated . She has been able has been very tenuous. In clinical evaluation and discussion, the patient seems to be overall fluid overloaded, but intravascularly depleted. As a result of these findings, decision has been taken to involve Renal in the management of this case. PAST MEDICAL HISTORY: Significant for hypertension, dyslipidemia, B-cell lymphoma, and aspiration pneumonia. MEDICATIONS: Reviewed as documented on [facility]. SOCIAL HISTORY: Remote tobacco use, quit in about 1999. FAMILY HISTORY: Significant for heart disease. REVIEW OF SYSTEMS: Could not be obtained from this patient, who is sedated and intubated. PHYSICAL EXAMINATION: GENERAL: The patient was found to be critically ill looking. Noted with the following vital signs. VITAL SIGNS: Blood pressure of 120/79, pulse of 102, and O2 saturation of 97%. HEENT: Remarkable for endotracheal tube in place. CARDIOVASCULAR SYSTEM: First and second heart sounds were heard. RESPIRATORY SYSTEM: Clear to auscultation vented sounds. DIGESTIVE SYSTEM: Revealed a benign abdomen. EXTREMITIES: Showed significant peripheral edema. SUMMARY: A 79-year-old female patient, who has not been doing very well in the ICU, on support, now experiencing worsening sodium level and kidney function. Thank you for this consultation. We will follow with you. Job ID: [id number]
--- NOTE | 2019-06-09 09:26 | PRG ---
DATE OF SERVICE: 06/08/2019 SUBJECTIVE: The patient is seen and still on life support, noted with the following vital signs. OBJECTIVE: VITAL SIGNS: Afebrile, temperature 97.9, blood pressure 118/75, O2 saturation of 100% on ventilator. HEENT: Unremarkable. CARDIOVASCULAR SYSTEM: First and second heart sounds were heard. RESPIRATORY SYSTEM: Revealed vented sounds. DIGESTIVE SYSTEM: Revealed a benign abdomen. EXTREMITIES: Show significant peripheral edema. LABORATORY INVESTIGATION: Showed a creatinine of 2.13, BUN of 93, bicarb of 18. IMPRESSION: 1. Hemodynamically-mediated acute tubular necrosis in the context of intravascular depletion. 2. Worsening azotemia. 3. Worsening metabolic acidosis. PLAN: 1. We will start this patient on albumin hoping to increase the intravascular oncotic pressure. 2. Condition/prognosis of this patient is very poor. 3. Further management will be dependent on how aggressive the family wants to be in the treatment of this patient. Job ID: [id number]
[2019-06-09] MEDS: methylPREDNISolone Sod Succ 40 MG VIAL IVP SCH (09:43)
[2019-06-09] MEDS: Enoxaparin Sodium 30 MG/0.3 ML SYRINGE SC SCH (09:44)
[2019-06-09] MEDS: Clopidogrel Bisulfate 75 MG TAB PO SCH (10:10)
--- NOTE | 2019-06-09 12:31 | PRG ---
DATE OF SERVICE: 06/09/2019 SUBJECTIVE: The patient was seen. Noted with the following vital signs. OBJECTIVE: VITAL SIGNS: Blood pressure 116/73, afebrile, still on life support. HEENT: Remarkable for endotracheal tube in place. CARDIOVASCULAR: First and second sounds. RESPIRATORY: Vented sounds. DIGESTIVE SYSTEM: Benign abdomen. EXTREMITIES: Showed significant peripheral edema. LABORATORY INVESTIGATIONS: Showed hemoglobin of 8.1 with white count of 25,600. Worsening metabolic acidosis with bicarb of 17. BUN of 113, and creatinine of 2.33. IMPRESSION: 1. Worsening acute tubular necrosis with profound azotemia. 2. Worsening metabolic acidosis. PLAN: 1. From all indications, the patient's renal function is deteriorating and that is worsening the patient's already bad prognosis. 2. Further management will be dependent on how aggressive the family will like to be as the renal function is likely to progressively get worse. Job ID: [id number]
[2019-06-09] MEDS: Morphine 2 MG/ML SYRINGE SLOW IVP PRN ×2 (19:35→22:25)
[2019-06-10] MEDS: Morphine 2 MG/ML SYRINGE SLOW IVP PRN ×7 (03:02→17:56)
--- NOTE | 2019-06-10 07:47 | PDOC.HOSPP ---
- Subjective Encounter Date: 06/10/19 Encounter Time: 07:43 Subjective: unresponsive - Objective Vital Signs & Weight: Weight Admit Weight 130 lb Weight 154 lb 8.705 oz Most Recent Monitor Data Heart Rate from ECG 101 NIBP 126/74 NIBP BP-Mean 91 Respiration from ECG 22 SpO2 94 I&O: 06/09/19 06/10/19 06/11/19 06:59 06:59 06:59 Intake Total 1637.1 100 Output Total 646 380 200 Balance 991.1 -280 -200 Result Diagrams: 06/09/19 04:30 06/09/19 04:30 Hospitalist ROS - Medication Medications: Active Medications Generic Name Dose Route Start Last Admin Trade Name Freq PRN Reason Stop Dose Admin Morphine Sulfate 2 mg 06/02/19 18:08 06/10/19 06:14 Morphine SLOW IVP 07/02/19 18:08 2 mg Q1H PRN Administration BREAKTHROUGH PAIN/Agitation - Exam General Appearance: NAD Neck: no JVD Heart: RRR Respiratory - other findings: grossly clear [place] Gastrointestinal: soft, normal bowel sounds Extremities: no edema Hosp A/P (1) Sepsis Code(s): A41.9 - SEPSIS, UNSPECIFIED ORGANISM Status: Acute Qualifiers: Sepsis type: Pseudomonas Sepsis acute organ dysfunction status: with acute organ dysfunction Severe sepsis acute organ dysfunction type: acute renal failure Severe sepsis shock status: unspecified (2) Acute respiratory failure Code(s): J96.00 - ACUTE RESPIRATORY FAILURE, UNSP W HYPOXIA OR HYPERCAPNIA Status: Acute Qualifiers: Respiratory failure complication: hypoxia Qualified Code(s): J96.01 - Acute respiratory failure with hypoxia (3) Aspiration into airway Code(s): T17.908A - UNSP FB IN RESP TRACT, PART UNSP CAUSING OTH INJURY, INIT Status: Acute (4) CAD (coronary artery disease) Code(s): I25.10 - ATHSCL HEART DISEASE OF [place] CORONARY ARTERY W/O ANG PCTRS Status: Acute Qualifiers: Coronary Disease-Associated Artery/Lesion type: [place] artery [place] vs. transplanted heart: [place] heart Associated angina: without angina Qualified Code(s): I25.10 - Atherosclerotic heart disease of [place] coronary artery without angina pectoris (5) Dysphagia Code(s): R13.10 - DYSPHAGIA, UNSPECIFIED Status: Acute (6) Hypernatremia Code(s): E87.0 - HYPEROSMOLALITY AND HYPERNATREMIA Status: Acute (7) Lymphoma Status: Acute Qualifiers: Lymphoma type: non-Hodgkin Non-Hodgkin lymphoma type: B-cell B-cell lymphoma type: unspecified B-cell Lymphoma site: neck Qualified Code(s): C85.11 - Unspecified B-cell lymphoma, lymph nodes of head, face, and neck (8) Pseudomonas aeruginosa infection Code(s): A49.8 - OTHER BACTERIAL INFECTIONS OF UNSPECIFIED SITE Status: Acute - Plan on palliative care post extubation, met with family
[2019-06-10 08:10] VITALS: BP 97/56; TEMP 97.9
--- NOTE | 2019-06-10 09:49 | PRG ---
DATE OF SERVICE: 06/10/2019 SUBJECTIVE: She remains sedated. OBJECTIVE: VITAL SIGNS: Shallow respirations. Blood pressure this morning was 97/57, sats 97% 2 L, respiratory rate 20, temperature 97, pulse 78. CHEST: Rhonchi. CARDIAC: Normal S1, S2. No gallops. ABDOMEN: No masses. ASSESSMENT: 1. Terminal respiratory failure. 2. Pneumonia. 3. Severe deconditioning. 4. Recurrent aspiration. DNR, comfort care. Job ID: [id number]
--- NOTE | 2019-06-10 10:04 | EKG ---
Test Reason : TACHYCARDIA Blood Pressure : / mmHG Vent. Rate : 103 BPM Atrial Rate : 103 BPM P-R Int : 122 ms QRS Dur : 086 ms QT Int : 332 ms P-R-T Axes : 038 006 255 degrees QTc Int : 434 ms Sinus tachycardia with Premature atrial complexes Anterior infarct , age undetermined cannot be excluded Nonspecific T wave abnormality Abnormal ECG Confirmed by DARREL NELSON ([id number]) on 06/10/2019 10:04:13 AM Referred By: Romain METCALF Confirmed By:DARREL NELSON
[2019-06-10] MEDS ORDERED: Lorazepam 2 MG/ML VIAL SLOW IVP PRN (10:41)
--- NOTE | 2019-06-10 10:58 | PDOC.PALPN ---
Palliative Progress Note - Subjective Agonal respirations, family at bedside. Non-responsive - Objective Vital Signs: Vital Signs - Most Recent Temp Pulse Resp BP Pulse Ox 97.9 F 78 20 97/56 L 97 06/10/19 08:00 06/10/19 08:00 06/10/19 08:00 06/10/19 08:00 06/10/19 08:59 - Physical Exam Constitutional: encephalitic, ill appearing HEENT: moist MMs, sclera anicteric Respiratory: diminished lung sound, labored respirations Deviation from normal: appears to have broncheal secretions Cardiovascular: diminished peripheral pulses Gastrointestinal: soft, non-tender Musculoskeletal: no clubbing, muscle wasting Neurology: no focal deficits Skin: fragile, friable Deviation from normal: encephalopathic - Assessment (1) Palliative care encounter Code(s): Z51.5 - ENCOUNTER FOR PALLIATIVE CARE Current Visit: Yes Status: Acute (2) Physical deconditioning Code(s): R53.81 - OTHER [place] Current Visit: Yes Status: Acute (3) Acute respiratory failure Code(s): J96.00 - ACUTE RESPIRATORY FAILURE, UNSP W HYPOXIA OR HYPERCAPNIA Current Visit: Yes Status: Acute Qualifiers: Respiratory failure complication: hypoxia Qualified Code(s): J96.01 - Acute respiratory failure with hypoxia (4) Bacteremia Code(s): R78.81 - BACTEREMIA Current Visit: Yes Status: Acute (5) CAD (coronary artery disease) Code(s): I25.10 - ATHSCL HEART DISEASE OF [place] CORONARY ARTERY W/O ANG PCTRS Current Visit: Yes Status: Acute Qualifiers: Coronary Disease-Associated Artery/Lesion type: [place] artery [place] vs. transplanted heart: [place] heart Associated angina: without angina Qualified Code(s): I25.10 - Atherosclerotic heart disease of [place] coronary artery without angina pectoris (6) Dysphagia Code(s): R13.10 - DYSPHAGIA, UNSPECIFIED Current Visit: Yes Status: Acute (7) Lymphoma Current Visit: Yes Status: Acute Qualifiers: Lymphoma type: non-Hodgkin Non-Hodgkin lymphoma type: B-cell B-cell lymphoma type: unspecified B-cell Lymphoma site: neck Qualified Code(s): C85.11 - Unspecified B-cell lymphoma, lymph nodes of head, face, and neck (8) Pneumonia Code(s): J18.9 - PNEUMONIA, UNSPECIFIED ORGANISM Current Visit: Yes Status: Acute (9) Protein-calorie malnutrition, moderate Code(s): E44.0 - MODERATE PROTEIN-CALORIE MALNUTRITION Current Visit: Yes Status: Acute - Plan Plan: Family support. Scant bronchial secretions, scopolamine patch to mitigate. Ativan for restlessness if needed. Family states Spiritual Care was present earlier., appreciative of support. Emotional support and therapeutic listening. Encouraged family to take moments of rest and utilize [facility]. Although tearful, appear to be comfortable and at [place] with their decision. [40] minutes spent on this encounter with >50% of the time in counseling and coordination of care. - ROS Non Response: due to mental status
[2019-06-10] MEDS ORDERED: Scopolamine 1.5 mg/72 hour Patch TD SCH (11:00)
--- NOTE | 2019-06-10 11:40 | PDOC.PALPN ---
Palliative Progress Note - Subjective Sleeping, family at bedside. - Objective Vital Signs: Vital Signs - Most Recent Temp Pulse Resp BP Pulse Ox 97.9 F 78 20 97/56 L 97 06/10/19 08:00 06/10/19 08:00 06/10/19 08:00 06/10/19 08:00 06/10/19 08:59 - Physical Exam Constitutional: cachectic, emaciated, ill appearing HEENT: moist MMs - Assessment (1) Palliative care encounter Code(s): Z51.5 - ENCOUNTER FOR PALLIATIVE CARE Current Visit: Yes Status: Acute (2) Physical deconditioning Code(s): R53.81 - OTHER [place] Current Visit: Yes Status: Acute (3) Acute respiratory failure Code(s): J96.00 - ACUTE RESPIRATORY FAILURE, UNSP W HYPOXIA OR HYPERCAPNIA Current Visit: Yes Status: Acute Qualifiers: Respiratory failure complication: hypoxia Qualified Code(s): J96.01 - Acute respiratory failure with hypoxia (4) Bacteremia Code(s): R78.81 - BACTEREMIA Current Visit: Yes Status: Acute (5) CAD (coronary artery disease) Code(s): I25.10 - ATHSCL HEART DISEASE OF [place] CORONARY ARTERY W/O ANG PCTRS Current Visit: Yes Status: Acute Qualifiers: Coronary Disease-Associated Artery/Lesion type: [place] artery [place] vs. transplanted heart: [place] heart Associated angina: without angina Qualified Code(s): I25.10 - Atherosclerotic heart disease of [place] coronary artery without angina pectoris (6) Dysphagia Code(s): R13.10 - DYSPHAGIA, UNSPECIFIED Current Visit: Yes Status: Acute (7) Lymphoma Current Visit: Yes Status: Acute Qualifiers: Lymphoma type: non-Hodgkin Non-Hodgkin lymphoma type: B-cell B-cell lymphoma type: unspecified B-cell Lymphoma site: neck Qualified Code(s): C85.11 - Unspecified B-cell lymphoma, lymph nodes of head, face, and neck (8) Pneumonia Code(s): J18.9 - PNEUMONIA, UNSPECIFIED ORGANISM Current Visit: Yes Status: Acute (9) Protein-calorie malnutrition, moderate Code(s): E44.0 - MODERATE PROTEIN-CALORIE MALNUTRITION Current Visit: Yes Status: Acute - Plan Plan: [] minutes spent on this encounter with >50% of the time in counseling and coordination of care.
--- NOTE | 2019-06-11 09:25 | DIS ---
DATE OF ADMISSION: 06/10/2019 DATE OF DISCHARGE: 06/10/2019 PRIMARY CARE PROVIDER: Dr. Mix. DISPOSITION: Discharged to inpatient hospice. FINAL DIAGNOSES: Acute respiratory failure, aspiration pneumonia, vocal cord dysfunction, lymphoma, coronary artery disease. DISCHARGE MEDICATIONS: 1. Scopolamine patch 1.5 mg daily, change every third day. 2. Lorazepam 0.5 mg slow IV push q.4 hours p.r.n. ALLERGIES: NO KNOWN DRUG ALLERGIES. CODE STATUS: DNAR. DIET: No restrictions. PENDING AT TIME OF DISCHARGE: Nothing. HOSPITAL COURSE: The patient admitted through [facility] to the Hospitalist Service after transfer from [facility]. The patient was found to have sepsis. She was started on vancomycin and cefepime. Infectious Disease was consulted. She had acute hypoxic respiratory failure with suspicion of aspiration pneumonia was made. She was hypotensive on pressors. Consultations obtained during the hospital stay. Dr. Greg Klesey, Pulmonology; Dr. Andrea Vidales, Infectious Disease; Dr. Ashwin Santiago, General Surgery; Shubham Mckinney; Ismael Boyd, Cardiology; Palliative Care. Procedures done during her hospital stay on 05/29/2019, bronchoscopy with lavage, Dr. Kelsey; on 05/30/2019, placement of left femoral vein central line, right femoral vein triple-lumen catheter, PEG tube placement. On admission, her white count was 6.1, hemoglobin 7.6, platelet count of 111,000. INR was 1.1. Comprehensive metabolic profile; sodium 137, potassium 4.5, chloride 115, CO2 of 17, BUN 17, creatinine 1.06, glucose 66, magnesium 1.45. Troponin 0.148, cortisol 22, TSH 2.3. The patient was treated with broad-spectrum antibiotics, pressors, intubation, ventilation. Respiratory culture grew Pseudomonas aeruginosa. Bronchial washings grew Pseudomonas aeruginosa and presumptive [place]. Followup chest x-ray 06/07, diffuse infiltrates bilaterally, ET tube. Echocardiogram, EF 45% to 50%. Recommendation by Dr. Andrea Vidales and considered her immunosuppressed from chemotherapy and lymphoma with swallowing dysfunction. She was placed on meropenem and levofloxacin. Vancomycin discontinued. On 05/31/2019, she was continued on IV antibiotics. White count had come up to 17.2, hemoglobin 7.8, platelet count 78,000. Chemistries; sodium 145, potassium 4.1, chloride 118, CO2 of 17, BUN 30, creatinine 0.91. On 06/03/2019, the patient remained intubated, being treated for Pseudomonas aeruginosa infection, hypernatremia. Discussion between the hospitalist and the family confirmed they wanted to continue antibiotic care, ventilation, etc. The patient's chest x-ray on 06/07/2019, ET tube, bilateral infiltrates. White count 28.4, hemoglobin 9.5, platelet count up to 256,000. Chemistries; sodium 146, potassium 4.5, CO2 of 17, BUN 77, creatinine 1.95. On 06/09/2019, decision had been made to remove care as prognosis was dismal. Family was aware. Awaiting remainder of family for removal of endotracheal tube and etc., was removed. On 06/10/2019, I saw the patient, she was unresponsive. Vital signs were stable. She did have breath sounds. Family had decided to consult hospice. Hospice has accepted the patient in transfer. The patient is currently discharged from the Hospitalist Service and admitted to the Inpatient Hospice Service. Job ID: [id number]
== END 2019-06-10 18:04 | disposition hospice, inpatient (51) | DRG 871 ==
LOC: CCU 02:02 → IMCU/EMU 05-31 00:45 → CCU 06-02 09:55 → ONC 06-09 17:36
PROVIDERS: ADMIT Internal Medicine; ATTEND Internal Medicine
PROC: 0B9J8ZZ Drainage of Left Lower Lung Lobe, Via Natural or Artificial Opening Endoscopic (ICD-10-PCS; 2019-05-29)
PROC: 0B9C8ZZ Drainage of Right Upper Lung Lobe, Via Natural or Artificial Opening Endoscopic (ICD-10-PCS; 2019-05-29)
PROC: 0B9G8ZZ Drainage of Left Upper Lung Lobe, Via Natural or Artificial Opening Endoscopic (ICD-10-PCS; 2019-05-29)
PROC: 0B9D8ZZ Drainage of Right Middle Lung Lobe, Via Natural or Artificial Opening Endoscopic (ICD-10-PCS; 2019-05-29)
PROC: 0B918ZZ Drainage of Trachea, Via Natural or Artificial Opening Endoscopic (ICD-10-PCS; 2019-05-29)
PROC: 3E043XZ Introduction of Vasopressor into Central Vein, Percutaneous Approach (ICD-10-PCS; 2019-05-29)
PROC: 30243N1 Transfusion of Nonautologous Red Blood Cells into Central Vein, Percutaneous Approach (ICD-10-PCS; 2019-05-29)
PROC: 0DH63UZ Insertion of Feeding Device into Stomach, Percutaneous Approach (ICD-10-PCS; principal; 2019-05-30)
PROC: 06HY33Z Insertion of Infusion Device into Lower Vein, Percutaneous Approach (ICD-10-PCS; 2019-05-30)
PROC: 0B918ZZ Drainage of Trachea, Via Natural or Artificial Opening Endoscopic (ICD-10-PCS; 2019-06-02)
PROC: 0B9M8ZZ Drainage of Bilateral Lungs, Via Natural or Artificial Opening Endoscopic (ICD-10-PCS; 2019-06-02)
PROC: 0BH18EZ Insertion of Endotracheal Airway into Trachea, Via Natural or Artificial Opening Endoscopic (ICD-10-PCS; 2019-06-02)
PROC: 5A1945Z Respiratory Ventilation, 24-96 Consecutive Hours (ICD-10-PCS; 2019-06-02)
PROC: 5A1945Z Respiratory Ventilation, 24-96 Consecutive Hours (ICD-10-PCS; 2019-06-05)
PROC: 0BH18EZ Insertion of Endotracheal Airway into Trachea, Via Natural or Artificial Opening Endoscopic (ICD-10-PCS; 2019-06-05)
DX: A41.52 Sepsis due to Pseudomonas (principal); J69.0 Pneumonitis due to inhalation of food and vomit; J96.21 Acute and chronic respiratory failure with hypoxia; Z66 Do not resuscitate; Z51.5 Encounter for palliative care; J15.1 Pneumonia due to Pseudomonas; E43 Unspecified severe protein-calorie malnutrition; N17.0 Acute kidney failure with tubular necrosis; C85.11 Unspecified B-cell lymphoma, lymph nodes of head, face, and neck; R64 Cachexia; E87.0 Hyperosmolality and hypernatremia; D61.818 Other pancytopenia; E87.1 Hypo-osmolality and hyponatremia; E87.2 Acidosis; I25.10 Atherosclerotic heart disease of native coronary artery without angina pectoris; I10 Essential (primary) hypertension; E89.0 Postprocedural hypothyroidism; J38.01 Paralysis of vocal cords and larynx, unilateral; E83.42 Hypomagnesemia; E86.1 Hypovolemia; Z95.810 Presence of automatic (implantable) cardiac defibrillator; Z87.891 Personal history of nicotine dependence; Z79.899 Other long term (current) drug therapy; Z79.02 Long term (current) use of antithrombotics/antiplatelets; Z79.82 Long term (current) use of aspirin; Z68.28 Body mass index [BMI] 28.0-28.9, adult
CPT/HCPCS: 36415; 36430; 71045; 80048; 80053; 80061; 80076; 80202; 82533; 82550; 82805; 83735; 83880; 84443; 84484; 85025; 85610; 85730; 86850; 86900; 86901; 87040; 87070; 87077; 87086; 87186; 87205; 93005; 93010; 93306; 93975; 94002; 94003; 94640; J0692; J0744; J1265; J1450; J1650; J1720; J1940; J2020; J2060; J2185; J2250; J2270; J2704; J2765; J2920; J3010; J3370; J3475; J3490; J7620; P9016; P9047; S0028

== ENCOUNTER 2019-06-10 18:12 | Inpatient (IN) | payer OTHER | END 2019-06-10 19:15 | disposition E | DRG 951 | LOC: ONC 18:12 | PROVIDERS: ADMIT Family Medicine; ATTEND Family Medicine | DX: Z51.5 Encounter for palliative care (principal); A41.9 Sepsis, unspecified organism; J96.01 Acute respiratory failure with hypoxia; C85.11 Unspecified B-cell lymphoma, lymph nodes of head, face, and neck; Z66 Do not resuscitate; I25.10 Atherosclerotic heart disease of native coronary artery without angina pectoris; I10 Essential (primary) hypertension; E78.5 Hyperlipidemia, unspecified; E89.0 Postprocedural hypothyroidism; Z95.810 Presence of automatic (implantable) cardiac defibrillator; Z95.5 Presence of coronary angioplasty implant and graft; Z90.710 Acquired absence of both cervix and uterus ==